=== PATIENT | female | born 1955 | race Caucasian/White ===

== ENCOUNTER 2020-02-21 09:02 | Outpatient (CLI) | payer OTHER, SELFPAY ==
--- NOTE | ~2020-02-21 | XR_ITS ---
EXAMINATION: XR barium swallow DATE: 02/21/2020 10:42 INDICATION: Dysphagia. TECHNIQUE: The patient drank thick barium, gas-producing crystals, and thin barium. Fluoroscopy of th e hypopharynx and esophagus was performed. Fluoroscopy exposure time was minutes. The total number of images was 61. COMPARISON: CT abdomen and pelvis 09/21/2016 FINDINGS: There is no mass or stricture of the esophagus. Esophageal motility is normal. There is no hiatal hernia. IMPRESSION: 1. Normal esophagram. Reviewed, dictated and finalized at location A. GROUND EQUIPMENT ERECTOR IMPRESSION: 1. Normal esophagram.
[2020-02-21 09:42] LABS: Hematocrit 43.2 % (37.0-47.0); Hemoglobin 14.4 g/dL (12.0-15.0); Mean Corpuscular HGB Conc 33.3 g/dl (32-36); Mean Corpuscular Hemoglobin 31.3 pg (26-34); Mean Corpuscular Volume 93.9 fl (80-100); Mean Platelet Volume 9.2 fl (7.4-10.4); Platelet Count Result 284 k/mm3 (150-375); Red Cell Distribution Width 12.2 % (11.5-14.5); White Blood Count 7.7 K/mm3 (4.5-10.0)
[2020-02-21 09:46] LABS: Add Urine Microscopic? YES; Appearance Urine Clear (Clear); Bilirubin Urine Negative (Negative); Blood Urine Negative (Negative); Color Urine Yellow (Yellow); Glucose Urine UA Negative (Negative); Ketones Urine Negative (Negative); Leukocyte Esterase Ur 2+ LEU/UL (NEGATIVE); Mucus Urine Rare /lpf; Nitrate Urine Negative (Negative); Protein Urine Negative (Negative); RBC Urine 0-2 /hpf (0-2); Specific Grav Ur 1.015 (1.001-1.035); Squamous Epithelial Cell Urine Occasional /hpf (Few); Urobilinogen Urine Negative mg/dL (<2.0); WBC Urine 21-30 /hpf (0-3)
[2020-02-21 09:56] LABS: Alanine Aminotransferase 29 U/L (4-35); Albumin Level 4.6 g/dL (3.5-5.1); Alkaline Phosphatase 79 U/L (38-126); Anion Gap 13 mmol/L (8-16); Aspartate Amino Transferase 40 U/L (14-36); Bilirubin,Total 0.7 mg/dL (0.2-1.3); Blood Urea Nitrogen 13 mg/dL (7-17); Calcium 9.4 mg/dL (8.4-10.2); Carbon Dioxide 28 mmol/L (22-30); Chloride 102 mmol/L (98-107); Cholesterol 206 mg/dL (0-200); Estimated Glomerular Filt Rate > 60; Glucose 102 mg/dL (65-105); HDL Direct 57 mg/dL; Potassium 3.9 mmol/L (3.4-5.0); Sodium 143 mmol/L (137-145); Triglycerides 164 mg/dL (<150)
[2020-02-21 10:08] LABS: LDL Cholesterol Direct 124 mg/dL
== END 2020-02-21 09:03 | disposition home or self-care (01) ==
PROVIDERS: PCP Internal Medicine; Visit Provider Internal Medicine
DX: R13.10 Dysphagia, unspecified (principal); I10 Essential (primary) hypertension
CPT/HCPCS: 36415; 74220; 80053; 80061; 81001; 84443; 85027

== ENCOUNTER 2020-03-08 10:01 | Outpatient (CLI) | payer OTHER, SELFPAY ==
[2020-03-08 12:00] LABS: Hepatitis B Surface Antigen Negative (Negative)
[2020-03-08 12:05] LABS: HAV RESULT Negative (Negative); Hepatitis B Core IgM Result Negative (Negative)
[2020-03-08 12:17] LABS: Hepatitis C Virus Antibody Negative (Negative)
== END 2020-03-08 10:02 | disposition home or self-care (01) ==
PROVIDERS: PCP Internal Medicine; Visit Provider Internal Medicine
DX: R74.8 Abnormal levels of other serum enzymes (principal)
CPT/HCPCS: 36415; 80074

== ENCOUNTER 2020-05-28 08:56 | Outpatient (CLI) | payer OTHER, SELFPAY ==
--- NOTE | ~2020-05-28 | MM_ITS ---
EXAMINATION: MM screening [facility] BI w alyson HISTORY: Screening TECHNIQUE: Craniocaudal and mediolateral oblique 3-D tomosynthesis images were obtained and synthetic 2-D images were generated. CAD analysis was submitted and interpreted. COMPARISON: Comparison to multiple prior studies sequentially, with oldest reviewed study dated 01/28. BREAST PARENCHYMAL COMPOSITION: There are scattered areas of fibroglandular density. FINDINGS: There are benign bilateral breast calcifications. There is a benign left breast mass with p eripheral eggshell calcification. There is no evidence of suspicious mass, calcification, or architec tural distortion to suggest malignancy in either breast. There has been no suspicious interval change . IMPRESSION: 1. No mammographic evidence of malignancy. 2. Recommend routine screening mammography in one year. BI-RADS Category 2: Benign finding(s). Reviewed, dictated and finalized at location A. DOFFER
--- NOTE | ~2020-05-28 | DEXA_ITS ---
Bone Density Report Name: Elif Monzon Age: 65 Sex: Female Ethnicity: White Date of : 1955 Indication: postmenopausal; parental hip fracture; inflammatory bowel disease; hysterectomy; Referring Provider: FANNY, AMARJIT Study: Bone densitometry was performed. Exam Date: May 28, 2020 Accession number: [id number] Bone Density: Region BMD T-score Z-score Classification AP Spine (L1-L4) 0.995 -0.5 1.2 Normal Femoral Neck (Left) 0.745 -0.9 0.5 Normal Total Hip (Left) 0.927 -0.1 1.0 Normal Total Hip Bilateral Avg 0.930 -0.1 1.0 Normal Femoral Neck (Right) 0.801 -0.4 1.0 Normal Total Hip (Right) 0.932 -0.1 1.0 Normal World Health Organization criteria for BMD impression classify patients as: Normal (T-score at or above -1.0), Osteopenia (T-score between -1.0 and -2.5), or Osteoporosis (T-score at or below -2.5). 10-year Fracture Risk: FRAX not reported because: All T-scores for Spine Total, Hip Total, Femoral Neck at or above -1.0 Previous Exams: Region Exam Age BMD T-score BMD Change BMD Change Date g/cm2 vs Baseline vs Previous AP Spine(L1-L4) 05/28/2020 65 0.995 -0.5 -0.177(-15.1%) -0.027(-2.6%)* 06/11/2014 59 1.021 -0.2 -0.151(-12.9%) -0.151(-12.9%) 04/23/2009 54 1.172 1.1 Total Hip(Left) 05/28/2020 65 0.927 -0.1 -0.138(-12.9%) -0.030(-3.2%)* 06/11/2014 59 0.957 0.1 -0.107(-10.1%) -0.107(-10.1%) 04/23/2009 54 1.065 1.0 Total Hip(Right) 05/28/2020 65 0.932 -0.1 -0.121(-11.5%) -0.040(-4.1%)* 06/11/2014 59 0.972 0.2 -0.081(-7.7%)# -0.081(-7.7%)# 04/23/2009 54 1.053 0.9 *Denotes significance at 95% confidence level, LSC for AP Spine = 0.022 g/cm2, LSC for Total Hip = 0.027 g/cm2 Clinical Information Provided by Patient: Parent has had a hip fracture Has used the following medications: Vitamin D Has the following medical conditions: Inflammatory bowel diseases, Hysterectomy Patient maximum height was 66 Menopause Age: 54 No regular weight bearing exercise Does not regularly consume dairy products Onset of menses at age 14 Number of children 1 Impression: The patient has normal bone mass. The patient has risk factors, including: parental hip fracture. The BMD for the AP Spine(L1-L4) decreased, changing by -2.6% since the last DXA exam. The BMD for the Total Hip(Left) decreased, changing by -3.2% since the last DXA exam. The BMD for the Total Hip(Right) decreased, changing by -4.1% since t
== END 2020-05-28 08:57 | disposition home or self-care (01) ==
LOC: ANHIMG 08:59
PROVIDERS: Family Provider Internal Medicine; PCP Internal Medicine; Visit Provider Nurse Practitioner
DX: Z12.31 Encounter for screening mammogram for malignant neoplasm of breast (principal); Z78.0 Asymptomatic menopausal state
CPT/HCPCS: 77063; 77067; 77080

== ENCOUNTER 2020-06-19 15:09 | Outpatient (CLI) | payer OTHER, SELFPAY ==
--- NOTE | ~2020-06-19 | XR_ITS ---
XR abdomen/kub 1V DATE: 06/19/2020 15:37 INDICATION: Frequency of micturition TECHNIQUE: Supine AP views COMPARISON: 06/19/[address] abdomen pelvis FINDINGS: There is a moderate amount of fecal material in the colon. No bowel obstruction. The psoas shadows are intact. No visceromegaly is evident. No significant abnormal calcification is detected. Included skeletal structures are unremarkable. IMPRESSION: Nonspecific abdomen Reviewed, dictated and finalized at Location A. Reviewed, dictated and finalized at location B. IMPRESSION: Nonspecific abdomen
--- NOTE | ~2020-06-19 | CT_ITS ---
EXAMINATION: CT abdomen pelvis wo con DATE: 06/19/2020 15:41 INDICATION: Urinary frequency TECHNIQUE: Computed tomography (CT) of the abdomen and pelvis was performed without intravenous contr ast. Automated exposure control and iterative reconstruction technique were employed. Exam dose: 545 .76 mGy-cm total exam DLP. COMPARISON: 09/21/2016 CT abdomen pelvis FINDINGS: The included lower lung zones are clear of infiltrate or consolidation. Normal heart size. No pericardial or pleural effusion. The liver, gallbladder, bile ducts, pancreas, pancreatic duct, spleen, and adrenal glands are unremar kable. Approximately 2 mm nonobstructing lower pole right renal calculus. No other urinary tract calculus or hydroureteronephrosis of either side is noted. No renal mass lesion is evident on this limited noncontrast examination. Normal caliber of the abdominal aorta. No intraperitoneal or retroperitoneal or pelvic mass lesion or adenopathy or ascites. Status post hysterectomy. The urinary bladder is unremarkable. There are numerous diverticula of the sigmoid and descending colon; no evidence of diverticulitis. The appendix is not detected but there is no evidence of diverticulitis. Hemangioma of first lumbar vertebral body. No suspicious osteolytic or osteoblastic lesions are noted . Severe degenerative disc disease and mild retrolisthesis at L5-S1. IMPRESSION: Small lower pole nonobstructing right renal calculus Status post hysterectomy Diverticulosis of the left colon; no CT evidence of diverticulitis Reviewed, dictated and finalized at Location A. Reviewed, dictated and finalized at location B.
== END 2020-06-19 15:10 | disposition home or self-care (01) ==
PROVIDERS: PCP Internal Medicine; Visit Provider Nurse Practitioner Adult Health
DX: R35.0 Frequency of micturition (principal); Z90.710 Acquired absence of both cervix and uterus; N20.1 Calculus of ureter; M47.817 Spondylosis without myelopathy or radiculopathy, lumbosacral region
CPT/HCPCS: 74018; 74176

== ENCOUNTER 2020-08-21 13:36 | Outpatient (CLI) | payer OTHER, SELFPAY | END 2020-08-21 13:37 | disposition home or self-care (01) | LOC: ANHAUDASC 13:41 | PROVIDERS: PCP Internal Medicine; Visit Provider Otolaryngology | DX: H93.12 Tinnitus, left ear (principal); H91.92 Unspecified hearing loss, left ear; H69.82 Other specified disorders of Eustachian tube, left ear | CPT/HCPCS: 92557; 92567 ==

== ENCOUNTER 2022-09-16 15:49 | Outpatient (CLI) | payer MEDICARE, SELFPAY ==
--- NOTE | ~2022-09-16 | MM_ITS ---
EXAMINATION: MM screening [facility] BI w alyson HISTORY: Screening mammogram TECHNIQUE: Craniocaudal and mediolateral oblique 3-D tomosynthesis images were obtained and synthetic 2-D images were generated. CAD analysis was submitted and interpreted. COMPARISON: 05/28/2020, 06/17/2018 bilateral screening mammogram examinations BREAST PARENCHYMAL COMPOSITION: There are scattered areas of fibroglandular density. FINDINGS: Scattered benign calcifications are noted bilaterally. There is no evidence of suspicious m ass, calcification, or architectural distortion to suggest malignancy in either breast. There has bee n no suspicious interval change. IMPRESSION: 1. No mammographic evidence of malignancy. 2. Recommend routine screening mammography in one year. BI-RADS Category 2: Benign finding(s). Reviewed, dictated and finalized at location A.
== END 2022-09-16 15:50 | disposition home or self-care (01) ==
LOC: ANHIMG 15:51
PROVIDERS: PCP Internal Medicine; Visit Provider Obstetrics & Gynecology Gynecology
DX: Z12.31 Encounter for screening mammogram for malignant neoplasm of breast (principal)
CPT/HCPCS: 77063; 77067

== ENCOUNTER 2024-06-25 23:58 | Inpatient (IN) | payer MEDICARE, SELFPAY ==
--- NOTE | ~2024-06-25 | CT_ITS ---
CLINICAL INDICATION: Right lower quadrant pain COMPARISON: 06/26/2024. TECHNIQUE: Multiple contiguous axial images of the abdomen and pelvis were performed without the admi nistration of intravenous contrast The dose-length product (DLP) was 412.33 mGy-cm. Automated exposure control and iterative reconstruction technique were employed. FINDINGS/OBSERVATIONS: Visualized lower thorax: The bilateral lung bases are clear. The heart is of normal size, without pericardial effusion. Liver: The liver demonstrates homogeneous attenuation and is not enlarged. Gallbladder and biliary system: The gallbladder is distended, and otherwise unremarkable. Pancreas: Limited evaluation of the pancreas secondary to the lack of intravenous contrast. Spleen: The spleen demonstrates homogeneous attenuation and is not enlarged. Kidneys: The bilateral kidneys are unremarkable, without hydronephrosis or renal calculi. Adrenal glands: Unremarkable. Gastrointestinal tract: Rectosigmoid diverticulitis is identified with a contained perforation in the right lower quadrant an d a surrounding collection of fluid and air measuring 5.6 x 3.6 x 3.0 cm, with adjacent small bowel ( located cranially), and possibly a fistulous connection to this adjacent loop of small bowel. Appendix: The air-filled appendix is of normal caliber (coronal series, images 39 through 51). Vasculature: Unremarkable. Lymph nodes: Limited evaluation without intravenous contrast. Pelvic structures: The bladder is only minimally distended, and otherwise unremarkable. The uterus is either surgically absent or markedly atrophic. Body wall and musculoskeletal: Small fat-containing umbilical hernia. Degenerative disease at the level of L5/S1 with disc space narrowing and endplate changes. IMPRESSION: Redemonstration of sigmoid diverticulitis now with a 5.6 cm collection of fluid and air in the right hemipelvis, for which an abscess is suspected. Reviewed, dictated and finalized at location A.
--- NOTE | ~2024-06-25 | CT_ITS ---
CT of the Abdomen and Pelvis: Indication: Abdominal pain Technique: 2.5 mm axial scans were obtained through the abdomen and pelvis following intravenous adm inistration of 100 cc of Omnipaque 350. Dose reduction technique was used on this scan by utilizing a utomated exposure control and iterative reconstruction technique. The dose-length product (DLP) was 4 64.97 mGy-cm. Findings: Scans through the lung bases are unremarkable. There is diffuse hepatic steatosis. The spleen, pancreas, gallbladder, adrenals and kidneys are withi n normal limits. No evidence of aortic aneurysm. No lymphadenopathy. There is wall thickening and inflammatory change the distal sigmoid colon, compatible with acute dive rticulitis. There is a small amount of fluid extending to the right side, with additional small bubbl es of free air in the right mid abdomen. No abscess. Images through the pelvis were performed. Urinary bladder unremarkable. Status post hysterectomy. No pelvic mass. No ascites. Impression: Sigmoid diverticulitis with evidence of perforation, with small amount of pneumoperitoneum present, a s detailed above. No abscess evident. Reviewed, dictated and finalized at location . Impression: Sigmoid diverticulitis with evidence of perforation, with small amount of pneum operitoneum present, as detailed above. No abscess evident.
[2024-06-26] VITALS (12 sets, daily range): BP systolic 119–156; BP diastolic 58–86; PULSE 80–131; RESP 15–20; TEMP 36.3–36.9; O2SAT 93–100; BMI 26.8
--- OUTSIDE RECORDS SUMMARY | 2024-06-26 | XMS_ITS | Clinical Summary ---
Author Organization [facility] Address [address] [address] Phone Care Team Providers Care Informatics Coordinator Name Role Phone Jacob Lr MD Primary Care Provider Allergies Active Allergy Reactions Criticality Noted Date Comments Penicillins Rash 11/25/2016 Piperacillin Sod-Tazobactam So Rash 03/24 Medications ALPRAZolam (XANAX) 0.25 MG TabletIndication s:usually takes 2 at night Take 0.25 mg by mouth 3 times daily as needed. Active polycarbophil calcium (FIBERCON) 625 MG Tablet Take 625 mg by mouth daily. Active metoprolol tartrate (LOPRESSOR) 50 MG Tablet Take 75 mg by mouth 2 times daily. Active amitriptyline (ELAVIL) 25 MG Tablet Take 25 mg by mouth nightly. Active cyanocobalamin 1000 MCG Tablet Take 1,000 mcg by mouth daily. Active BIOTIN FORTE PO Take by mouth. Active TURMERIC CURCUMIN PO Take by mouth. Act jesus sulfamethoxazole -trimethoprim DS (BACTRIM DS, SEPTRA DS) 800-160 MG Tablet Take 1 Tab by mouth 2 times daily. Active Probiotic Product (PROBIOTIC DAILY PO) Take by mouth. Activ e polyethylene glycol (MIRALAX) Powder Use entire 255g bottle with 64oz of clear liquid as directed for colonoscopy prep. 255 g 7 Active ondansetron (ZOFRAN ODT) 4 MG TABLET DISPERSIBLE Take 1 Tab by mouth every 8 hours as needed for Nausea. 15 Tab 1 7 Active Additional Information Patient not taking.Reported on 02/11/2017 Cholecalciferol (VITAMIN D PO) Take by mouth. Active Magnesium Oxide (MAG-OX 400 PO) Take 400 mg by mouth. Active Multiple Vitamin (MULTI-VITAMIN PO) Take by mouth. Activ e raNITIdine (ZANTAC) 150 MG Tablet Take 1 Tab by mouth 2 times daily. 180 Tab 7 Active Family History Medical History Relation Name Comments Depression Brother Congestive Heart Failure Father Lung Cancer Mother Cancer Sister 1 breast cancer Cancer Sister 2 uterine Relation Name Status Comments Brother Father Mother Sister 1 Sister 2 Sister 3 IBS Social History Tobacco Use Types Packs/Day Years Used Date Smoking Tobacco: Never Smokeless Tobacco: Never Alcohol Use Standard Drinks/Week Comments No 0 (1 standard drink = 0.6 oz pur e alcohol) Comments Unknown Sex and Gender Information Value Date Recorded Sex Assigned at Not on file Legal Sex Female 7:33 PM CDT Gender Identity Not on file Sexual Orientation Not on file Last Filed Vital Signs Vital Sign Reading Time Taken Comments Blood Pressure 145/86 03/24/2017 12:00 PM WILDLIFE BIOLOGIST Pulse 67 03/24/2017 10:53 AM WILDLIFE BIOLOGIST Temperature 36 C (96.8 F) 03/24/2017 12:00 PM WILDLIFE BIOLOGIST Respiratory Rate 16 03/24/2017 12:00 PM WILDLIFE BIOLOGIST Oxygen Saturation 100% 03/24/2017 12:00 PM WILDLIFE BIOLOGIST Inhaled Oxygen Concentration - - Weight 72.6 kg (160 lb) 03/24/2017 10:53 AM WILDLIFE BIOLOGIST Height 167.6 cm (5' 6 ) 03/24/2017 10:53 AM WILDLIFE BIOLOGIST Body Mass Index 25.82 03/24/2017 10:53 AM WILDLIFE BIOLOGIST Plan of Treatment Health Maintenance Due Date Last Done Comments DEXA Bone Density 1955 Hepatitis C Virus (HCV) Screening 1955 TdaP Immunization 1955 Colonoscopy 2002 Colorectal Cancer Screening 2002 Cologuard 2007 Immunochemical Fecal Occult Blood 2007 Mammogram 2007 Pneumococcal Immunization (5 0+ years) (1 of 1 - PCV) 2007 Zoster Immunization (1 of 2) 2007 Influenza Immunization (#1) 2023 SARS-COV-2 Immunization ( - 2023-25 season) 2023 Respiratory Syncytial Virus (RSV) Immunization (Adult) (1 - 1-dose 75+ series) 02/02/2032 Hepatitis B Immunization Aged Out No longer eligible based on patient's age to complete this topic Meningococcal Immunization (ACWY) Aged Out No longer eligible based on patient's age to complete this topic Rotavirus Immunization Aged Out No lo nger eligible based on patient's age to complete this topic Care Teams Informatics Coordinator Relationship Specialty Start Date End Date Jacob Lr MD [address] [place], [place] [id number] PCP - General Internal Medicine 11/24/16
--- OUTSIDE RECORDS SUMMARY | 2024-06-26 | XMS_ITS | Continuity of Care Document ---
Author Organization [facility] Address [address] [facility] [place] [address] Phone Care Team Providers Care Soap Drier Operator Name Role Phone Maryan HATCH FACS, Kasi Unavailable Unavailab le Procedures Procedure Date Eye Exam Established Pt Office/outpatient Visit, Est Eye Exam & Treatment Eye Exam Established Pt Advance Directives Directive Yes / No Effective Date File Name No Information Encounters Encounter Description Practice Location Reason(s) For Visit Diagnoses Date Provider Providers Copied on Encounter [facility], [address] [place] [address] [address], [place], [place], [address], [place] tel:[phone] SEC Pat Abhishek Cox No Information 1 7 Maryan Villaseñor. [address] [facility], [address], [place], [place], [address], [place]. tel:[phone] Office/outpat ient Visit, Est [facility], [address] [place] [address] [address], [place], [place], [address], [place] tel:[phone] [facility] No Information 0-[address] [facility], [address], [place], [place], [address], [place]. tel:[phone] [facility], [address] [place] [address] [address], [place], [place], [address], [place] tel:[phone] [facility] No Information 6-[address], [place], [place], [address], [place]. tel:[phone] [facility] Eye [facility], [address], [place], [place], [address], [place] tel:[phone] [facility] No Information [address], [address], [place], [place], [address], [place]. tel:[phone] Family History Family Member Type Diagnosis Age At Onset No Information Payers Payer name Insurance type Covered green party ID Authoriza tion(s) No Information Social History Type Description Quantity Date Captured Comments Sex Female Smoking Status No Information Chief Complaint And Reason For Visit No Information Reason For Referral Reason For Referral No Information History Of Present Illness Encounter Date Complaint History Of Prese nt Illness No Information Functional Status Date Functional Assessmen t No Information Instructions Date Instruction Additional Infor mation No Information Assessments Type Assessment Date No Information Patient Care Teams Name Effective Dates (start - stop) Status Members No Information
--- OUTSIDE RECORDS SUMMARY | 2024-06-26 | XMS_ITS | Continuity of Care Document ---
Author Name [facility] Organization [facility] Care Team Providers Care Electroplater Automatic Name Role Phone [facility] Unavailable Unavailable Immunizations Combined list of available immunizations from the Department of Defense and Veterans Affairs facilities. Immunization Series Date Given Administered By Site Reaction Lot Number [id number] Code Drug Medical Services Coordinator Status Comments Source COVID-19 (MODERNA), MRNA, LNP-S, PF, 100 MCG/0.5 ML DOSE 3 2020 207 complet ed MOD; [id number]; 2 [facility]
--- OUTSIDE RECORDS SUMMARY | 2024-06-26 02:44 | XMS_ITS | Clinical Summary ---
Author Organization [facility] Address [address] [address] Phone Care Team Providers Care Labor Commissioner Name Role Phone Jacob Lr MD Primary Care Provider [phone] Allergies Active Allergy Reactions Criticality Noted Date [...] Comments Blood Pressure 145/86 03/24/2017 12:00 PM RN PLACEMENT Pulse 67 03/24/2017 10:53 AM RN PLACEMENT Temperature 36 C (96.8 F) 03/24/2017 12:00 PM RN PLACEMENT Respiratory Rate 16 03/24/2017 12:00 PM RN PLACEMENT Oxygen Saturation 100% 03/24/2017 12:00 PM RN PLACEMENT Inhaled Oxygen Concentration - - Weight 72.6 kg (160 lb) 03/24/2017 10:53 AM RN PLACEMENT Height 167.6 cm (5' 6 ) 03/24/2017 10:53 AM RN PLACEMENT Body Mass Index 25.82 03/24/2017 10:53 AM RN PLACEMENT Plan of Treatment Health Maintenance Due Date [...] age to complete this topic Care Teams Labor Commissioner Relationship Specialty Start Date End Date Jacob Lr MD [address] [place], [place] [id number] PCP - General Internal Medicine 11/24/16
--- OUTSIDE RECORDS SUMMARY | 2024-06-26 02:44 | XMS_ITS | Continuity of Care Document ---
Author Name [facility] Organization [facility] Care Team Providers Care Certified Novell Administrator Name Role Phone [facility] Unavailable Unavailable Immunizations Combined list of available immunizations from the Department of Defense and Veterans Affairs facilities. Immunization Series Date Given Administered By Site Reaction Lot Number CVX Code Drug Seo Coordinator Status Comments Source COVID-19 (MODERNA), MRNA, LNP-S, PF, 100 MCG/0.5 ML DOSE 3 2020 207 complet ed MOD; [id number]; 2 [facility]
--- OUTSIDE RECORDS SUMMARY | 2024-06-26 02:44 | XMS_ITS | Continuity of Care Document ---
Author Organization [facility] Address [address] [place] [address] Phone Care Team Providers Care Baseball Coach Name Role Phone Maryan HATCH FACS, Kais Unavailable Unavailab le Procedures Procedure Date Eye Exam Established Pt Office/outpatient Visit, Est Eye Exam & Treatment Eye Exam Established Pt Advance Directives Directive Yes / No Effective Date File Name No Information Encounters Encounter Description Practice Location Reason(s) For Visit Diagnoses Date Provider Providers Copied on Encounter [facility], [address] [place] [address] [address], [place], [place], [address], [place] tel:[phone] SEC Pat Abhishek Cox No Information 1 7 Maryan Villaseñor. [address] [employer] [facility], [address], [place], [place], [address], [place]. tel:[phone] Office/outpat ient Visit, Est [facility], [address] [place] [address] [address], [place], [place], [address], [place] tel:[phone] [facility] No Information 0-[address] [facility], [address], [place], [place], [address], [place]. tel:[phone] [facility], [address] [place] [address] [address], [place], [place], [address], [place] tel:[phone] [facility] No Information 6-[address], [place], [place], [address], [place]. tel:[phone] [facility] Eye [facility], [address], [place], [place], [address], [place] tel:[phone] [facility] No Information [address], [place], [place], [address], [place]. tel:[phone] Family History Family Member Type Diagnosis Age [...]
[2024-06-26 03:08] LABS: Basophils Absolute Auto 0.1 K/mm3 (0.0-0.1); Basophils Percent Auto 0.3 % (0.2-1.2); Eosinophils Percent Auto 0.1 % (0-4.4); Hematocrit 42.6 % (37.0-47.0); Hemoglobin 14.3 g/dL (12.0-15.0); Immature Granulocyte Absolute 0.07 K/mm3 (0.00-0.031); Immature Granulocyte Percent A 0.4 % (0-0.5); Lymphocytes Absolute Auto 1.32 K/mm3 (0.9-3.2); Lymphocytes Percent Auto 7.4 % (18.3-44.2); Mean Corpuscular HGB Conc 33.6 g/dl (32-36); Mean Corpuscular Hemoglobin 31.2 pg (26-34); Mean Platelet Volume 9.4 fl (7.4-10.4); Monocytes Percent Auto 5.4 % (2.6-8.5); Neutrophils Absolute Auto 15.4 K/mm3 (1.3-6.7); Neutrophils Percent Auto 86.4 % (45.5-73.1); Platelet Count Result 287 k/mm3 (150-375); Red Blood Count 4.58 M/mm3 (4.2-5.4); Red Cell Distribution Width 12.3 % (11.5-14.5); White Blood Count 17.8 K/mm3 (4.5-10.0)
[2024-06-26 03:43] LABS: Alanine Aminotransferase 33 U/L (6-35); Albumin Level 4.5 g/dL (3.5-5.1); Alkaline Phosphatase 67 U/L (38-126); Anion Gap 13 mmol/L (4-12); Aspartate Amino Transferase 48 U/L (14-36); Bilirubin,Total 0.9 mg/dL (0.2-1.3); Blood Urea Nitrogen 14 mg/dL (7-17); Calcium 9.8 mg/dL (8.4-10.2); Carbon Dioxide 23 mmol/L (22-30); Chloride 102 mmol/L (98-107); Estimated CRCL calculation 49 ml/min; Estimated Glomerular Filt Rate > 60; Glucose 134 mg/dL (65-110); Lipase 209 U/L (23-300); Potassium 4.4 mmol/L (3.4-5.0); Sodium 138 mmol/L (137-145)
[2024-06-26] MEDS: ONDANSETRON INJ 4 MG/2 ML VIAL IV PUSH (04:05)
[2024-06-26] MEDS: HYDROmorphone HCL INJ (*CRX) 1 MG/ML SYR 0.5 MG IV PUSH (04:05)
[2024-06-26 04:13] LABS: Add Urine Microscopic? NO; Appearance Urine Clear (Clear); Bilirubin Urine Negative (Negative); Blood Urine Negative (Negative); Color Urine Yellow (Yellow); Glucose Urine UA Negative (Negative); Ketones Urine Negative (Negative); Leukocyte Esterase Ur Negative LEU/UL (Negative); Nitrate Urine Negative (Negative); Protein Urine Negative (Negative); Specific Grav Ur 1.013 (1.001-1.035); Urobilinogen Urine 0.2 mg/dL (<2.0)
[2024-06-26] MEDS: CEFEPIME 2 GM/NS 50 ML 2 GM/50 ML BAG IVPB (04:27)
[2024-06-26] MEDS: SODIUM CHLORIDE 0.9% IV 1,000 ML 999 ML IV CONT ×2 (04:27→04:28)
[2024-06-26] MEDS: SODIUM CHLORIDE 0.9% IV 300 ML 999 ML IV CONT (04:28)
[2024-06-26 04:42] LABS: BEDSIDEPREGUCG Negative (Negative)
[2024-06-26] MEDS: metroNIDAZOLE 500 MG/ISO 100ML 500 MG/100 ML BAG 100 MG IVPB ×3 (05:34→17:35)
--- NOTE | 2024-06-26 05:35 | ECG_ITS ---
Test Date: 2024-06-26 06:04:12 Measurements Intervals [place] Rate: 118 P: -3 CO: 150 QRS: 5 QRSD: 87 T: 29 QT: 348 QTc: 488 Interpretive Statements SINUS TACHYCARDIA NONSPECIFIC ST AND T-WAVE ABNORMALITY ABNORMAL ECG No previous ECG available for comparison Electronically Signed On 06-26-2024 06:54:05 CDT by Gaudencio Garcia M.D.
--- NOTE | 2024-06-26 05:56 | ED_ITS ---
HPI - General Adult General Chief complaint: Abdominal Pain Stated complaint: Right lower abd pain Time Seen by Provider: 06/26/24 02:32 History of Present Illness HPI narrative: This is a 69-year-old female presenting ED with chief complaint of abdominal pain. Yesterday she developed pain across her lower abdomen that then localized to the lower right quadrant. She has had a fever of 100.4 at home. She has had episode of nausea vomiting some minor diarrhea. She denies chest pain difficulty breathing urinary symptoms. Related Data Home Medications ?Medication ?Instructions ?Recorded ?Confirmed ?Last Taken ?Type alprazolam 0.25 mg tablet 0.25 mg PO BID 07/24/20 06/01/22 Unknown History amitriptyline 25 mg tablet 25 mg PO QHS 07/24/20 06/01/22 Unknown History metoprolol tartrate 50 mg tablet 50 mg PO BID 07/24/20 06/01/22 Unknown History oxybutynin chloride 5 mg tablet 5 mg PO DAILY 06/01/22 06/01/22 Unknown History Allergies Allergy/AdvReac Type Severity Reaction Status Date / Time Penicillins Allergy Unknown Unknown Verified 06/25/24 23:58 piperacillin Allergy Unknown unknown Verified 06/25/24 23:58 tazobactam Allergy Unknown unknown Verified 06/25/24 23:58 PIPERACILLIN SODIUM Allergy Unknown RASH Uncoded 06/01/22 13:14 TAZOBACTAM SODIUM Allergy Unknown RASH Uncoded 06/01/22 13:14 PMFSH Family History Family History Sibling Depression Family history of malignant neoplasm of uterus Family history of malignant neoplasm of breast in first degree relative Patient's sister is in good health Mother Family history of lung cancer Father Family history of congestive heart failure Family history of heart disease in male family member before age 55 Other Family history of cardiovascular disease Hypertension Social History Social History (Updated 06/01/22 @ 13:31 by Milka Ogden [facility]) Smoking status: Never smoker Alcohol intake: never Lack of Transportation: No Lack of Food: Never True Current Housing: I Have Housing Concerned About Future Housing: No Difficulty Paying Gas/Electric Bills: No Difficulty Paying for Meds: No Currently Unemployed: No Education: Bachelor's Degree Difficulty w/ Childcare or Family Care: No Exam 2 Narrative: APPEARANCE: No apparent distress. Head: atraumatic. EYES: EOMI, NOSE: Atraumatic NECK: Trachea midline RESPIRATORY: No increased rate of breathing CARDIOVASCULAR: RRR, ABDOMINAL: Tenderness in the right lower quadrant with voluntary guarding. There is the abdomen is soft nontender with no guarding rebound MUSCULOSKELETAl: No obvious deformities NEURO: Alert. Moving 4/4 extremities SKIN:: Warm, dry. Normal color PSYCHIATRIC: Normal affect Course Vital Signs Vital signs: Vital Signs Temperature 97.6 F 06/26/24 00:08 Pulse Rate 97 06/26/24 00:08 Respiratory Rate 20 06/26/24 00:08 Blood Pressure 152/86 H 06/26/24 00:08 Pulse Oximetry 100 06/26/24 00:08 Oxygen Delivery Room Air 06/26/24 00:08 Temperature 97.6 F 06/26/24 00:08 Pulse Rate 131 H 06/26/24 04:39 Respiratory Rate 15 06/26/24 04:39 Blood Pressure 156/86 H 06/26/24 04:39 Pulse Oximetry 95 06/26/24 04:39 Oxygen Delivery Room Air 06/26/24 00:08 Medical Decision Making [facility] Narrative Medical decision making narrative: -Course: 69-year-old female presenting with right lower quadrant abdominal pain. Surprisingly the CT showed diverticulitis with microperforation. White count is elevated 18. She was started on cefepime Flagyl due to a penicillin allergy. She has been given fluid resuscitation. Patient will be admitted the hospital for management of her diverticulitis. -DDX includes but is not limited to: Appendicitis, cholecystitis, diverticulitis, UTI -Co-morbidities complicating care: Sinus tachycardia, penicillin allergy -Independent interpretation of studies: White count 17.8. Rest her labs within normal limits CT showed diverticulitis with microperforation. -Discussion of Management/Consultants: [facility] Independent EKG interpretation: Rhythm [sinus], Rate [118], [place] -[normal], [place] -[normal], QRS [narrow], QTC [normal], T waves -[negative for concerning inversions], ST Segments - [Negative for concerning elevations] Final interpretations: [Normal Sinus Rhythm] Vital Signs Vital Signs: Vital Signs Temperature 97.6 F 06/26/24 00:08 Pulse Rate 97 06/26/24 00:08 Respiratory Rate 20 06/26/24 00:08 Blood Pressure 152/86 H 06/26/24 00:08 Pulse Oximetry 100 06/26/24 00:08 Oxygen Delivery Room Air 06/26/24 00:08 Temperature 97.6 F 06/26/24 00:08 Pulse Rate 131 H 06/26/24 04:39 Respiratory Rate 15 06/26/24 04:39 Blood Pressure 156/86 H 06/26/24 04:39 Pulse Oximetry 95 06/26/24 04:39 Oxygen Delivery Room Air 06/26/24 00:08 Lab Data 06/26/24 02:58 06/26/24 02:58 Labs: Lab Results 06/26/24 06/26/24 06/26/24 Range/Units 02:58 04:02 04:40 WBC 17.8 H (4.5-10.0) K/mm3 RBC 4.58 (4.2-5.4) M/mm3 Hgb 14.3 (12.0-15.0) g/dL Hct 42.6 (37.0-47.0) % MCV 93.0 (80-100) fl MCH 31.2 (26-34) pg MCHC 33.6 (32-36) g/dl RDW 12.3 (11.5-14.5) % Plt Count 287 (150-375) k/mm3 MPV 9.4 (7.4-10.4) fl Immature Gran % (Auto) 0.4 (0-0.5) % Neut % (Auto) 86.4 H (45.5-73.1) % Lymph % (Auto) 7.4 L (18.3-44.2) % [place] % (Auto) 5.4 (2.6-8.5) % Eos % (Auto) 0.1 (0-4.4) % Baso % (Auto) 0.3 (0.2-1.2) % Lymph # (Auto) 1.32 (0.9-3.2) K/mm3 [place] # (Auto) 1.0 H (0.1-0.6) K/mm3 Eos # (Auto) 0.0 (0-0.3) K/mm3 Baso # (Auto) 0.1 (0.0-0.1) K/mm3 Abs Immat Gran (auto) 0.07 H (0.00-0.031) K/mm3 Absolute Neuts (auto) 15.4 H (1.3-6.7) K/mm3 Absolute Nucleated RBC 0.000 (0.0-0.012) K/mm3 Nucleated RBC % 0.0 (0.0-0.2) % Sodium 138 (137-145) mmol/L Potassium 4.4 (3.4-5.0) mmol/L Chloride 102 (98-107) mmol/L Carbon Dioxide 23 (22-30) mmol/L Anion Gap 13 H (4-12) mmol/L BUN 14 (7-17) mg/dL Creatinine 0.91 (0.7-1.0) mg/dL Estim Creat Clear Calc 49 ml/min Estimated GFR > 60 (59 - ) Glucose 134 H (65-110) mg/dL Calcium 9.8 (8.4-10.2) mg/dL Total Bilirubin 0.9 (0.2-1.3) mg/dL AST 48 H (14-36) U/L ALT 33 (6-35) U/L Alkaline Phosphatase 67 (38-126) U/L Total Protein 8.0 (6.3-8.2) g/dL Albumin 4.5 (3.5-5.1) g/dL Lipase 209 (23-300) U/L Urine Color Yellow (Yellow) Urine Appearance Clear (Clear) Urine pH 8.0 (5.0-9.0) Ur Specific [place] 1.013 (1.001-1.035) Urine Protein Negative (Negative) mg/dL Urine Glucose (UA) Negative (Negative) mg/dL Urine Ketones Negative (Negative) mg/dL Ur Blood (Man) Negative (Negative) Urine Nitrate Negative (Negative) Urine Bilirubin Negative (Negative) Urine Urobilinogen 0.2 (<2.0) mg/dL Leukocyte Esterase Rfl Negative (Negative) RAVINDER/UL POC Urine HCG, Qual Negative (Negative) Critical Care Time Critical Care Time Critical Care Time: Yes Total Critical Care Time: 35 Discharge Plan Discharge Clinical Impression: Diverticulitis Patient Disposition: Still a Patient Condition: Stable Patient Language: [place] Prescriptions: No Action oxybutynin chloride 5 mg tablet 5 mg PO DAILY mupirocin 2 % ointment 1 applic topical BID Qty: 22 3RF metoprolol tartrate 50 mg tablet 50 mg PO BID amitriptyline 25 mg tablet 25 mg PO QHS alprazolam 0.25 mg tablet 0.25 mg PO BID Follow-up/Referrals: Jacob Lr MD [Primary Care Provider] -
[2024-06-26] MEDS: HYDROmorphone HCL INJ (*CRX) 1 MG/ML SYR IV PUSH (07:01)
--- NOTE | 2024-06-26 08:17 | ADMGEN ---
This patient, Elif Monzon, was admitted to Medical Room 349-01. Patient/family oriented to hospital policies and general routines including ID bracelet, bed and alarms, visiting hours, pain management, procedures, bathroom and other care routines, personal items, smoking policy, room service/diet, and visiting hours. Information on how to activate the Rapid Response Team has been discussed. Patient/Family are encouraged to report perceived risks to care and to ask questions if they do not understand what they are told or what they should do.
--- NOTE | 2024-06-26 13:11 | P.CONGS_ITS ---
Assessment and Plan Assessment and plan (1) Diverticulitis of colon with perforation: Code(s): K57.20 - Diverticulitis of large intestine with perforation and abscess without bleeding Status: Acute Assessment and Plan: exam largely benign, continue serial exams and IV antibiotics, recheck labs in morning, okay with clear liquid diet for now History of Present Illness Consult details Consult date: 06/26/24 Reason for consult: abdominal pain Requesting physician: Su Llanes APRN Narrative: The patient is a 69-year-old female presenting to the emergency department complaining lower abdominal pain. The patient reports the pain started yesterday and progressively became more severe. The patient reports the pain is in her bilateral lower abdomen, right greater than left. The patient reports associated anorexia, nausea. The patient also reports 1 episode of emesis and some diarrhea. The patient reports some low-grade temperatures at home. The patient reports this is very similar to her previous episode of diverticulitis requiring hospitalization in 2005. The patient reports minor episodes in the interim, however none requiring hospitalizations or antibiotics. Review of Systems 2 Review of Systems: All systems reviewed & are unremarkable except as noted in HPI and below PMFSH Family History Family History Sibling Depression Family history of malignant neoplasm of uterus Family history of malignant neoplasm of breast in first degree relative Patient's sister is in good health Mother Family history of lung cancer Father Family history of congestive heart failure Family history of heart disease in male family member before age 55 Other Family history of cardiovascular disease Hypertension Social History Social History Smoking status: Never smoker Alcohol intake: never Substance use: never Substance use type: does not use Do You Feel Safe in your Home?: Yes Lack of Transportation: No Lack of Food: Never True Current Housing: I Have Housing Concerned About Future Housing: No Difficulty Paying Gas/Electric Bills: No Difficulty Paying for Meds: No Currently Unemployed: No Education: Bachelor's Degree Difficulty w/ Childcare or Family Care: No Spiritual care concerns: No Meds Home Medications and Allergies Home Medications ?Medication ?Instructions ?Recorded ?Confirmed ?Type alprazolam 0.25 mg tablet 0.25 mg PO BID 07/24/20 06/26/24 History amitriptyline 25 mg tablet 25 mg PO QHS 07/24/20 06/26/24 History metoprolol tartrate 50 mg tablet 50 mg PO BID 07/24/20 06/26/24 History Allergies Allergy/AdvReac Type Severity Reaction Status Date / Time Penicillins Allergy Unknown Unknown Verified 06/26/24 08:35 piperacillin Allergy Unknown Rash Verified 06/26/24 08:36 tazobactam Allergy Unknown Rash Verified 06/26/24 08:36 Vital Signs Vital Signs - 24 hr 06/26/24 00:08 06/26/24 04:39 06/26/24 07:16 Temperature 36.4 C Pulse Rate 97 131 H 119 H Respiratory Rate 20 15 15 Blood Pressure 152/86 H 156/86 H 144/80 H Pulse Oximetry 100 95 96 Oxygen Delivery Room Air 06/26/24 07:59 06/26/24 08:05 Temperature 36.9 C Pulse Rate 117 H 115 H Respiratory Rate 15 Blood Pressure 143/84 H Pulse Oximetry 99 Oxygen Delivery Exam 2 Const: General: cooperative, comfortable and no acute distress HENMT: Head: normal to inspection, normocephalic and atraumatic Eyes: General: appearance normal, both eyes and all related structures Neck: Neck: normal visual inspection, full ROM and no lymphadenopathy Resp: Auscultation: clear to auscultation bilaterally Cardio: Rate: regular rate Rhythm: regular rhythm GI: Inspection: normal to inspection and non-distended GI Palp: Yes abdominal tenderness, Yes Soft to palpation, Yes Tenderness to palpation present (GI), No Guarding due to palpation present (GI) and No Rigid due to palpation Skin: General skin exam: normal color and no rashes or lesions noted Neuro: General: patient oriented x3 and CN's II-XI intact bilaterally Extrem: General: normal to inspection and full ROM Results Labs 06/26/24 02:58 06/26/24 02:58 Labs: Abnormal lab results 06/26/24 Range/Units 02:58 WBC 17.8 H (4.5-10.0) K/mm3 Neut % (Auto) 86.4 H (45.5-73.1) % Lymph % (Auto) 7.4 L (18.3-44.2) % [place] # (Auto) 1.0 H (0.1-0.6) K/mm3 Abs Immat Gran (auto) 0.07 H (0.00-0.031) K/mm3 Absolute Neuts (auto) 15.4 H (1.3-6.7) K/mm3 Anion Gap 13 H (4-12) mmol/L Glucose 134 H (65-110) mg/dL AST 48 H (14-36) U/L Diabetes panel 06/26/24 Range/Units 02:58 Sodium 138 (137-145) mmol/L Potassium 4.4 (3.4-5.0) mmol/L Chloride 102 (98-107) mmol/L Carbon Dioxide 23 (22-30) mmol/L BUN 14 (7-17) mg/dL Creatinine 0.91 (0.7-1.0) mg/dL Glucose 134 H (65-110) mg/dL Calcium 9.8 (8.4-10.2) mg/dL AST 48 H (14-36) U/L ALT 33 (6-35) U/L Alkaline Phosphatase 67 (38-126) U/L Total Protein 8.0 (6.3-8.2) g/dL Albumin 4.5 (3.5-5.1) g/dL Calcium panel 06/26/24 Range/Units 02:58 Calcium 9.8 (8.4-10.2) mg/dL Albumin 4.5 (3.5-5.1) g/dL Pituitary panel 06/26/24 Range/Units 02:58 Sodium 138 (137-145) mmol/L Potassium 4.4 (3.4-5.0) mmol/L Chloride 102 (98-107) mmol/L Carbon Dioxide 23 (22-30) mmol/L BUN 14 (7-17) mg/dL Creatinine 0.91 (0.7-1.0) mg/dL Glucose 134 H (65-110) mg/dL Calcium 9.8 (8.4-10.2) mg/dL Adrenal panel 06/26/24 Range/Units 02:58 Sodium 138 (137-145) mmol/L Potassium 4.4 (3.4-5.0) mmol/L Chloride 102 (98-107) mmol/L Carbon Dioxide 23 (22-30) mmol/L BUN 14 (7-17) mg/dL Creatinine 0.91 (0.7-1.0) mg/dL Glucose 134 H (65-110) mg/dL Calcium 9.8 (8.4-10.2) mg/dL Total Bilirubin 0.9 (0.2-1.3) mg/dL AST 48 H (14-36) U/L ALT 33 (6-35) U/L Alkaline Phosphatase 67 (38-126) U/L Total Protein 8.0 (6.3-8.2) g/dL Albumin 4.5 (3.5-5.1) g/dL All other labs normal. Imaging Abdomen CT scan report/results: report reviewed and image reviewed
[2024-06-26] MEDS: METOPROLOL TARTRATE INJ 5 MG/5 ML VIAL IV PUSH (13:36)
[2024-06-26] MEDS: HYDROcodone/acetaminophen (*CRX) 5-325 MG TABLET 1 TAB PO ×2 (13:42→18:44)
--- NOTE | 2024-06-26 13:51 | P.HP_ITS ---
H&P: HPI History of Present Illness Date/Time: 06/26/24 13:51 Chief Complaint: ABD pain/Nausea Narrative: Patient is a 69-year-old female presented to the emergency department with complaints of new onset abdominal pain. Patient reports she has a past medical history of diverticulosis but has had an exacerbation for many years. Patient states abdominal pain began early yesterday morning but continue to worsen and she started having nausea but no vomiting. Patient denied any chest pain, shortness a breath, vomiting, or blood in stool. Patient's WBC 17.4 otherwise labs unremarkable which she was found be tachycardic as high as 131. CT abdomen showing and diverticulitis with micro perforation. Patient was then admitted to the medical unit for further evaluation treatment diverticulitis. Upon asse ssment ordered blood cultures x2 and transition patient to IV Rocephin and Flagyl. Review of Systems Review of Systems: All systems reviewed & are unremarkable except as noted in HPI and below PMFSH Past Medical History Medical History Tachycardia GERD (gastroesophageal reflux disease) Diverticulitis Family History Family History Sibling Depression Family history of malignant neoplasm of uterus Family history of malignant neoplasm of breast in first degree relative Patient's sister is in good health Mother Family history of lung cancer Father Family history of congestive heart failure Family history of heart disease in male family member before age 55 Other Family history of cardiovascular disease Hypertension Social History Social History Smoking status: Never smoker Alcohol intake: never Substance use: never Substance use type: does not use Do You Feel Safe in your Home?: Yes Lack of Transportation: No Lack of Food: Never True Current Housing: I Have Housing Concerned About Future Housing: No Difficulty Paying Gas/Electric Bills: No Difficulty Paying for Meds: No Currently Unemployed: No Education: Bachelor's Degree Difficulty w/ Childcare or Family Care: No Spiritual care concerns: No Meds Home Medications and Allergies Home Medications ?Medication ?Instructions ?Recorded ?Confirmed ?Type alprazolam 0.25 mg tablet 0.25 mg PO BID 07/24/20 06/26/24 History amitriptyline 25 mg tablet 25 mg PO QHS 07/24/20 06/26/24 History metoprolol tartrate 50 mg tablet 50 mg PO BID 07/24/20 06/26/24 History Allergies Allergy/AdvReac Type Severity Reaction Status Date / Time Penicillins Allergy Unknown Unknown Verified 06/26/24 08:35 piperacillin Allergy Unknown Rash Verified 06/26/24 08:36 tazobactam Allergy Unknown Rash Verified 06/26/24 08:36 Vital Signs Vital Signs - 24 hr 06/26/24 00:08 06/26/24 04:39 06/26/24 07:16 Temperature 97.6 F Pulse Rate 97 131 H 119 H Respiratory Rate 20 15 15 Blood Pressure 152/86 H 156/86 H 144/80 H Pulse Oximetry 100 95 96 Oxygen Delivery Room Air 06/26/24 07:59 06/26/24 08:05 06/26/24 13:33 Temperature 98.4 F Pulse Rate 117 H 115 H 112 H Respiratory Rate 15 18 Blood Pressure 143/84 H 124/68 Pulse Oximetry 99 93 Oxygen Delivery 06/26/24 13:36 Temperature Pulse Rate 114 H Respiratory Rate Blood Pressure Pulse Oximetry Oxygen Delivery Exam Const: General: comfortable and no acute distress Other: Pleasant female looks stated age HENMT: Mouth: Yes moist mucous membranes Eyes: General: appearance normal, both eyes and all related structures Pupils: Equal, round and reactive pupils present Cardio: Rate: tachycardic Rhythm: regular rhythm GI: GI Palp: Yes Soft to palpation and Yes Tenderness to palpation present (GI) Auscultation: normal bowel sounds Skin: General skin exam: normal color and no rashes or lesions noted Wounds: no wounds Neuro: Speech: normal speech Sensory Exam: normal sensation Extrem: General: normal to inspection Psych: Mental Status: mental status grossly normal H&P: Results Labs Labs: Short CBC 06/26/24 Range/Units 02:58 WBC 17.8 H (4.5-10.0) K/mm3 Hgb 14.3 (12.0-15.0) g/dL Hct 42.6 (37.0-47.0) % Plt Count 287 (150-375) k/mm3 BMP 06/26/24 02:58 Sodium 138 Potassium 4.4 Chloride 102 Carbon Dioxide 23 BUN 14 Creatinine 0.91 Glucose 134 H Calcium 9.8 Liver Function 06/26/24 Range/Units 02:58 Total Bilirubin 0.9 (0.2-1.3) mg/dL AST 48 H (14-36) U/L ALT 33 (6-35) U/L Alkaline Phosphatase 67 (38-126) U/L Albumin 4.5 (3.5-5.1) g/dL Urine 06/26/24 Range/Units 04:02 Urine Color Yellow (Yellow) Urine Appearance Clear (Clear) Urine pH 8.0 (5.0-9.0) Ur Specific [place] 1.013 (1.001-1.035) Urine Protein Negative (Negative) mg/dL Urine Glucose (UA) Negative (Negative) mg/dL Assessment and Plan Assessment and plan (1) Diverticulitis of colon with perforation: Code(s): K57.20 - Diverticulitis of large intestine with perforation and abscess without bleeding Status: Acute Assessment and Plan: Patient reports history of diverticulosis but has not had exacerbation admitting years. * CT abdomen showing diverticulitis with microperforation * Received IV cefepime in the emergency department switched to IV Rocephin and Flagyl * Blood cultures pending * Surgery consulted recommended continue current treatment can advance to clear liquids * Afebrile * Serial CBC/CMP and ABD exams * pain control with Dilaudid * Antiemetics * PPI (2) Tachycardia: Code(s): R00.0 - Tachycardia, unspecified Status: Acute Assessment and Plan: * HR as high as 131 * Resumed patient's metoprolol * Cardiac monitoring Plan DVT prophylaxis: SCDs Stress ulcer prophylaxis: Protonix 40 daily PT/OT notes: Ambulatory Disposition: Patient continues admission to the medical unit for further evaluation and treatment diverticulitis with micro perforation will continue with IV antibiotic therapy surgery following advance diet to clear liquid. Patient is ambulatory plan will be to return home when medically stable. Quality VTE Prophylaxis VTE prophylaxis: mechanical ordered -Patient's previous records reviewed on admission -ER notes reviewed in detail on admission -discussed all findings and current treatment plan with patient/Family/POA -Consultations reviewed for recommendations -Patient's disposition for safe discharge discussed with keycase assembler Dictation performed by [employer] direct speech recognition software, therefore lang path therapist variants and typographical errors may occur. Hospitalist MIPS Advance Care Plan I have confirmed that the patient's Advanced Care Plan is present, code status is documented, or surrogate decision maker is listed in patient medical record.: Yes Medication Reconciliation I have utilized all available resources to obtain, update and review the patients current medications (includes all prescriptions, OTC, herbals, cannabis, and nutritional supplements).: Yes The patient is not eligible for med reconciliation; the patient is in a emergent medical situation where delaying treatment would jeopardize the patients health.: No
[2024-06-26] MEDS: ALPRAZolam (*CRX) 0.25 MG TABLET PO (17:35)
[2024-06-26] MEDS: METOPROLOL TARTRATE 50 MG TAB PO (21:07)
[2024-06-26] MEDS: AMITRIPTYLINE HCL 25 MG TABLET PO (21:07)
[2024-06-27] VITALS (13 sets, daily range): BP systolic 115–134; BP diastolic 53–69; PULSE 83–106; RESP 18–20; TEMP 35.9–37; O2SAT 97–98
[2024-06-27] MEDS: metroNIDAZOLE 500 MG/ISO 100ML 500 MG/100 ML BAG 100 MG IVPB ×3 (01:10→16:30)
[2024-06-27] MEDS: HYDROcodone/acetaminophen (*CRX) 5-325 MG TABLET 1 TAB PO ×2 (05:22→19:45)
[2024-06-27 05:39] LABS: Basophils Percent Auto 0.2 % (0.2-1.2); Eosinophils Percent Auto 0.1 % (0-4.4); Hematocrit 35.6 % (37.0-47.0); Hemoglobin 11.5 g/dL (12.0-15.0); Immature Granulocyte Absolute 0.05 K/mm3 (0.00-0.031); Immature Granulocyte Percent A 0.4 % (0-0.5); Lymphocytes Percent Auto 14.3 % (18.3-44.2); Mean Corpuscular HGB Conc 32.3 g/dl (32-36); Mean Corpuscular Hemoglobin 31.3 pg (26-34); Mean Corpuscular Volume 96.7 fl (80-100); Mean Platelet Volume 9.4 fl (7.4-10.4); Monocytes Absolute Auto 1.1 K/mm3 (0.1-0.6); Monocytes Percent Auto 7.6 % (2.6-8.5); Neutrophils Absolute Auto 10.8 K/mm3 (1.3-6.7); Neutrophils Percent Auto 77.4 % (45.5-73.1); Platelet Count Result 218 k/mm3 (150-375); Red Blood Count 3.68 M/mm3 (4.2-5.4); Red Cell Distribution Width 12.8 % (11.5-14.5)
[2024-06-27 05:54] LABS: Alanine Aminotransferase 21 U/L (6-35); Albumin Level 3.5 g/dL (3.5-5.1); Alkaline Phosphatase 60 U/L (38-126); Anion Gap 6 mmol/L (4-12); Aspartate Amino Transferase 26 U/L (14-36); Bilirubin,Total 1.1 mg/dL (0.2-1.3); Blood Urea Nitrogen 11 mg/dL (7-17); Calcium 8.4 mg/dL (8.4-10.2); Carbon Dioxide 25 mmol/L (22-30); Chloride 106 mmol/L (98-107); Estimated CRCL calculation 48 ml/min; Estimated Glomerular Filt Rate 59; Glucose 100 mg/dL (65-110); Potassium 3.7 mmol/L (3.4-5.0); Sodium 137 mmol/L (137-145)
--- NOTE | 2024-06-27 08:10 | P.PNIM_ITS ---
Progress Note: A&P Assessment and Plan (1) Diverticulitis of colon with perforation: Code(s): K57.20 - Diverticulitis of large intestine with perforation and abscess without bleeding Status: Acute Assessment and Plan: patient was found to have diverticulitis with micro perforation CT abdomen general surgery following 06/27: Responding to IV ABX WBC trending down tolerating clear liquid diet blood cultures still with NGTD, advancing diet to low-fat. patient did have reports vaginal pain UA pending but ordered currently on IV Rocephin for coverage * Serial CBC/CMP and ABD exams * pain control with Dilaudid * Antiemetics * PPI (2) Tachycardia: Code(s): R00.0 - Tachycardia, unspecified Status: Acute Assessment and Plan: * HR as high as 131 * Resumed patient's metoprolol * Cardiac monitoring 06/27 * Improving after resuming home metoprolol Plan Code Status: Full Code DVT prophylaxis: SCDs Stress ulcer prophylaxis: Protonix 40 daily PT/OT notes: Ambulatory Disposition: Patient continues admission to the medical unit for further evaluation and treatment diverticulitis with micro perforation will continue with IV antibiotic therapy surgery following advance diet to clear liquid. Patient is ambulatory plan will be to return home when medically stable. Time Spent With Patient Time with patient: 15 - 25 minutes Subjective Date/time seen: 06/27/24 08:10 Interval history: Interval history patient is a 69-year-old female who is admitted for further evaluation and treatment of diverticulitis with microperforation 06/27/2024: Patient with no new complaints, ABD mildly tender but tolerating liquid diet. patient did report vaginal pain and burning states it feels as though she has a urinary tract infection. Review of Systems Review of Systems: All systems reviewed & are unremarkable except as noted in HPI and below Exam Const: General: comfortable and no acute distress Other: Pleasant female looks stated age HENMT: Mouth: Yes moist mucous membranes Eyes: General: appearance normal, both eyes and all related structures Pupils: Equal, round and reactive pupils present Cardio: Rate: tachycardic Rhythm: regular rhythm GI: Auscultation: normal bowel sounds Skin: General skin exam: normal color and no rashes or lesions noted Wounds: no wounds Neuro: Cranial nerves: Yes Equal, round and reactive pupils present Speech: normal speech Sensory Exam: normal sensation Extrem: General: normal to inspection Psych: Mental Status: mental status grossly normal Objective Data Vital Signs Vital Signs: Vital Signs - 24 hr 06/26/24 12:00 06/26/24 13:33 06/26/24 13:36 Temperature Pulse Rate 120 H 112 H 114 H Respiratory Rate 18 Blood Pressure 124/68 Pulse Oximetry 93 06/26/24 14:00 06/26/24 16:00 06/26/24 20:00 Temperature 97.7 F Pulse Rate 98 99 80 Respiratory Rate 18 Blood Pressure 119/66 Pulse Oximetry 96 06/26/24 21:44 06/27/24 00:00 06/27/24 01:55 Temperature 97.3 F L 98.1 F Pulse Rate 101 H 106 H 99 Respiratory Rate 20 20 Blood Pressure 125/58 L 129/69 Pulse Oximetry 99 98 06/27/24 04:00 06/27/24 06:00 Temperature 98.6 F Pulse Rate 92 103 H Respiratory Rate 20 Blood Pressure 115/60 Pulse Oximetry 98 Intake/Output Intake/Output: Intake & Output 06/24/24 06/25/24 06/26/24 06/27/24 23:59 23:59 23:59 23:59 Intake Total 2890 500 Balance 2890 500 Meds/Results Medications: Active Medications Generic Name Dose Route Start Last Admin Trade Name Freq PRN Reason Stop Dose Admin Acetaminophen 650 mg 06/26/24 10:09 Acetaminophen 325 Mg Tablet PO Q4H PRN Mild Pain (1-3) or Fever Hydrocodone Bitart/Acetaminophen 1 tab 06/26/24 10:09 06/27/24 05:22 Hydrocodone/Acetaminophen (*Crx) 5-325 Mg Tablet PO 1 tab Q4H PRN Administration Moderate Pain (4-6) Alprazolam 0.25 mg 06/26/24 17:00 06/26/24 17:35 Alprazolam (*Crx) 0.25 Mg Tablet PO 0.25 mg BID RAJESH Administration Amitriptyline HCl 25 mg 06/26/24 21:00 06/26/24 21:07 Amitriptyline Hcl 25 Mg Tablet PO 25 mg QHS RAJESH Administration Hydromorphone HCl 1 mg 06/26/24 06:47 06/26/24 07:01 Hydromorphone Hcl Inj (*Crx) 1 Mg/Ml Syr IV PUSH 1 mg Q3H PRN Administration Pain Rated 7-10 Ceftriaxone Sodium 1 gm in 50 mls @ 100 mls/hr 06/26/24 12:00 06/26/24 13:24 Rocephin 1 Gm/Ns 50 Ml IVPB 100 mls/hr Q24H RAJESH Administration Metronidazole 500 mg in 100 mls @ 100 mls/hr 06/26/24 12:00 06/27/24 05:19 Flagyl 500 Mg/Iso Soln 100 Ml IVPB 100 mls/hr Q6H RAJESH Administration Metoprolol Tartrate 50 mg 06/26/24 21:00 06/26/24 21:07 Metoprolol Tartrate 50 Mg Tab PO 50 mg Q12HR RAJESH Administration Ondansetron HCl 4 mg 06/26/24 10:09 Ondansetron Inj 4 Mg/2 Ml Vial IV PUSH Q6H PRN Nausea And Vomiting Pantoprazole Sodium 40 mg 06/27/24 09:00 Pantoprazole Sodium Iv 40 Mg Vial IV PUSH QAM [facility] Radiology Results: ITS Impressions Abdomen/Pelvis CT 06/26/24 05:51 Impression: Sigmoid diverticulitis with evidence of perforation, with small amount of pneumoperitoneum present, as detailed above. No abscess evident. Labs Labs: Laboratory Results - last 24 hr 06/27/24 05:22 WBC 14.0 H RBC 3.68 L Hgb 11.5 L Hct 35.6 L MCV 96.7 MCH 31.3 MCHC 32.3 RDW 12.8 Plt Count 218 MPV 9.4 Immature Gran % (Auto) 0.4 Neut % (Auto) 77.4 H Lymph % (Auto) 14.3 L [place] % (Auto) 7.6 Eos % (Auto) 0.1 Baso % (Auto) 0.2 Lymph # (Auto) 2.00 [place] # (Auto) 1.1 H Eos # (Auto) 0.0 Baso # (Auto) 0.0 Abs Immat Gran (auto) 0.05 H Absolute Neuts (auto) 10.8 H Absolute Nucleated RBC 0.000 Nucleated RBC % 0.0 Sodium 137 Potassium 3.7 Chloride 106 Carbon Dioxide 25 Anion Gap 6 BUN 11 Creatinine 0.94 Estim Creat Clear Calc 48 Estimated GFR 59 Glucose 100 Calcium 8.4 Total Bilirubin 1.1 AST 26 ALT 21 Alkaline Phosphatase 60 Total Protein 7.0 Albumin 3.5 Quality VTE Prophylaxis VTE prophylaxis: mechanical ordered -Patient's previous records reviewed on admission -ER notes reviewed in detail on admission -discussed all findings and current treatment plan with patient/Family/POA -Consultations reviewed for recommendations -Patient's disposition for safe discharge discussed with field nurse case manager Dictation performed by [employer] direct speech recognition software, therefore online user experience strategist variants and typographical errors may occur. Hospitalist MIPS Advance Care Plan I have confirmed that the patient's Advanced Care Plan is present, code status is documented, or surrogate decision maker is listed in patient medical record.: Yes Medication Reconciliation I have utilized all available resources to obtain, update and review the patients current medications (includes all prescriptions, OTC, herbals, cannabis, and nutritional supplements).: Yes The patient is not eligible for med reconciliation; the patient is in a emergent medical situation where delaying treatment would jeopardize the patients health.: No
[2024-06-27] MEDS: METOPROLOL TARTRATE 50 MG TAB PO ×2 (10:16→19:44)
[2024-06-27] MEDS: PANTOPRAZOLE SODIUM IV 40 MG VIAL IV PUSH (10:16)
[2024-06-27] MEDS: ALPRAZolam (*CRX) 0.25 MG TABLET PO ×2 (10:17→17:38)
[2024-06-27 11:55] LABS: Add Urine Microscopic? NO; Appearance Urine Clear (Clear); Bilirubin Urine Negative (Negative); Blood Urine Negative (Negative); Color Urine Yellow (Yellow); Glucose Urine UA Negative (Negative); Ketones Urine Negative (Negative); Leukocyte Esterase Ur Negative LEU/UL (Negative); Nitrate Urine Negative (Negative); Protein Urine Negative (Negative); Specific Grav Ur 1.007 (1.001-1.035); Urobilinogen Urine 0.2 mg/dL (<2.0)
--- NOTE | 2024-06-27 13:47 | PM.PNGS ---
Progress Note: A&P Assessment and Plan (1) Diverticulitis of colon with perforation: Code(s): K57.20 - Diverticulitis of large intestine with perforation and abscess without bleeding Status: Acute Assessment and Plan: Abdominal pain and exam improved. Will advance diet as tolerated to low fiber. Continue IV antibiotics. Plan I have discussed the patient's case and plan of care with Dr. Quintero. Subjective Subjective Date/Time Seen: 06/27/24 13:47 Patient reports: feels better, pain is less, flatus, no bowel movement and afebrile Exam GI: Inspection: non-distended GI Palp: Yes Soft to palpation, Yes Tenderness to palpation present (GI) (mild lower abdominal tenderness more focally in suprapubic area), No Guarding due to palpation present (GI) and No Rebound tenderness present Auscultation: normal bowel sounds Objective Data Vital Signs Vital Signs: Vital Signs - 24 hr 06/26/24 14:00 06/26/24 16:00 06/26/24 20:00 Temperature 97.7 F Pulse Rate 98 99 80 Respiratory Rate 18 Blood Pressure 119/66 Pulse Oximetry 96 06/26/24 21:44 06/27/24 00:00 06/27/24 01:55 Temperature 97.3 F L 98.1 F Pulse Rate 101 H 106 H 99 Respiratory Rate 20 20 Blood Pressure 125/58 L 129/69 Pulse Oximetry 99 98 06/27/24 04:00 06/27/24 06:00 06/27/24 10:16 Temperature 98.6 F Pulse Rate 92 103 H 105 H Respiratory Rate 20 Blood Pressure 115/60 Pulse Oximetry 98 06/27/24 12:00 Temperature 97.9 F Pulse Rate 83 Respiratory Rate 18 Blood Pressure 126/62 Pulse Oximetry 97 Intake/Output Intake/Output: Intake & Output 06/24/24 06/25/24 06/26/24 06/27/24 23:59 23:59 23:59 23:59 Intake Total 2940 840 Balance 2940 840 Meds/Results Medications: Active Medications Generic Name Dose Route Start Last Admin Trade Name Freq PRN Reason Stop Dose Admin Acetaminophen 650 mg 06/26/24 10:09 Acetaminophen 325 Mg Tablet PO Q4H PRN Mild Pain (1-3) or Fever Hydrocodone Bitart/Acetaminophen 1 tab 06/26/24 10:09 06/27/24 05:22 Hydrocodone/Acetaminophen (*Crx) 5-325 Mg Tablet PO 1 tab Q4H PRN Administration Moderate Pain (4-6) Alprazolam 0.25 mg 06/26/24 17:00 06/27/24 10:17 Alprazolam (*Crx) 0.25 Mg Tablet PO 0.25 mg BID RAJESH Administration Amitriptyline HCl 25 mg 06/26/24 21:00 06/26/24 21:07 Amitriptyline Hcl 25 Mg Tablet PO 25 mg QHS RAJESH Administration Hydromorphone HCl 1 mg 06/26/24 06:47 06/26/24 07:01 Hydromorphone Hcl Inj (*Crx) 1 Mg/Ml Syr IV PUSH 1 mg Q3H PRN Administration Pain Rated 7-10 Ceftriaxone Sodium 1 gm in 50 mls @ 100 mls/hr 06/26/24 12:00 06/27/24 12:44 Rocephin 1 Gm/Ns 50 Ml IVPB 100 mls/hr Q24H RAJESH Administration Metronidazole 500 mg in 100 mls @ 100 mls/hr 06/26/24 12:00 06/27/24 12:45 Flagyl 500 Mg/Iso Soln 100 Ml IVPB 100 mls/hr Q6H RAJESH Administration Metoprolol Tartrate 50 mg 06/26/24 21:00 06/27/24 10:16 Metoprolol Tartrate 50 Mg Tab PO 50 mg Q12HR RAJESH Administration Ondansetron HCl 4 mg 06/26/24 10:09 Ondansetron Inj 4 Mg/2 Ml Vial IV PUSH Q6H PRN Nausea And Vomiting Pantoprazole Sodium 40 mg 06/27/24 09:00 06/27/24 10:16 Pantoprazole Sodium Iv 40 Mg Vial IV PUSH 40 mg QAM RAJESH Administration Radiology Results: ITS Impressions Abdomen/Pelvis CT 06/26/24 05:51 Impression: Sigmoid diverticulitis with evidence of perforation, with small amount of pneumoperitoneum present, as detailed above. No abscess evident. Labs Labs: Laboratory Results - last 24 hr 06/27/24 06/27/24 05:22 11:42 WBC 14.0 H RBC 3.68 L Hgb 11.5 L Hct 35.6 L MCV 96.7 MCH 31.3 MCHC 32.3 RDW 12.8 Plt Count 218 MPV 9.4 Immature Gran % (Auto) 0.4 Neut % (Auto) 77.4 H Lymph % (Auto) 14.3 L [place] % (Auto) 7.6 Eos % (Auto) 0.1 Baso % (Auto) 0.2 Lymph # (Auto) 2.00 [place] # (Auto) 1.1 H Eos # (Auto) 0.0 Baso # (Auto) 0.0 Abs Immat Gran (auto) 0.05 H Absolute Neuts (auto) 10.8 H Absolute Nucleated RBC 0.000 Nucleated RBC % 0.0 Sodium 137 Potassium 3.7 Chloride 106 Carbon Dioxide 25 Anion Gap 6 BUN 11 Creatinine 0.94 Estim Creat Clear Calc 48 Estimated GFR 59 Glucose 100 Calcium 8.4 Total Bilirubin 1.1 AST 26 ALT 21 Alkaline Phosphatase 60 Total Protein 7.0 Albumin 3.5 Urine Color Yellow Urine Appearance Clear Urine pH 6.0 Ur Specific [place] 1.007 Urine Protein Negative Urine Glucose (UA) Negative Urine Ketones Negative Ur Blood (Man) Negative Urine Nitrate Negative Urine Bilirubin Negative Urine Urobilinogen 0.2 Leukocyte Esterase Rfl Negative
[2024-06-27] MEDS: AMITRIPTYLINE HCL 25 MG TABLET PO (19:44)
[2024-06-28] VITALS (10 sets, daily range): BP systolic 126–155; BP diastolic 56–79; PULSE 78–95; RESP 18–20; TEMP 36.1–36.9; O2SAT 96–100
[2024-06-28] MEDS: metroNIDAZOLE 500 MG/ISO 100ML 500 MG/100 ML BAG 100 MG IVPB ×4 (01:09→17:26)
[2024-06-28 05:34] LABS: Basophils Percent Auto 0.3 % (0.2-1.2); Eosinophils Absolute Auto 0.1 K/mm3 (0-0.3); Hematocrit 36.7 % (37.0-47.0); Hemoglobin 11.8 g/dL (12.0-15.0); Immature Granulocyte Absolute 0.07 K/mm3 (0.00-0.031); Immature Granulocyte Percent A 0.6 % (0-0.5); Lymphocytes Absolute Auto 2.29 K/mm3 (0.9-3.2); Lymphocytes Percent Auto 18.8 % (18.3-44.2); Mean Corpuscular HGB Conc 32.2 g/dl (32-36); Mean Corpuscular Hemoglobin 30.9 pg (26-34); Mean Corpuscular Volume 96.1 fl (80-100); Mean Platelet Volume 9.3 fl (7.4-10.4); Monocytes Absolute Auto 0.9 K/mm3 (0.1-0.6); Monocytes Percent Auto 7.5 % (2.6-8.5); Neutrophils Absolute Auto 8.8 K/mm3 (1.3-6.7); Neutrophils Percent Auto 71.8 % (45.5-73.1); Platelet Count Result 214 k/mm3 (150-375); Red Blood Count 3.82 M/mm3 (4.2-5.4); Red Cell Distribution Width 12.6 % (11.5-14.5); White Blood Count 12.2 K/mm3 (4.5-10.0)
[2024-06-28 05:43] LABS: Alanine Aminotransferase 18 U/L (6-35); Albumin Level 3.4 g/dL (3.5-5.1); Alkaline Phosphatase 64 U/L (38-126); Anion Gap 5 mmol/L (4-12); Aspartate Amino Transferase 23 U/L (14-36); Bilirubin,Total 0.8 mg/dL (0.2-1.3); Blood Urea Nitrogen 12 mg/dL (7-17); Calcium 8.5 mg/dL (8.4-10.2); Carbon Dioxide 26 mmol/L (22-30); Chloride 106 mmol/L (98-107); Estimated CRCL calculation 52 ml/min; Estimated Glomerular Filt Rate > 60; Glucose 101 mg/dL (65-110); Potassium 3.8 mmol/L (3.4-5.0); Sodium 137 mmol/L (137-145)
[2024-06-28] MEDS: HYDROcodone/acetaminophen (*CRX) 5-325 MG TABLET 1 TAB PO ×2 (06:22→17:29)
[2024-06-28] MEDS: METOPROLOL TARTRATE 50 MG TAB PO ×2 (08:17→20:17)
[2024-06-28] MEDS: PANTOPRAZOLE SODIUM IV 40 MG VIAL IV PUSH (08:17)
[2024-06-28] MEDS: ALPRAZolam (*CRX) 0.25 MG TABLET PO ×2 (08:17→17:26)
--- NOTE | 2024-06-28 12:18 | P.PNIM_ITS ---
Progress Note: A&P Assessment and Plan (1) Diverticulitis of colon with perforation: Code(s): K57.20 - Diverticulitis of large intestine with perforation and abscess without bleeding Status: Acute Assessment and Plan: patient was found to have diverticulitis with micro perforation CT abdomen general surgery following Tolerating diet Continue IV Rocephin and Flagyl * Serial CBC/CMP and ABD exams * pain control as needed * Antiemetics * PPI * Surgery team on board (2) Tachycardia: Code(s): R00.0 - Tachycardia, unspecified Status: Acute Assessment and Plan: * HR as high as 131 * Resumed patient's metoprolol * Cardiac monitoring 06/28 * Improved after resuming home metoprolol Plan Code Status: Full Code DVT prophylaxis: SCDs Stress ulcer prophylaxis: Protonix 40 daily PT/OT notes: Ambulatory Disposition: Patient continues admission to the medical unit for further evaluation and treatment diverticulitis with micro perforation will continue with IV antibiotic therapy Subjective Date/time seen: 06/28/24 12:18 Interval history: Interval history patient is a 69-year-old female who is admitted for further evaluation and treatment of diverticulitis with microperforation 06/27/2024: Patient with no new complaints, ABD mildly tender but tolerating liquid diet. patient did report vaginal pain and burning states it feels as though she has a urinary tract infection. 06/28/24 Patient was seen examined dissipated she is feeling better. Abdominal pain improving. Tolerating diet. Reviewed surgery team recommendation. Leukocytosis improving. Review of Systems Review of Systems: All systems reviewed & are unremarkable except as noted in HPI and below Exam Const: General: comfortable and no acute distress Other: Pleasant female looks stated age HENMT: Mouth: Yes moist mucous membranes Eyes: General: appearance normal, both eyes and all related structures Pupils: Equal, round and reactive pupils present Cardio: Rate: regular rate Rhythm: regular rhythm GI: Auscultation: normal bowel sounds Skin: General skin exam: normal color and no rashes or lesions noted Wounds: no wounds Neuro: Cranial nerves: Yes Equal, round and reactive pupils present Speech: normal speech Sensory Exam: normal sensation Extrem: General: normal to inspection Psych: Mental Status: mental status grossly normal Objective Data Vital Signs Vital Signs: Vital Signs - 24 hr 06/27/24 14:01 06/27/24 16:00 06/27/24 20:00 Temperature 96.6 F L Pulse Rate 91 91 Respiratory Rate 18 Blood Pressure 134/53 L Pulse Oximetry 98 Oxygen Delivery Room Air Fraction of Inspired Oxygen 06/27/24 20:00 06/27/24 21:07 06/27/24 22:40 Temperature 97.9 F Pulse Rate 103 H 99 Respiratory Rate 20 Blood Pressure 122/59 L Pulse Oximetry 97 98 Oxygen Delivery Room Air Fraction of Inspired Oxygen 21 06/28/24 00:00 06/28/24 00:45 06/28/24 04:00 Temperature 97.0 F L Pulse Rate 78 87 89 Respiratory Rate 18 Blood Pressure 147/75 H Pulse Oximetry 96 Oxygen Delivery Fraction of Inspired Oxygen 06/28/24 06:00 06/28/24 08:00 06/28/24 08:05 Temperature 97.0 F L 98.2 F Pulse Rate 91 82 91 Respiratory Rate 20 20 Blood Pressure 126/56 L 128/72 Pulse Oximetry 98 98 Oxygen Delivery Fraction of Inspired Oxygen 06/28/24 08:15 06/28/24 08:17 Temperature Pulse Rate 92 Respiratory Rate Blood Pressure Pulse Oximetry Oxygen Delivery Room Air Fraction of Inspired Oxygen Intake/Output Intake/Output: Intake & Output 06/25/24 06/26/24 06/27/24 06/28/24 23:59 23:59 23:59 23:59 Intake Total 2940 1110 837 Output Total 1400 Balance 2940 1110 -563 Meds/Results Medications: Active Medications Generic Name Dose Route Start Last Admin Trade Name Freq PRN Reason Stop Dose Admin Acetaminophen 650 mg 06/26/24 10:09 Acetaminophen 325 Mg Tablet PO Q4H PRN Mild Pain (1-3) or Fever Hydrocodone Bitart/Acetaminophen 1 tab 06/26/24 10:09 06/28/24 06:22 Hydrocodone/Acetaminophen (*Crx) 5-325 Mg Tablet PO 1 tab Q4H PRN Administration Moderate Pain (4-6) Alprazolam 0.25 mg 06/26/24 17:00 06/28/24 08:17 Alprazolam (*Crx) 0.25 Mg Tablet PO 0.25 mg BID RAJESH Administration Amitriptyline HCl 25 mg 06/26/24 21:00 06/27/24 19:44 Amitriptyline Hcl 25 Mg Tablet PO 25 mg QHS RAJESH Administration Hydromorphone HCl 1 mg 06/26/24 06:47 06/26/24 07:01 Hydromorphone Hcl Inj (*Crx) 1 Mg/Ml Syr IV PUSH 1 mg Q3H PRN Administration Pain Rated 7-10 Ceftriaxone Sodium 1 gm in 50 mls @ 100 mls/hr 06/26/24 12:00 06/28/24 12:06 Rocephin 1 Gm/Ns 50 Ml IVPB 100 mls/hr Q24H RAJESH Administration Metronidazole 500 mg in 100 mls @ 100 mls/hr 06/26/24 12:00 06/28/24 12:06 Flagyl 500 Mg/Iso Soln 100 Ml IVPB 100 mls/hr Q6H RAJESH Administration Metoprolol Tartrate 50 mg 06/26/24 21:00 06/28/24 08:17 Metoprolol Tartrate 50 Mg Tab PO 50 mg Q12HR RAJESH Administration Ondansetron HCl 4 mg 06/26/24 10:09 Ondansetron Inj 4 Mg/2 Ml Vial IV PUSH Q6H PRN Nausea And Vomiting Pantoprazole Sodium 40 mg 06/27/24 09:00 06/28/24 08:17 Pantoprazole Sodium Iv 40 Mg Vial IV PUSH 40 mg QAM RAJESH Administration Radiology Results: ITS Impressions Abdomen/Pelvis CT 06/26/24 05:51 Impression: Sigmoid diverticulitis with evidence of perforation, with small amount of pneumoperitoneum present, as detailed above. No abscess evident. Labs Labs: Laboratory Results - last 24 hr 06/28/24 05:27 WBC 12.2 H RBC 3.82 L Hgb 11.8 L Hct 36.7 L MCV 96.1 MCH 30.9 MCHC 32.2 RDW 12.6 Plt Count 214 MPV 9.3 Immature Gran % (Auto) 0.6 H Neut % (Auto) 71.8 Lymph % (Auto) 18.8 [place] % (Auto) 7.5 Eos % (Auto) 1.0 Baso % (Auto) 0.3 Lymph # (Auto) 2.29 [place] # (Auto) 0.9 H Eos # (Auto) 0.1 Baso # (Auto) 0.0 Abs Immat Gran (auto) 0.07 H Absolute Neuts (auto) 8.8 H Absolute Nucleated RBC 0.000 Nucleated RBC % 0.0 Sodium 137 Potassium 3.8 Chloride 106 Carbon Dioxide 26 Anion Gap 5 BUN 12 Creatinine 0.86 Estim Creat Clear Calc 52 Estimated GFR > 60 Glucose 101 Calcium 8.5 Total Bilirubin 0.8 AST 23 ALT 18 Alkaline Phosphatase 64 Total Protein 7.0 Albumin 3.4 L Quality VTE Prophylaxis VTE prophylaxis: mechanical ordered
--- NOTE | 2024-06-28 12:47 | PM.PNGS ---
Progress Note: A&P Assessment and Plan (1) Diverticulitis of colon with perforation: Code(s): K57.20 - Diverticulitis of large intestine with perforation and abscess without bleeding Status: Acute Assessment and Plan: exam largely benign, cont IV abx, low fiber diet, leukocytosis improved, home soon Subjective Subjective Date/Time Seen: 06/28/24 12:47 Interval history: still c/o RLQ abd pain, pressure when needing to void, ania low fiber diet Review of Systems Review of Systems: All systems reviewed & are unremarkable except as noted in HPI and below Exam Const: General: cooperative, comfortable and no acute distress Resp: Auscultation: clear to auscultation bilaterally Cardio: Rate: regular rate Rhythm: regular rhythm GI: GI Palp: Yes abdominal tenderness, Yes Soft to palpation, Yes Tenderness to palpation present (GI), No Guarding due to palpation present (GI) and No Rigid due to palpation Objective Data Vital Signs Vital Signs: Vital Signs - 24 hr 06/27/24 14:01 06/27/24 16:00 06/27/24 20:00 Temperature 35.9 C L Pulse Rate 91 91 Respiratory Rate 18 Blood Pressure 134/53 L Pulse Oximetry 98 Oxygen Delivery Room Air Fraction of Inspired Oxygen 06/27/24 20:00 06/27/24 21:07 06/27/24 22:40 Temperature 36.6 C Pulse Rate 103 H 99 Respiratory Rate 20 Blood Pressure 122/59 L Pulse Oximetry 97 98 Oxygen Delivery Room Air Fraction of Inspired Oxygen 21 06/28/24 00:00 06/28/24 00:45 06/28/24 04:00 Temperature 36.1 C L Pulse Rate 78 87 89 Respiratory Rate 18 Blood Pressure 147/75 H Pulse Oximetry 96 Oxygen Delivery Fraction of Inspired Oxygen 06/28/24 06:00 06/28/24 08:00 06/28/24 08:05 Temperature 36.1 C L 36.8 C Pulse Rate 91 82 91 Respiratory Rate 20 20 Blood Pressure 126/56 L 128/72 Pulse Oximetry 98 98 Oxygen Delivery Fraction of Inspired Oxygen 06/28/24 08:15 06/28/24 08:17 Temperature Pulse Rate 92 Respiratory Rate Blood Pressure Pulse Oximetry Oxygen Delivery Room Air Fraction of Inspired Oxygen Intake/Output Intake/Output: Intake & Output 06/25/24 06/26/24 06/27/24 06/28/24 23:59 23:59 23:59 23:59 Intake Total 2940 1110 837 Output Total 1400 Balance 2940 1110 563 Meds/Results Medications: Active Medications Generic Name Dose Route Start Last Admin Trade Name Freq PRN Reason Stop Dose Admin Acetaminophen 650 mg 06/26/24 10:09 Acetaminophen 325 Mg Tablet PO Q4H PRN Mild Pain (1-3) or Fever Hydrocodone Bitart/Acetaminophen 1 tab 06/26/24 10:09 06/28/24 06:22 Hydrocodone/Acetaminophen (*Crx) 5-325 Mg Tablet PO 1 tab Q4H PRN Administration Moderate Pain (4-6) Alprazolam 0.25 mg 06/26/24 17:00 06/28/24 08:17 Alprazolam (*Crx) 0.25 Mg Tablet PO 0.25 mg BID RAJESH Administration Amitriptyline HCl 25 mg 06/26/24 21:00 06/27/24 19:44 Amitriptyline Hcl 25 Mg Tablet PO 25 mg QHS RAJESH Administration Hydromorphone HCl 1 mg 06/26/24 06:47 06/26/24 07:01 Hydromorphone Hcl Inj (*Crx) 1 Mg/Ml Syr IV PUSH 1 mg Q3H PRN Administration Pain Rated 7-10 Ceftriaxone Sodium 1 gm in 50 mls @ 100 mls/hr 06/26/24 12:00 06/28/24 12:06 Rocephin 1 Gm/Ns 50 Ml IVPB 100 mls/hr Q24H RAJESH Administration Metronidazole 500 mg in 100 mls @ 100 mls/hr 06/26/24 12:00 06/28/24 12:06 Flagyl 500 Mg/Iso Soln 100 Ml IVPB 100 mls/hr Q6H RAJESH Administration Metoprolol Tartrate 50 mg 06/26/24 21:00 06/28/24 08:17 Metoprolol Tartrate 50 Mg Tab PO 50 mg Q12HR RAJESH Administration Ondansetron HCl 4 mg 06/26/24 10:09 Ondansetron Inj 4 Mg/2 Ml Vial IV PUSH Q6H PRN Nausea And Vomiting Pantoprazole Sodium 40 mg 06/27/24 09:00 06/28/24 08:17 Pantoprazole Sodium Iv 40 Mg Vial IV PUSH 40 mg QAM RAJESH Administration Radiology Results: ITS Impressions Abdomen/Pelvis CT 06/26/24 05:51 Impression: Sigmoid diverticulitis with evidence of perforation, with small amount of pneumoperitoneum present, as detailed above. No abscess evident. Labs Labs: Laboratory Results - last 24 hr 06/28/24 05:27 WBC 12.2 H RBC 3.82 L Hgb 11.8 L Hct 36.7 L MCV 96.1 MCH 30.9 MCHC 32.2 RDW 12.6 Plt Count 214 MPV 9.3 Immature Gran % (Auto) 0.6 H Neut % (Auto) 71.8 Lymph % (Auto) 18.8 [place] % (Auto) 7.5 Eos % (Auto) 1.0 Baso % (Auto) 0.3 Lymph # (Auto) 2.29 [place] # (Auto) 0.9 H Eos # (Auto) 0.1 Baso # (Auto) 0.0 Abs Immat Gran (auto) 0.07 H Absolute Neuts (auto) 8.8 H Absolute Nucleated RBC 0.000 Nucleated RBC % 0.0 Sodium 137 Potassium 3.8 Chloride 106 Carbon Dioxide 26 Anion Gap 5 BUN 12 Creatinine 0.86 Estim Creat Clear Calc 52 Estimated GFR > 60 Glucose 101 Calcium 8.5 Total Bilirubin 0.8 AST 23 ALT 18 Alkaline Phosphatase 64 Total Protein 7.0 Albumin 3.4 L
[2024-06-28] MEDS: ONDANSETRON INJ 4 MG/2 ML VIAL IV PUSH (20:16)
[2024-06-28] MEDS: HYDROmorphone HCL INJ (*CRX) 1 MG/ML SYR IV PUSH (20:16)
[2024-06-28] MEDS: AMITRIPTYLINE HCL 25 MG TABLET PO (20:17)
[2024-06-29] VITALS (7 sets, daily range): BP systolic 129–154; BP diastolic 69–83; PULSE 73–99; RESP 16–20; TEMP 36.1–36.8; O2SAT 97–99
[2024-06-29] MEDS: HYDROcodone/acetaminophen (*CRX) 5-325 MG TABLET 1 TAB PO ×4 (00:50→15:51)
[2024-06-29] MEDS: metroNIDAZOLE 500 MG/ISO 100ML 500 MG/100 ML BAG 100 MG IVPB ×4 (00:50→17:41)
[2024-06-29 05:31] LABS: Basophils Percent Auto 0.4 % (0.2-1.2); Eosinophils Absolute Auto 0.2 K/mm3 (0-0.3); Eosinophils Percent Auto 1.8 % (0-4.4); Hematocrit 35.9 % (37.0-47.0); Hemoglobin 11.9 g/dL (12.0-15.0); Immature Granulocyte Absolute 0.03 K/mm3 (0.00-0.031); Immature Granulocyte Percent A 0.3 % (0-0.5); Lymphocytes Absolute Auto 1.74 K/mm3 (0.9-3.2); Lymphocytes Percent Auto 16.2 % (18.3-44.2); Mean Corpuscular HGB Conc 33.1 g/dl (32-36); Mean Corpuscular Hemoglobin 31.5 pg (26-34); Mean Platelet Volume 9.2 fl (7.4-10.4); Monocytes Absolute Auto 0.9 K/mm3 (0.1-0.6); Monocytes Percent Auto 8.1 % (2.6-8.5); Neutrophils Absolute Auto 7.9 K/mm3 (1.3-6.7); Neutrophils Percent Auto 73.2 % (45.5-73.1); Platelet Count Result 254 k/mm3 (150-375); Red Blood Count 3.78 M/mm3 (4.2-5.4); Red Cell Distribution Width 12.6 % (11.5-14.5); White Blood Count 10.8 K/mm3 (4.5-10.0)
[2024-06-29 05:44] LABS: Alanine Aminotransferase 16 U/L (6-35); Albumin Level 3.5 g/dL (3.5-5.1); Alkaline Phosphatase 66 U/L (38-126); Anion Gap 9 mmol/L (4-12); Aspartate Amino Transferase 22 U/L (14-36); Bilirubin,Total 0.5 mg/dL (0.2-1.3); Blood Urea Nitrogen 12 mg/dL (7-17); Calcium 8.3 mg/dL (8.4-10.2); Carbon Dioxide 25 mmol/L (22-30); Chloride 105 mmol/L (98-107); Estimated CRCL calculation 56 ml/min; Estimated Glomerular Filt Rate > 60; Glucose 109 mg/dL (65-110); Potassium 3.6 mmol/L (3.4-5.0); Sodium 139 mmol/L (137-145)
[2024-06-29] MEDS: PANTOPRAZOLE SODIUM IV 40 MG VIAL IV PUSH (08:54)
[2024-06-29] MEDS: ALPRAZolam (*CRX) 0.25 MG TABLET PO ×2 (08:54→17:42)
[2024-06-29] MEDS: METOPROLOL TARTRATE 50 MG TAB PO ×2 (08:54→22:20)
--- NOTE | 2024-06-29 09:48 | PM.PNGS ---
Progress Note: A&P Assessment and Plan (1) Diverticulitis of colon with perforation: Code(s): K57.20 - Diverticulitis of large intestine with perforation and abscess without bleeding Status: Acute Assessment and Plan: Increased RLQ pain overnight with repeat CT scan showing a now 5.6 cm abscess in the right hemipelvis. Will order percutaneous drainage in IR and keep her NPO for now. Continue IV antibiotics Plan I have discussed the patient's case and plan of care with Dr. Quintero. Subjective Subjective Date/Time Seen: 06/29/24 09:48 Patient reports: still having pain and afebrile Interval history: Patient had acute onset of pain while sitting up in the chair looking at her phone last night. She reports the pain shot into her right lower quadrant. The pain was intense, similar to the pain she experienced prior to coming into the ED. No nausea or vomiting. She has been tolerating her diet. Hospitalist ordered a stat CT scan of the abdomen and pelvis overnight and made her NPO. CT scan reviewed this morning. Exam Const: General: comfortable and no acute distress GI: Inspection: non-distended GI Palp: Yes Soft to palpation, Yes Tenderness to palpation present (GI) (Moderate tenderness in the right lower quadrant and suprapubic area), Yes Guarding due to palpation present (GI) (Suprapubic) and No Rebound tenderness present Auscultation: normal bowel sounds Objective Data Vital Signs Vital Signs: Vital Signs - 24 hr 06/28/24 12:00 06/28/24 20:00 06/28/24 20:00 Temperature 98.4 F 98.1 F Pulse Rate 86 95 Respiratory Rate 19 18 Blood Pressure 126/70 155/79 H Pulse Oximetry 97 97 Oxygen Delivery Room Air 06/28/24 23:41 06/29/24 04:00 06/29/24 08:54 Temperature 98.2 F 98.2 F Pulse Rate 87 92 94 Respiratory Rate 18 18 Blood Pressure 141/66 H 129/71 Pulse Oximetry 100 97 Oxygen Delivery Intake/Output Intake/Output: Intake & Output 06/26/24 06/27/24 06/28/24 06/29/24 23:59 23:59 23:59 23:59 Intake Total 2940 1110 2551 100 Output Total 1400 Balance 2940 1110 1151 100 Meds/Results Medications: Active Medications Generic Name Dose Route Start Last Admin Trade Name Freq PRN Reason Stop Dose Admin Acetaminophen 650 mg 06/26/24 10:09 Acetaminophen 325 Mg Tablet PO Q4H PRN Mild Pain (1-3) or Fever Hydrocodone Bitart/Acetaminophen 1 tab 06/26/24 10:09 06/29/24 05:43 Hydrocodone/Acetaminophen (*Crx) 5-325 Mg Tablet PO 1 tab Q4H PRN Administration Moderate Pain (4-6) Alprazolam 0.25 mg 06/26/24 17:00 06/29/24 08:54 Alprazolam (*Crx) 0.25 Mg Tablet PO 0.25 mg BID RAJESH Administration Amitriptyline HCl 25 mg 06/26/24 21:00 06/28/24 20:17 Amitriptyline Hcl 25 Mg Tablet PO 25 mg QHS RAJESH Administration Hydromorphone HCl 1 mg 06/26/24 06:47 06/28/24 20:16 Hydromorphone Hcl Inj (*Crx) 1 Mg/Ml Syr IV PUSH 1 mg Q3H PRN Administration Pain Rated 7-10 Ceftriaxone Sodium 1 gm in 50 mls @ 100 mls/hr 06/26/24 12:00 06/28/24 12:06 Rocephin 1 Gm/Ns 50 Ml IVPB 100 mls/hr Q24H RAJESH Administration Metronidazole 500 mg in 100 mls @ 100 mls/hr 06/26/24 12:00 06/29/24 05:43 Flagyl 500 Mg/Iso Soln 100 Ml IVPB 100 mls/hr Q6H RAJESH Administration Metoprolol Tartrate 50 mg 06/26/24 21:00 06/29/24 08:54 Metoprolol Tartrate 50 Mg Tab PO 50 mg Q12HR RAJESH Administration Ondansetron HCl 4 mg 06/26/24 10:09 06/28/24 20:16 Ondansetron Inj 4 Mg/2 Ml Vial IV PUSH 4 mg Q6H PRN Administration Nausea And Vomiting Pantoprazole Sodium 40 mg 06/27/24 09:00 06/29/24 08:54 Pantoprazole Sodium Iv 40 Mg Vial IV PUSH 40 mg QAM RAJESH Administration Radiology Results: ITS Impressions Abdomen/Pelvis CT 06/28/24 23:17 IMPRESSION: Redemonstration of sigmoid diverticulitis now with a 5.6 cm collection of fluid and air in the right hemipelvis, for which an abscess is suspected. Labs Labs: Laboratory Results - last 24 hr 06/29/24 05:25 WBC 10.8 H RBC 3.78 L Hgb 11.9 L Hct 35.9 L MCV 95.0 MCH 31.5 MCHC 33.1 RDW 12.6 Plt Count 254 MPV 9.2 Immature Gran % (Auto) 0.3 Neut % (Auto) 73.2 H Lymph % (Auto) 16.2 L [place] % (Auto) 8.1 Eos % (Auto) 1.8 Baso % (Auto) 0.4 Lymph # (Auto) 1.74 [place] # (Auto) 0.9 H Eos # (Auto) 0.2 Baso # (Auto) 0.0 Abs Immat Gran (auto) 0.03 Absolute Neuts (auto) 7.9 H Absolute Nucleated RBC 0.000 Nucleated RBC % 0.0 Sodium 139 Potassium 3.6 Chloride 105 Carbon Dioxide 25 Anion Gap 9 BUN 12 Creatinine 0.80 Estim Creat Clear Calc 56 Estimated GFR > 60 Glucose 109 Calcium 8.3 L Total Bilirubin 0.5 AST 22 ALT 16 Alkaline Phosphatase 66 Total Protein 7.0 Albumin 3.5
[2024-06-29 10:22] LABS: INR 1.1; Prothrombin Time 14.9 Seconds (11.1-14.7)
[2024-06-29 10:23] LABS: Partial Thromboplastin Time 27.3 Seconds (22.3-36.8)
--- NOTE | 2024-06-29 12:33 | P.PNIM_ITS ---
Progress Note: A&P Assessment and Plan (1) Diverticulitis of colon with perforation: Code(s): K57.20 - Diverticulitis of large intestine with perforation and abscess without bleeding Status: Acute Assessment and Plan: patient was found to have diverticulitis with micro perforation CT abdomen general surgery following Tolerating diet Continue IV Rocephin and Flagyl * Serial CBC/CMP and ABD exams * pain control as needed * Antiemetics * PPI * Surgery team on board * Repeat CT showed possible abscess. IR unable to drain actual cavity is measuring more around 2.5 x 1.5 x 2.0 cm with mostly air and very little fluid that would be drained * monitor for now (2) Tachycardia: Code(s): R00.0 - Tachycardia, unspecified Status: Acute Assessment and Plan: * HR as high as 131 * Resumed patient's metoprolol * Cardiac monitoring 06/28 * Improved after resuming home metoprolol Plan Code Status: Full Code DVT prophylaxis: SCDs Stress ulcer prophylaxis: Protonix 40 daily PT/OT notes: Ambulatory Disposition: Patient continues admission to the medical unit for further evaluation and treatment diverticulitis with micro perforation will continue with IV antibiotic therapy Subjective Date/time seen: 06/29/24 12:33 Interval history: Interval history patient is a 69-year-old female who is admitted for further evaluation and treatment of diverticulitis with microperforation 06/27/2024: Patient with no new complaints, ABD mildly tender but tolerating liquid diet. patient did report vaginal pain and burning states it feels as though she has a urinary tract infection. 06/28/24 Patient was seen examined dissipated she is feeling better. Abdominal pain improving. Tolerating diet. Reviewed surgery team recommendation. Leukocytosis improving. 06/29/24 Patient was seen and examined at bedside. She is feeling fine. She had severe abdominal pain last night. Repeat CT showed possible abscess. IR unable to drain actual cavity is measuring more around 2.5 x 1.5 x 2.0 cm with mostly air and very little fluid that would be drained Surgery team on board. Plan for monitor for now. Review of Systems Review of Systems: All systems reviewed & are unremarkable except as noted in HPI and below Exam Const: General: comfortable and no acute distress Other: Pleasant female looks stated age HENMT: Mouth: Yes moist mucous membranes Eyes: General: appearance normal, both eyes and all related structures Pupils: Equal, round and reactive pupils present Cardio: Rate: regular rate and tachycardic Rhythm: regular rhythm GI: Auscultation: normal bowel sounds Skin: General skin exam: normal color and no rashes or lesions noted Wounds: no wounds Neuro: Cranial nerves: Yes Equal, round and reactive pupils present Speech: normal speech Sensory Exam: normal sensation Extrem: General: normal to inspection Psych: Mental Status: mental status grossly normal Objective Data Vital Signs Vital Signs: Vital Signs - 24 hr 06/28/24 20:00 06/28/24 20:00 06/28/24 23:41 Temperature 98.1 F 98.2 F Pulse Rate 95 87 Respiratory Rate 18 18 Blood Pressure 155/79 H 141/66 H Pulse Oximetry 97 100 Oxygen Delivery Room Air 06/29/24 04:00 06/29/24 08:53 06/29/24 08:54 Temperature 98.2 F Pulse Rate 92 94 Respiratory Rate 18 Blood Pressure 129/71 Pulse Oximetry 97 Oxygen Delivery Room Air 06/29/24 09:56 Temperature 97.1 F L Pulse Rate 87 Respiratory Rate 16 Blood Pressure 147/76 H Pulse Oximetry 98 Oxygen Delivery Intake/Output Intake/Output: Intake & Output 06/26/24 06/27/24 06/28/24 06/29/24 23:59 23:59 23:59 23:59 Intake Total 2940 1110 2601 200 Output Total 1400 Balance 2940 1110 1201 200 Meds/Results Medications: Active Medications Generic Name Dose Route Start Last Admin Trade Name Freq PRN Reason Stop Dose Admin Acetaminophen 650 mg 06/26/24 10:09 Acetaminophen 325 Mg Tablet PO Q4H PRN Mild Pain (1-3) or Fever Hydrocodone Bitart/Acetaminophen 1 tab 06/26/24 10:09 06/29/24 10:17 Hydrocodone/Acetaminophen (*Crx) 5-325 Mg Tablet PO 1 tab Q4H PRN Administration Moderate Pain (4-6) Alprazolam 0.25 mg 06/26/24 17:00 06/29/24 08:54 Alprazolam (*Crx) 0.25 Mg Tablet PO 0.25 mg BID RAJESH Administration Amitriptyline HCl 25 mg 06/26/24 21:00 06/28/24 20:17 Amitriptyline Hcl 25 Mg Tablet PO 25 mg QHS RAJESH Administration Hydromorphone HCl 1 mg 06/26/24 06:47 06/28/24 20:16 Hydromorphone Hcl Inj (*Crx) 1 Mg/Ml Syr IV PUSH 1 mg Q3H PRN Administration Pain Rated 7-10 Ceftriaxone Sodium 1 gm in 50 mls @ 100 mls/hr 06/26/24 12:00 06/29/24 11:58 Rocephin 1 Gm/Ns 50 Ml IVPB 100 mls/hr Q24H RAJESH Administration Metronidazole 500 mg in 100 mls @ 100 mls/hr 06/26/24 12:00 06/29/24 11:59 Flagyl 500 Mg/Iso Soln 100 Ml IVPB 100 mls/hr Q6H RAJESH Administration Metoprolol Tartrate 50 mg 06/26/24 21:00 06/29/24 08:54 Metoprolol Tartrate 50 Mg Tab PO 50 mg Q12HR RAJESH Administration Ondansetron HCl 4 mg 06/26/24 10:09 06/28/24 20:16 Ondansetron Inj 4 Mg/2 Ml Vial IV PUSH 4 mg Q6H PRN Administration Nausea And Vomiting Pantoprazole Sodium 40 mg 06/27/24 09:00 06/29/24 08:54 Pantoprazole Sodium Iv 40 Mg Vial IV PUSH 40 mg QAM RAJESH Administration Radiology Results: ITS Impressions Abdomen/Pelvis CT 06/28/24 23:17 IMPRESSION: Redemonstration of sigmoid diverticulitis now with a 5.6 cm collection of fluid and air in the right hemipelvis, for which an abscess is suspected. Labs Labs: Laboratory Results - last 24 hr 06/29/24 06/29/24 05:25 10:03 WBC 10.8 H RBC 3.78 L Hgb 11.9 L Hct 35.9 L MCV 95.0 MCH 31.5 MCHC 33.1 RDW 12.6 Plt Count 254 MPV 9.2 Immature Gran % (Auto) 0.3 Neut % (Auto) 73.2 H Lymph % (Auto) 16.2 L [place] % (Auto) 8.1 Eos % (Auto) 1.8 Baso % (Auto) 0.4 Lymph # (Auto) 1.74 [place] # (Auto) 0.9 H Eos # (Auto) 0.2 Baso # (Auto) 0.0 Abs Immat Gran (auto) 0.03 Absolute Neuts (auto) 7.9 H Absolute Nucleated RBC 0.000 Nucleated RBC % 0.0 PT 14.9 H INR 1.1 APTT 27.3 Sodium 139 Potassium 3.6 Chloride 105 Carbon Dioxide 25 Anion Gap 9 BUN 12 Creatinine 0.80 Estim Creat Clear Calc 56 Estimated GFR > 60 Glucose 109 Calcium 8.3 L Total Bilirubin 0.5 AST 22 ALT 16 Alkaline Phosphatase 66 Total Protein 7.0 Albumin 3.5 Quality VTE Prophylaxis VTE prophylaxis: mechanical ordered
--- NOTE | 2024-06-29 18:40 | PC.NURSE ---
On 06/29/24, the student, Guerline Thompson, provided care and completed [facility] documentation on this patient. I have reviewed the student's documentation and agree with the findings.
[2024-06-29] MEDS: AMITRIPTYLINE HCL 25 MG TABLET PO (22:21)
[2024-06-30] MEDS: metroNIDAZOLE 500 MG/ISO 100ML 500 MG/100 ML BAG 100 MG IVPB ×2 (00:35→05:19)
[2024-06-30] MEDS: HYDROcodone/acetaminophen (*CRX) 5-325 MG TABLET 1 TAB PO (00:38)
[2024-06-30 05:37] VITALS: BP 136/80; PULSE 81; RESP 18; TEMP 36.4; O2SAT 100
[2024-06-30 05:38] LABS: Basophils Percent Auto 0.4 % (0.2-1.2); Eosinophils Absolute Auto 0.1 K/mm3 (0-0.3); Eosinophils Percent Auto 1.5 % (0-4.4); Hematocrit 36.4 % (37.0-47.0); Hemoglobin 11.6 g/dL (12.0-15.0); Immature Granulocyte Absolute 0.06 K/mm3 (0.00-0.031); Immature Granulocyte Percent A 0.6 % (0-0.5); Lymphocytes Absolute Auto 2.25 K/mm3 (0.9-3.2); Lymphocytes Percent Auto 23.5 % (18.3-44.2); Mean Corpuscular HGB Conc 31.9 g/dl (32-36); Mean Corpuscular Hemoglobin 30.9 pg (26-34); Mean Corpuscular Volume 96.8 fl (80-100); Mean Platelet Volume 9.4 fl (7.4-10.4); Monocytes Absolute Auto 0.9 K/mm3 (0.1-0.6); Monocytes Percent Auto 9.5 % (2.6-8.5); Neutrophils Absolute Auto 6.2 K/mm3 (1.3-6.7); Neutrophils Percent Auto 64.5 % (45.5-73.1); Platelet Count Result 272 k/mm3 (150-375); Red Blood Count 3.76 M/mm3 (4.2-5.4); Red Cell Distribution Width 12.3 % (11.5-14.5); White Blood Count 9.6 K/mm3 (4.5-10.0)
[2024-06-30 06:04] LABS: Alanine Aminotransferase 14 U/L (6-35); Albumin Level 3.3 g/dL (3.5-5.1); Alkaline Phosphatase 70 U/L (38-126); Anion Gap 8 mmol/L (4-12); Aspartate Amino Transferase 24 U/L (14-36); Bilirubin,Total 0.4 mg/dL (0.2-1.3); Blood Urea Nitrogen 12 mg/dL (7-17); Calcium 8.4 mg/dL (8.4-10.2); Carbon Dioxide 26 mmol/L (22-30); Chloride 103 mmol/L (98-107); Estimated CRCL calculation 53 ml/min; Estimated Glomerular Filt Rate > 60; Glucose 97 mg/dL (65-110); Potassium 3.6 mmol/L (3.4-5.0); Sodium 137 mmol/L (137-145)
[2024-06-30 08:29] VITALS: PULSE 81
[2024-06-30] MEDS: PANTOPRAZOLE SODIUM IV 40 MG VIAL IV PUSH (08:29)
[2024-06-30] MEDS: ALPRAZolam (*CRX) 0.25 MG TABLET PO (08:29)
[2024-06-30] MEDS: METOPROLOL TARTRATE 50 MG TAB PO (08:29)
[2024-06-30] MEDS: CEFDINIR 300 MG CAPSULE PO (09:57)
--- NOTE | 2024-06-30 13:27 | P.PNGS_ITS ---
Progress Note: A&P Assessment and Plan (1) Diverticulitis of colon with perforation: Code(s): K57.20 - Diverticulitis of large intestine with perforation and abscess without bleeding Status: Acute Assessment and Plan: exam benign, ok to dc home c po abx, analgesia, low fiber diet, f/u 2 wks Subjective Subjective Date/Time Seen: 06/30/24 13:27 Interval history: feels better, pain improved, +bowel fxn, ania diet Review of Systems Review of Systems: All systems reviewed & are unremarkable except as noted in HPI and below Exam Const: General: cooperative, comfortable and no acute distress Resp: Auscultation: clear to auscultation bilaterally Cardio: Rate: regular rate Rhythm: regular rhythm GI: Inspection: normal to inspection and non-distended GI Palp: No abdominal tenderness, Yes Soft to palpation, No Tenderness to palpation present (GI), No Guarding due to palpation present (GI) and No Rigid due to palpation Objective Data Vital Signs Vital Signs: Vital Signs - 24 hr 06/29/24 17:18 06/29/24 20:00 06/29/24 22:00 Temperature 36.7 C 36.4 C Pulse Rate 92 99 Respiratory Rate 16 20 Blood Pressure 142/69 H 154/83 H Pulse Oximetry 97 98 Oxygen Delivery Room Air 06/29/24 22:20 06/30/24 05:37 06/30/24 08:29 Temperature 36.4 C L Pulse Rate 92 81 81 Respiratory Rate 18 Blood Pressure 136/80 Pulse Oximetry 100 Oxygen Delivery 06/30/24 08:34 Temperature Pulse Rate Respiratory Rate Blood Pressure Pulse Oximetry Oxygen Delivery Room Air Intake/Output Intake/Output: Intake & Output 06/27/24 06/28/24 06/29/24 06/30/24 23:59 23:59 23:59 23:59 Intake Total 1110 2601 1250 540 Output Total 1400 550 Balance 1110 1201 1250 -10 Meds/Results Medications: Active Medications Generic Name Dose Route Start Last Admin Trade Name Freq PRN Reason Stop Dose Admin Acetaminophen 650 mg 06/26/24 10:09 Acetaminophen 325 Mg Tablet PO Q4H PRN Mild Pain (1-3) or Fever Hydrocodone Bitart/Acetaminophen 1 tab 06/26/24 10:09 06/30/24 00:38 Hydrocodone/Acetaminophen (*Crx) 5-325 Mg Tablet PO 1 tab Q4H PRN Administration Moderate Pain (4-6) Alprazolam 0.25 mg 06/26/24 17:00 06/30/24 08:29 Alprazolam (*Crx) 0.25 Mg Tablet PO 0.25 mg BID RAJESH Administration Amitriptyline HCl 25 mg 06/26/24 21:00 06/29/24 22:21 Amitriptyline Hcl 25 Mg Tablet PO 25 mg QHS RAJESH Administration Cefdinir 300 mg 06/30/24 09:00 06/30/24 09:57 Cefdinir 300 Mg Capsule PO 07/09/24 23:59 300 mg Q12HR RAJESH Administration Hydromorphone HCl 1 mg 06/26/24 06:47 06/28/24 20:16 Hydromorphone Hcl Inj (*Crx) 1 Mg/Ml Syr IV PUSH 1 mg Q3H PRN Administration Pain Rated 7-10 Metoprolol Tartrate 50 mg 06/26/24 21:00 06/30/24 08:29 Metoprolol Tartrate 50 Mg Tab PO 50 mg Q12HR RAJESH Administration Metronidazole 500 mg 06/30/24 14:00 Metronidazole 500 Mg Tablet PO 07/09/24 23:59 Q8HR RAJESH Ondansetron HCl 4 mg 06/26/24 10:09 06/28/24 20:16 Ondansetron Inj 4 Mg/2 Ml Vial IV PUSH 4 mg Q6H PRN Administration Nausea And Vomiting Pantoprazole Sodium 40 mg 06/27/24 09:00 06/30/24 08:29 Pantoprazole Sodium Iv 40 Mg Vial IV PUSH 40 mg QAM RAJESH Administration Radiology Results: ITS Impressions Abdomen/Pelvis CT 06/28/24 23:17 IMPRESSION: Redemonstration of sigmoid diverticulitis now with a 5.6 cm collection of fluid and air in the right hemipelvis, for which an abscess is suspected. Labs Labs: Laboratory Results - last 24 hr 06/30/24 05:20 WBC 9.6 RBC 3.76 L Hgb 11.6 L Hct 36.4 L MCV 96.8 MCH 30.9 MCHC 31.9 L RDW 12.3 Plt Count 272 MPV 9.4 Immature Gran % (Auto) 0.6 H Neut % (Auto) 64.5 Lymph % (Auto) 23.5 [place] % (Auto) 9.5 H Eos % (Auto) 1.5 Baso % (Auto) 0.4 Lymph # (Auto) 2.25 [place] # (Auto) 0.9 H Eos # (Auto) 0.1 Baso # (Auto) 0.0 Abs Immat Gran (auto) 0.06 H Absolute Neuts (auto) 6.2 Absolute Nucleated RBC 0.000 Nucleated RBC % 0.0 Sodium 137 Potassium 3.6 Chloride 103 Carbon Dioxide 26 Anion Gap 8 BUN 12 Creatinine 0.85 Estim Creat Clear Calc 53 Estimated GFR > 60 Glucose 97 Calcium 8.4 Total Bilirubin 0.4 AST 24 ALT 14 Alkaline Phosphatase 70 Total Protein 6.0 L Albumin 3.3 L
[2024-06-30 13:59] VITALS: BP 118/74; PULSE 91; RESP 19; TEMP 36.1; O2SAT 97
[2024-06-30] MEDS: metroNIDAZOLE 500 MG TABLET PO (13:59)
--- NOTE | 2024-06-30 14:22 | P.DS_ITS ---
DS: Admitting Diagnosis Discharge Date 06/30/24 Admitting Diagnosis Diverticulitis DS: Discharge Diagnosis Discharge Diagnosis (1) Diverticulitis of colon with perforation: Code(s): K57.20 - Diverticulitis of large intestine with perforation and abscess without bleeding Status: Acute Assessment and Plan: patient was found to have diverticulitis with micro perforation CT abdomen general surgery following Tolerating diet P.o. Flagyl and Omnicef * Serial CBC/CMP and ABD exams * pain control as needed * Antiemetics * PPI * Surgery team on board * Repeat CT showed possible abscess. IR unable to drain actual cavity is measuring more around 2.5 x 1.5 x 2.0 cm with mostly air and very little fluid that would be drained (2) Tachycardia: Code(s): R00.0 - Tachycardia, unspecified Status: Acute Assessment and Plan: * HR as high as 131 * Resumed patient's metoprolol * Cardiac monitoring 06/28 * Improved after resuming home metoprolol Plan Continue oral antibiotics for 2 weeks. Follow up repeat CT before stopping antibiotics. Follow up with surgery Clinic in 2 weeks follow-up with PCP in 1 week DS: Summary Hospital Course Hospital Course: patient is a 69-year-old female who is admitted for further evaluation and treatment of diverticulitis with microperforation 06/27/2024: Patient with no new complaints, ABD mildly tender but tolerating liquid diet. patient did report vaginal pain and burning states it feels as though she has a urinary tract infection. 06/28/24 Patient was seen examined dissipated she is feeling better. Abdominal pain improving. Tolerating diet. Reviewed surgery team recommendation. Leukocytosis improving. 06/29/24 She had severe abdominal pain last night. Repeat CT showed possible abscess. IR unable to drain actual cavity is measuring more around 2.5 x 1.5 x 2.0 cm with mostly air and very little fluid that would be drained Surgery team on board. Plan for monitor for now. 07/01/24 Patient was seen and examined at bedside. She is feeling fine. . Abdominal pain improved but denies any chest pain, SOB, of vomiting. surgery team recommended p.o. antibiotics and follow as outpatient Status at Discharge Overall status at discharge: patient is progressing back to baseline Time Spent with Patient Time attestation: Total time spent providing and/or coordinating discharge services: Exam Const: General: comfortable and no acute distress Other: Pleasant female looks stated age HENMT: Mouth: Yes moist mucous membranes Eyes: General: appearance normal, both eyes and all related structures Pupils: Equal, round and reactive pupils present Cardio: Rate: regular rate and tachycardic Rhythm: regular rhythm GI: Auscultation: normal bowel sounds Skin: General skin exam: normal color and no rashes or lesions noted Wounds: no wounds Neuro: Cranial nerves: Yes Equal, round and reactive pupils present Speech: normal speech Sensory Exam: normal sensation Extrem: General: normal to inspection Psych: Mental Status: mental status grossly normal DS: Data Data Completed and Pending Labs on day of discharge: Labs from last 24 hours 06/30/24 05:20 WBC 9.6 RBC 3.76 L Hgb 11.6 L Hct 36.4 L MCV 96.8 MCH 30.9 MCHC 31.9 L RDW 12.3 Plt Count 272 MPV 9.4 Immature Gran % (Auto) 0.6 H Neut % (Auto) 64.5 Lymph % (Auto) 23.5 [place] % (Auto) 9.5 H Eos % (Auto) 1.5 Baso % (Auto) 0.4 Lymph # (Auto) 2.25 [place] # (Auto) 0.9 H Eos # (Auto) 0.1 Baso # (Auto) 0.0 Abs Immat Gran (auto) 0.06 H Absolute Neuts (auto) 6.2 Absolute Nucleated RBC 0.000 Nucleated RBC % 0.0 Sodium 137 Potassium 3.6 Chloride 103 Carbon Dioxide 26 Anion Gap 8 BUN 12 Creatinine 0.85 Estim Creat Clear Calc 53 Estimated GFR > 60 Glucose 97 Calcium 8.4 Total Bilirubin 0.4 AST 24 ALT 14 Alkaline Phosphatase 70 Total Protein 6.0 L Albumin 3.3 L Preliminary micro results at discharge 06/26/24 11:52 Blood Culture - Preliminary Blood 06/26/24 11:47 Blood Culture - Preliminary Blood Discharge Plan Discharge Consulting providers: Su Llanes; Amy Quintero Discharging Clinician: Anastacia Barger Patient Disposition: Home, Self-Care Activity: as tolerated Diet: low fiber Patient Instructions: Diverticulitis (DC), Antibiotic Form Patient Language: Thai Stand Alone Forms: General Discharge Information Follow-up/Referrals: Amy Quintero MD [Physician] - 2 Weeks Discharge Medications: New hydrocodone-acetaminophen 5-325 mg Tablet 1 tablet PO Q4H PRN (Reason: Moderate Pain (4-6)) Qty: 15 0RF metronidazole 500 mg Tablet 500 mg PO Q8HR Qty: 52 0RF cefdinir 300 mg Capsule 300 mg PO Q12HR Qty: 28 0RF Continued metoprolol tartrate 50 mg tablet 50 mg PO BID amitriptyline 25 mg tablet 25 mg PO QHS alprazolam 0.25 mg tablet 0.25 mg PO BID Other Ambulatory Orders: CT abdomen pelvis wo con (Routine) Timeframe: 12 Day Location: Determined by Patient Ordered By: Anastacia Barger Date of admission: 06/26/24 06:08 Primary Care Provider: Jacob Lr Admitting Provider: Vickie Eden Attending physician on admission: Vickie Eden Condition: Stable Quality VTE Prophylaxis VTE prophylaxis: mechanical ordered
== END 2024-06-30 15:58 | disposition home or self-care (01) | DRG 392 ==
LOC: ANHED 06-26 06:08 → ANHIMU 06-26 07:02 → ANH3MED 06-26 07:15
PROVIDERS: Nurse Practitioner Family; Admitting Provider Internal Medicine; Emergency Provider Emergency Medicine; PCP Internal Medicine; Visit Provider Internal Medicine
DX: K57.20 Diverticulitis of large intestine with perforation and abscess without bleeding (principal); R00.0 Tachycardia, unspecified; K21.9 Gastro-esophageal reflux disease without esophagitis
CPT/HCPCS: 36415; 74176; 74177; 80053; 81003; 81025; 83690; 85025; 85610; 85730; 87040; 93005; 96365; 96366; 96367; 96375; 99285; A9270; J0692; J0696; J1171; J1836; J2405; J2470; J7030; Q9967

== ENCOUNTER 2024-07-06 10:51 | Outpatient (CLI) | payer MEDICARE, SELFPAY ==
[2024-07-06 11:15] LABS: Hematocrit 39.4 % (35.0-42.0); Hemoglobin 12.6 g/dL (11.7-13.8); Mean Corpuscular Volume 93.8 fL (78.0-102.0); Mean Platelet Volume 9.3 fl (9.2-11.8); Platelet Count Result 514 K/mm3 (150-420); Red Cell Distribution Width 12.3 % (11.6-14.4); White Blood Count 15.4 K/mm3 (4.8-10.8)
--- OUTSIDE RECORDS SUMMARY | 2024-07-06 11:41 | XMS_ITS | Continuity of Care Document ---
Author Name [facility] Organization [facility] Care Team Providers Care Clinical Support Nurse Name Role Phone [facility] Unavailable Unavailable Immunizations Combined list of available immunizations from the Department of Defense and Veterans Affairs facilities. Immunization Series Date Given Administered By Site Reaction Lot Number CVX Code Drug Biomedical Repair Technician Status Comments Source COVID-19 (MODERNA), MRNA, LNP-S, PF, 100 MCG/0.5 ML DOSE 3 2020 207 complet ed MOD; [id number]; 2 [facility]
--- OUTSIDE RECORDS SUMMARY | 2024-07-06 11:41 | XMS_ITS | Continuity of Care Document ---
Author Organization [facility] Address [address] [place] [address] Phone Care Team Providers Care Functional Director Name Role Phone Maryan HATCH FACS, Kasi Unavailable Unavailab le Procedures Procedure Date Eye Exam Established Pt Office/outpatient Visit, Est Eye Exam & Treatment Eye Exam Established Pt Advance Directives Directive Yes / No Effective Date File Name No Information Encounters Encounter Description Practice Location Reason(s) For Visit Diagnoses Date Provider Providers Copied on Encounter [facility], [id number] [place] [address] [address], [place], [place], [id number], [place] tel:[phone] SEC Pat Abhishek Cox No Information 1 7 Maryan Villaseñor. [address] [facility], [address], [place], [place], [id number], [place]. tel:[phone] Office/outpat ient Visit, Est [facility], [address] [place] [address] [address], [place], [place], [id number], [place] tel:[phone] SEC [facility] No Information 0-200 [address] Delgado Vazquez. [address] [facility], [address], [place], [place], [address], [place]. tel:[phone] [facility], [address] [place] [address] [address], [place], [place], [id number], [place] tel:[phone] SEC [facility] No Information 6-200 [address] Vazquez. [address], [address], [place], [place], [address], [place]. tel:[phone] [facility], [address], [place], [place], [address], [place] tel:[phone] SEC [facility] No Information [address] Vaz[address]. [address], [address], [place], [place], [address], [place]. tel:[phone] Family History Family Member Type Diagnosis Age At Onset No Information Payers Payer name Insurance type Covered constitution party ID Authoriza tion(s) No Information Social [...]
--- OUTSIDE RECORDS SUMMARY | 2024-07-06 11:41 | XMS_ITS | Clinical Summary ---
Author Organization [facility] Address [address] [address] Phone Care Team Providers Care Chief Media Officer Name Role Phone Jacob Lr MD Primary [...] Comments Blood Pressure 145/86 03/24/2017 12:00 PM MATERIAL HAULER Pulse 67 03/24/2017 10:53 AM MATERIAL HAULER Temperature 36 C (96.8 F) 03/24/2017 12:00 PM MATERIAL HAULER Respiratory Rate 16 03/24/2017 12:00 PM MATERIAL HAULER Oxygen Saturation 100% 03/24/2017 12:00 PM MATERIAL HAULER Inhaled Oxygen Concentration - - Weight 72.6 kg (160 lb) 03/24/2017 10:53 AM MATERIAL HAULER Height 167.6 cm (5' 6 ) 03/24/2017 10:53 AM MATERIAL HAULER Body Mass Index 25.82 03/24/2017 10:53 AM MATERIAL HAULER Plan of Treatment Health Maintenance Due Date [...] age to complete this topic Care Teams Chief Media Officer Relationship Specialty Start Date End Date Jacob Lr MD [address], [place] [id number] PCP - General Internal Medicine 11/24/16
[2024-07-06 11:56] LABS: Alanine Aminotransferase 16 U/L (14-59); Albumin Level 3.1 g/dL (3.4-5.0); Alkaline Phosphatase 84 U/L (46-116); Anion Gap 11 mmol/L (4-12); Aspartate Amino Transferase 16 U/L (15-37); Bilirubin,Total 0.5 mg/dL (0.00-1.00); Blood Urea Nitrogen 14 mg/dL (7-18); CRP 7.6 mg/dL (0.0-0.9); Calcium 8.9 mg/dL (8.5-10.1); Carbon Dioxide 28 mmol/L (21-32); Chloride 101 mmol/L (98-108); Estimated Glomerular Filt Rate 59; Glucose 113 mg/dL (70-99); Osmolality Calculated 291 mOsm/kg (285-295); Potassium 3.6 mmol/L (3.5-5.1); Sodium 140 mmol/L (136-145); Total Protein 7.1 g/dL (6.4-8.2)
== END 2024-07-06 10:52 | disposition home or self-care (01) ==
LOC: CHSLAB 10:53
PROVIDERS: PCP Internal Medicine; Visit Provider Internal Medicine
DX: K57.92 Diverticulitis of intestine, part unspecified, without perforation or abscess without bleeding (principal)
CPT/HCPCS: 36415; 80053; 85027; 85055; 86140

== ENCOUNTER 2024-07-11 07:57 | Outpatient (CLI) | payer MEDICARE, SELFPAY ==
--- NOTE | ~2024-07-11 | CT_ITS ---
CLINICAL INDICATION: History of diverticulitis with subsequent abscess formation on recent imaging. COMPARISON: 06/28/2024 and dating back to 06/19/2020. TECHNIQUE: Multiple contiguous axial images of the abdomen and pelvis were performed following the ad ministration of with 100 mL Omnipaque-350 intravenous contrast The dose-length product (DLP) was 372.93 mGy-cm. Automated exposure control and iterative reconstruction technique were employed. FINDINGS/OBSERVATIONS: Visualized lower thorax: The bilateral lung bases are clear. The heart is of normal size, without pericardial effusion. Small hiatal hernia is present. Liver: The liver demonstrates homogeneous enhancement and is not enlarged. Gallbladder and biliary system: The gallbladder is only minimally distended, and otherwise unremarkable. Pancreas: The pancreas enhances homogeneously without ductal dilatation. Spleen: The spleen enhances homogeneously and is not enlarged. Kidneys: The bilateral kidneys enhance symmetrically without hydronephrosis or renal calculi. Adrenal glands: Unremarkable. Gastrointestinal tract: Redemonstration of a thick wall rim-enhancing focus of dense fluid attenuation within the pelvis cons istent with patient's known diverticular abscess. This focus measures 5.9 x 5.2 x 6.3 cm (anterior po sterior by medial to lateral by cranial to caudal dimension). This has increased in size when compared with previous study when it measured 5.6 x 3.6 x 3.0 cm (ant erior to posterior x medial to lateral x cranial to caudal dimension). This abscess is intimately ass ociated with the dome of the bladder, and multiple adjacent loops of small and large bowel, with dive rticulum of the sigmoid colon suspected to represent a contained perforation. Vasculature: Unremarkable. Lymph nodes: No pathologically enlarged or morphologically suspicious lymph nodes within the retroperitoneum or at the root of the mesentery. Pelvic structures: The bladder is minimally distended, and demonstrates thickened harrison, likely secondary to surrounding inflammation from the pelvic abscess. The prostate gland is not enlarged. Body wall and musculoskeletal: Small fat-containing umbilical hernia. Age-appropriate degenerative disease within the lumbar spine IMPRESSION: Redemonstration of a diverticular abscess, increasing in size and worsening in morphology within the deep pelvis with a clear window of access for percutaneous drainage, which is recommended. Reviewed, dictated and finalized at location A. IMPRESSION: Redemonstration of a diverticular abscess, increasing in size and worsening in morphology within the deep pelvis with a clear window of access for percutaneou s drainage, which is recommended.
--- OUTSIDE RECORDS SUMMARY | 2024-07-11 08:06 | XMS_ITS | Continuity of Care Document ---
Author Name [facility] Organization [facility] Care Team Providers Care Motorboat Mechanic Name Role Phone [facility] Unavailable Unavailable Immunizations Combined list of available immunizations from the Department of Defense and Veterans Affairs facilities. Immunization Series Date Given Administered By Site Reaction Lot Number [id number] Code Drug Helix Coil Winder Status Comments Source COVID-19 (MODERNA), MRNA, LNP-S, PF, 100 MCG/0.5 ML DOSE 3 2020 207 complet ed MOD; [id number]; 2 [facility]
--- OUTSIDE RECORDS SUMMARY | 2024-07-11 08:06 | XMS_ITS | Continuity of Care Document ---
Author Organization [facility] Address [address] [place] [address] Phone Care Team Providers Care Gyn Physician Name Role Phone Maryan HATCH FACS, Kasi Unavailable Unavailab le Procedures Procedure Date Eye Exam Established Pt Office/outpatient Visit, Est Eye Exam & Treatment Eye Exam Established Pt Advance Directives Directive Yes / No Effective Date File Name No Information Encounters Encounter Description Practice Location Reason(s) For Visit Diagnoses Date Provider Providers Copied on Encounter [facility], [address] [place] [address] [address], [place], [place], [address], [place] tel:[phone] SEC Pat Abhishek Cox No Information 1 7 Maryan Villaseñor. [address] [address] [employer] [facility], [address], [place], [place], [address], [place]. tel:[phone] Office/outpat ient Visit, Est [facility], [address] [place] [address] [address], [place], [place], [address], [place] tel:[phone] SEC [facility] No Information 0-200 7 Delgado Vazquez. [address] [facility], [address], [place], [place], [address], [place]. tel:[phone] [facility], [address] [place] [address] [address], [place], [place], [address], [place] tel:[phone] SEC [facility] No Information 6-200 7 Delgado Vazquez. [address], [address], [place], [place], [address], [place]. tel:[phone] [facility] Eye [facility], [address], [place], [place], [address], [place] tel:[phone] SEC [facility] No Information 2200 7 Delgado Vazquez. [address], [address], [place], [place], [address], [place]. tel:[phone] Family History Family Member Type Diagnosis Age [...]
== END 2024-07-11 07:58 | disposition home or self-care (01) ==
LOC: CHSIMG 07:59
PROVIDERS: PCP Internal Medicine; Visit Provider Surgery
DX: K57.92 Diverticulitis of intestine, part unspecified, without perforation or abscess without bleeding (principal)
CPT/HCPCS: 74177; Q9967

== ENCOUNTER 2024-07-13 17:45 | Inpatient (IN) | payer MEDICARE, SELFPAY ==
--- NOTE | ~2024-07-13 | CT_ITS ---
EXAMINATION: CT guide absc cath placement DATE: 07/14/2024 10:13 INDICATION: Diverticular abscess TECHNIQUE: The procedure including the risks and benefits was discussed with the patient. Risks discu ssed included bleeding and infection. The patient understood the risks and benefits and agreed to pro ceed. The patient was confirmed to be receiving appropriate antibiotic coverage. The skin overlying the anterior pelvis was prepped and draped in usual sterile fashion. Anesthetic was administered wit h 1% lidocaine subcutaneously. Conscious sedation was provided with 1 mg Versed and 100 mcg fentanyl IV. Utilizing CT guidance and 18-gauge trochar needle was was inserted into the pelvic peritoneal flu id collection by trocar technique. The trocar was removed and a J-wire advanced into the fluid collec tion with position confirmed by CT. Utilizing Seldinger technique the needle was removed. The wire an d the tract serially dilated to 8 Maldivian. An 8.5 Maldivian drainage catheter was then advanced over the wire into the fluid collection and the loop formed and locked with position again confirmed by CT. Th e wire was removed and the catheter was stitched to the skin with suture. Antibiotic appointment and a sterile dressing were applied. An additional adhesive fixation device was applied. 40 mL of purulen t appearing opaque george-colored fluid was aspirated and sent to the lab for Gram stain and cultures. T here were no immediate complications. The dose-length product was 154.32 mGy-cm. FINDINGS: CT images demonstrate the catheter within the right pelvic abscess cavity. 30 mL fluid was aspirated for testing. IMPRESSION: 1. Successful CT-guided pelvic abscess drainage catheter placement. 2. 40 mL fluid was sent for aerobic and anaerobic cultures. 3. The catheter will be managed by Dr. Pinon. Reviewed, dictated and finalized at location A.
--- NOTE | ~2024-07-13 | CT_ITS ---
EXAMINATION: CT abdomen pelvis w con DATE: 07/17/2024 14:04 INDICATION: Reevaluate pelvic abscess. TECHNIQUE: Computed tomography (CT) of the abdomen and pelvis was performed with 100 mL Omnipaque-350 intravenous contrast. Automated exposure control and iterative reconstruction technique were employe d. The dose-length product was 346.98 mGy-cm. COMPARISON: CT dated 07/11/2024 FINDINGS: Minimal discoid atelectasis in the basilar right lower lobe. Heart size normal. No pericardial or ple ural effusion. Liver, gallbladder, spleen, pancreas, bilateral adrenal glands and kidneys are normal. The uterus is not identified and has likely been surgically resected. There is fluid in the proximal colon consistent with diarrhea. Numerous diverticula along the descending and sigmoid colon. There i s persistent wall thickening and inflammatory stranding surrounding the mid sigmoid colon consistent with diverticulitis. Interval placement of a right pelvic abscess drainage catheter with near complet e decompression of the prior abscess. There is residual 1.5 cm fluid collection with small focus of g as situated slightly caudal to the loop of the drainage catheter and between the bladder and the cerv ical cuff. No pathologically enlarged abdominal or pelvic lymphadenopathy. Severe spondylosis at the lumbosacral junction with mild spondylosis more cephalad lumbar and lower thoracic spine. IMPRESSION: 1. Perforated sigmoid diverticulitis with interval near complete decompression of the previously seen right pelvic abscess post percutaneous drainage catheter placement with 1.5 cm diameter residual flu id collection. Reviewed, dictated and finalized at location A. IMPRESSION: 1. Perforated sigmoid diverticulitis with interval near complete decompression of the previously seen right pelvic abscess post percutaneous drainage catheter placement with 1.5 cm diameter residual fluid collection.
--- OUTSIDE RECORDS SUMMARY | 2024-07-13 17:33 | XMS_ITS | Continuity of Care Document ---
Author Organization [facility] Address [address] [place] [address] Phone Care Team Providers Care Global Marketing Intern Name Role Phone Maryan HATCH FACS, Kasi Unavailable Unavailab le Procedures Procedure Date Eye Exam Established Pt Office/outpatient Visit, Est Eye Exam & Treatment Eye Exam Established Pt Advance Directives Directive Yes / No Effective Date File Name No Information Encounters Encounter Description Practice Location Reason(s) For Visit Diagnoses Date Provider Providers Copied on Encounter [facility], [address] [place] [address] [address], [place], [place], [address], [place] tel:[phone] SEC Pat Abhishek Cox No Information 1 7 Maryan Villaseñor. [address] [employer] [facility], [address], [place], [place], [address], [place]. tel:[phone] Office/outpat ient Visit, Est [facility], [address] [place] [address] [address], [place], [place], [address], [place] tel:[phone] SEC [facility] No Information 0-200 7 Delgado Vazquez. [address] [facility], [address], [place], [place], [address], [place]. tel:[phone] [facility], [address] [place] [address] [address], [place], [place], [address], [place] tel:[phone] SEC [facility] No Information 6-200 7 Delgado Vazquez. [address], [address], [place], [place], [address], [place]. tel:[phone] [facility], [address], [place], [place], [address], [place] tel:[phone] SEC [facility] No Information 2200 7 Delgado Vazquez. [address], [address], [place], [place], [address], [place]. tel:[phone] Family History Family Member Type Diagnosis Age [...]
--- OUTSIDE RECORDS SUMMARY | 2024-07-13 17:33 | XMS_ITS | Clinical Summary ---
Author Organization [facility] Address [address] [address] Phone Care Team Providers Care Racehorse Trainer Name Role Phone Jacob Lr MD Primary Care Provider [phone] Allergies Active Allergy Reactions Criticality Noted Date [...] Comments Blood Pressure 145/86 03/24/2017 12:00 PM LITHOGRAPHIC PRESS FEEDER Pulse 67 03/24/2017 10:53 AM LITHOGRAPHIC PRESS FEEDER Temperature 36 C (96.8 F) 03/24/2017 12:00 PM LITHOGRAPHIC PRESS FEEDER Respiratory Rate 16 03/24/2017 12:00 PM LITHOGRAPHIC PRESS FEEDER Oxygen Saturation 100% 03/24/2017 12:00 PM LITHOGRAPHIC PRESS FEEDER Inhaled Oxygen Concentration - - Weight 72.6 kg (160 lb) 03/24/2017 10:53 AM LITHOGRAPHIC PRESS FEEDER Height 167.6 cm (5' 6 ) 03/24/2017 10:53 AM LITHOGRAPHIC PRESS FEEDER Body Mass Index 25.82 03/24/2017 10:53 AM LITHOGRAPHIC PRESS FEEDER Plan of Treatment Health Maintenance Due Date [...] age to complete this topic Care Teams Racehorse Trainer Relationship Specialty Start Date End Date Jacob Lr MD [address], [place] [id number] PCP - General Internal Medicine 11/24/16
--- OUTSIDE RECORDS SUMMARY | 2024-07-13 17:33 | XMS_ITS | Continuity of Care Document ---
Author Name [facility] Organization [facility] Care Team Providers Care Land Leveler Name Role Phone [facility] Unavailable Unavailable Immunizations Combined list of available immunizations from the Department of Defense and Veterans Affairs facilities. Immunization Series Date Given Administered By Site Reaction Lot Number CVX Code Drug Machine Setup Operator Status Comments Source COVID-19 (MODERNA), MRNA, LNP-S, PF, 100 MCG/0.5 ML DOSE 3 2020 207 complet ed MOD; [id number]; 2 [facility]
[2024-07-13 17:39] VITALS: BMI 25.4
--- NOTE | 2024-07-13 17:39 | ADMGEN ---
This patient, Elif Monzon, was admitted to 2 Medical Room 256-. Patient/family oriented to hospital policies and general routines including ID bracelet, bed and alarms, visiting hours, pain management, procedures, bathroom and other care routines, personal items, smoking policy, room service/diet, and visiting hours. Information on how to activate the Rapid Response Team has been discussed. Patient/Family are encouraged to report perceived risks to care and to ask questions if they do not understand what they are told or what they should do.
--- OUTSIDE RECORDS SUMMARY | 2024-07-13 17:55 | XMS_ITS | Continuity of Care Document ---
Author Organization [facility] Address [address] [facility] [address] [place] [address] Phone Care Team Providers Care Special Services Agent Name Role Phone Maryan HATCH FACS, Kasi Unavailable Unavailab le Procedures Procedure Date Eye Exam Established Pt Office/outpatient Visit, Est Eye Exam & Treatment Eye Exam Established Pt Advance Directives Directive Yes / No Effective Date File Name No Information Encounters Encounter Description Practice Location Reason(s) For Visit Diagnoses Date Provider Providers Copied on Encounter [facility], [address] [place] [address] [address], [place], [place], [address], [place] tel:[phone] SEC Pat Abhishek Cox No Information 1 7 Maryan Villaseñor. [address] [employer] [facility] [place] [facility], [address], [place], [place], [address], [place]. tel:[phone] Office/outpat ient Visit, Est [facility], [address] [place] [address] [address], [place], [place], [address], [place] tel:[phone] SEC [facility] No Information 0-200 7 Delgado Vazquez. [address] [facility], [address], [place], [place], [address], [place]. tel:[phone] [facility], [address] [place] [address] [address], [place], [place], [address], [place] tel:[phone] SEC [facility] No Information 6-200 7 Delgado Vazquez. [address], [address], [place], [place], [address], [place]. tel:[phone] [facility], [address], [place], [place], [address], [place] tel:[phone] SEC [facility] No Information 2200 7 Delgado Vazquez. [address], [address], [place], [place], [address], [place]. tel:[phone] Family History Family Member Type Diagnosis Age [...]
--- OUTSIDE RECORDS SUMMARY | 2024-07-13 17:55 | XMS_ITS | Continuity of Care Document ---
Author Name [facility] Organization [facility] Care Team Providers Care Safety Equipment Tester Name Role Phone [facility] Unavailable Unavailable Immunizations Combined list of available immunizations from the Department of Defense and Veterans Affairs facilities. Immunization Series Date Given Administered By Site Reaction Lot Number CVX Code Drug Inventory Associate And Driver Status Comments Source COVID-19 (MODERNA), MRNA, LNP-S, PF, 100 MCG/0.5 ML DOSE 3 2020 207 complet ed MOD; [id number]; 2 [facility]
--- OUTSIDE RECORDS SUMMARY | 2024-07-13 17:55 | XMS_ITS | Clinical Summary ---
Author Organization [facility] Address [address] [address] Phone Care Team Providers Care Tax Investigator Name Role Phone Jacob Lr MD Primary Care Provider [phone] Allergies Active Allergy Reactions Criticality Noted Date [...] Comments Blood Pressure 145/86 03/24/2017 12:00 PM OUTPATIENT COORDINATOR Pulse 67 03/24/2017 10:53 AM OUTPATIENT COORDINATOR Temperature 36 C (96.8 F) 03/24/2017 12:00 PM OUTPATIENT COORDINATOR Respiratory Rate 16 03/24/2017 12:00 PM OUTPATIENT COORDINATOR Oxygen Saturation 100% 03/24/2017 12:00 PM OUTPATIENT COORDINATOR Inhaled Oxygen Concentration - - Weight 72.6 kg (160 lb) 03/24/2017 10:53 AM OUTPATIENT COORDINATOR Height 167.6 cm (5' 6 ) 03/24/2017 10:53 AM OUTPATIENT COORDINATOR Body Mass Index 25.82 03/24/2017 10:53 AM OUTPATIENT COORDINATOR Plan of Treatment Health Maintenance Due Date [...] age to complete this topic Care Teams Tax Investigator Relationship Specialty Start Date End Date Jacob Lr MD [address] [place], [place] [id number] PCP - General Internal Medicine 11/24/16
[2024-07-13 18:24] VITALS: BP 154/72; PULSE 78; RESP 18; TEMP 36.7; O2SAT 100
[2024-07-13 20:03] VITALS: BP 145/67; PULSE 88; RESP 20; TEMP 36.7; O2SAT 96
--- NOTE | 2024-07-13 23:00 | P.HP_ITS ---
H&P: HPI History of Present Illness Date/Time: 07/13/24 23:00 Chief Complaint: Diverticular abscess. Narrative: This is a 69-year-old female with hypertension, gastroesophageal reflux disease, and anxiety who is being directly admitted to the hospital from the outpatient setting after she was found to have an enlarging diverticular abscess on CT scan done today as an outpatient. She was admitted to the hospital at the end of May 2024 with sigmoid diverticulitis with evidence of perforation on initial imaging. Repeat CT scan done 2 days thereafter showed a fluid and air collection in the right hemipelvis which did not appear large enough to be drained. Her exam improved, she was tolerating a diet, and she was able to be discharged home with oral antibiotics on 06/30/2024 antibiotics. Unfortunately she continues to have pain, poor appetite, loose stools, chills, and night sweats. CT scan today showed diverticular abscess increasing in size and worsening in morphology and she is being directly admitted for further treatment. She denies fever, chest pain, shortness of breath, and vomiting. Review of Systems Review of Systems: 12 systems were reviewed and are negativ e except for as per HPI. [facility] Past Medical History Medical History (Updated 07/13/24 @ 23:07 by Shruthi Napier PA-C) Hypertension Anxiety Gastroesophageal reflux disease Diverticulitis (05/2024) Surgical History Surgical History (Updated 07/13/24 @ 23:04 by Shruthi Napier PA-C) History of partial hysterectomy History of bladder surgery Family History Family History Sibling Depression Family history of malignant neoplasm of uterus Family history of malignant neoplasm of breast in first degree relative Patient's sister is in good health Mother Family history of lung cancer Father Family history of congestive heart failure Family history of heart disease in male family member before age 55 Other Family history of cardiovascular disease Hypertension Social History Social History (Updated 07/13/24 @ 23:05 by Shruthi Napier PA-C) Social History: Surrogate medical decision maker: Wyatt Monzon, [place]. Code status: Full code. Smoking status: Never smoker Alcohol intake: never Substance use: never Substance use type: does not use Do You Feel Safe in your Home?: Yes Lack of Transportation: No Lack of Food: Never True Current Housing: I Have Housing Concerned About Future Housing: No Difficulty Paying Gas/Electric Bills: No Difficulty Paying for Meds: No Currently Unemployed: No Education: Bachelor's Degree Difficulty w/ Childcare or Family Care: No Spiritual care concerns: No Meds Home Medications and Allergies Home Medications ?Medication ?Instructions ?Recorded ?Confirmed ?Type alprazolam 0.25 mg tablet 0.25 mg PO BID 07/24/20 07/13/24 History amitriptyline 25 mg tablet 25 mg PO QHS 07/24/20 07/13/24 History metoprolol tartrate 50 mg tablet 50 mg PO BID 07/24/20 07/13/24 History hydrocodone 5 mg-acetaminophen 325 1 tablet PO Q4H PRN Moderate Pain 06/30/24 07/13/24 Rx mg tablet (4-6) #15 tabs Allergies Allergy/AdvReac Type Severity Reaction Status Date / Time Penicillins Allergy Unknown Unknown Verified 06/26/24 08:35 piperacillin Allergy Unknown Rash Verified 06/26/24 08:36 tazobactam Allergy Unknown Rash Verified 06/26/24 08:36 Vital Signs Vital Signs - 24 hr 07/13/24 18:24 07/13/24 20:03 Temperature 98.1 F 98.1 F Pulse Rate 78 88 Respiratory Rate 18 20 Blood Pressure 154/72 H 145/67 H Pulse Oximetry 100 96 Exam Narrative: General: Nontoxic-appearing female in the semi-White position in bed. Weight: 71.7 kg. BMI: 25.5. HEENT: PERRL, EOMI. Sclera anicteric. Tacky mucous membranes. Neck: Supple. Respiratory: Lungs are clear to auscultation bilaterally. Cardiovascular: Regular rate and rhythm with S1-S2. Gastrointestinal: Abdomen is soft and slightly distended with positive bowel sounds. She is tender to palpation throughout the lower abdomen. Mild guarding but no rebound tenderness. Skin: Warm and dry. Extremities: No cyanosis, clubbing, or edema. Radial and pedal pulses intact. Neurological: Alert. Cranial nerves 2-12 are grossly intact. No gross focal deficits to casual conversation. Psychiatric: Cooperative with appropriate mood and affect. H&P: Results Imaging CT scan - abdomen: Radiologist's impression: Redemonstration of a diverticular abscess, increasing in size and worsening in morphology within the deep pelvis with a clear window of access for percutaneous drainage which is recommended. Assessment and Plan Assessment and plan (1) Diverticulitis of intestine with perforation and abscess: Code(s): K57.80 - Diverticulitis of intestine, part unspecified, with perforation and abscess without bleeding Status: Acute (2) Hypertension: Code(s): I10 - Essential (primary) hypertension Status: Acute (3) Gastroesophageal reflux disease: Code(s): K21.9 - Gastro-esophageal reflux disease without esophagitis Status: Acute (4) Anxiety: Code(s): F41.9 - Anxiety disorder, unspecified Status: Acute Plan The patient is being directly admitted to the hospital from an outpatient setting for further treatment after she was found to have a diverticular abscess increasing in size with worsening morphology as detailed in HPI. Labs, imaging, EKG, and all reports were personally reviewed. She has been started on ceftriaxone and metronidazole per antibiotic stewardship recommendations. CT- guided drain biopsy ordered for tomorrow per IR. Continue bowel rest. Analgesics and antiemetics are available as needed. Blood pressures are stable. Check labs in a.m.. Her home medications will be reviewed and resumed as appropriate. Findings and treatment plan were discussed with the patient. Questions were solicited and answered to satisfaction. The patient's medical management will be taken over by the hospitalist team in a.m. Quality VTE Prophylaxis VTE prophylaxis: mechanical ordered If No VTE Prophylaxis Answer both mechanical and pharmacologic: Reason no pharmacologic proph: medical contraindication (procedure tomorrow) The patient has been admitted under observation status. Hospitalist [facility] Advance Care Plan I have confirmed that the patient's Advanced Care Plan is present, code status is documented, or surrogate decision maker is listed in patient medical record.: Yes Medication Reconciliation I have utilized all available resources to obtain, update and review the patients current medications (includes all prescriptions, OTC, herbals, cannabis, and nutritional supplements).: Yes
[2024-07-13 23:52] VITALS: PULSE 80
[2024-07-13] MEDS: ALPRAZolam (*CRX) 0.25 MG TABLET PO (23:52)
[2024-07-13] MEDS: METOPROLOL TARTRATE 50 MG TAB PO (23:52)
[2024-07-13] MEDS: metroNIDAZOLE 500 MG/ISO 100ML 500 MG/100 ML BAG 100 MG IVPB (23:52)
[2024-07-13] MEDS: AMITRIPTYLINE HCL 25 MG TABLET PO (23:52)
[2024-07-14] VITALS (17 sets, daily range): BP systolic 127–161; BP diastolic 65–88; PULSE 73–99; RESP 12–20; TEMP 36.6–37.2; O2SAT 96–100; BMI 25.3
[2024-07-14 05:44] LABS: Hematocrit 36.6 % (37.0-47.0); Hemoglobin 11.5 g/dL (12.0-15.0); Mean Corpuscular HGB Conc 31.4 g/dl (32-36); Mean Corpuscular Volume 95.6 fl (80-100); Mean Platelet Volume 9.4 fl (7.4-10.4); Platelet Count Result 485 k/mm3 (150-375); Red Blood Count 3.83 M/mm3 (4.2-5.4); Red Cell Distribution Width 12.6 % (11.5-14.5)
[2024-07-14 05:57] LABS: Anion Gap 9 mmol/L (4-12); Blood Urea Nitrogen 11 mg/dL (7-17); Calcium 8.7 mg/dL (8.4-10.2); Carbon Dioxide 27 mmol/L (22-30); Chloride 103 mmol/L (98-107); Estimated CRCL calculation 58 ml/min; Estimated Glomerular Filt Rate > 60; Glucose 93 mg/dL (65-110); Magnesium 2.1 mg/dL (1.6-2.3); Potassium 3.9 mmol/L (3.4-5.0); Sodium 139 mmol/L (137-145)
[2024-07-14 06:05] LABS: INR 1.3; Prothrombin Time 16.1 Seconds (11.1-14.7)
[2024-07-14 06:06] LABS: Partial Thromboplastin Time 28.7 Seconds (22.3-36.8)
[2024-07-14] MEDS: ONDANSETRON INJ 4 MG/2 ML VIAL IV PUSH (08:11)
[2024-07-14] MEDS: metroNIDAZOLE 500 MG/ISO 100ML 500 MG/100 ML BAG 100 MG IVPB ×3 (08:12→21:54)
--- NOTE | 2024-07-14 08:49 | P.PNIM_ITS ---
Progress Note: A&P Assessment and Plan (1) Diverticulitis of intestine with perforation and abscess: Code(s): K57.80 - Diverticulitis of intestine, part unspecified, with perforation and abscess without bleeding Status: Acute Assessment and Plan: Admitted to the hospital at the end of May 2024 with sigmoid diverticulitis with evidence of perforation on initial imaging. Repeat CT scan done 2 days thereafter showed a fluid and air collection in the right hemipelvis which did not appear large enough to be drained. Her exam improved, she was tolerating a diet, and she was able to be discharged home with oral antibiotics on 06/30/2024 antibiotics. - CT abdomen/pelvis showed redemonstration of a diverticular abscess, increasing in size and worsening in morphology within the deep pelvis with a clear window of access for percutaneous drainage - s/p pelvic abscess drainage with catheter placement on 07/[address] Flores - Gentle IV fluid resuscitation - Diet: clear liquid diet, advance as tolerated - Antibiotics: Rocephin and Flagyl started on 07/13 - Antiemetics and Analgesics - Monitor vital signs, I&Os, track stool output, watch for bloody stools, neuro status and patient is a fall risk - Monitor serum electrolytes and CBC (2) Hypertension: Code(s): I10 - Essential (primary) hypertension Status: Acute Assessment and Plan: Chronic, continue home medications - metoprolol 50 mg BID - blood pressures remain stable, continue to monitor (3) Gastroesophageal reflux disease: Code(s): K21.9 - Gastro-esophageal reflux disease without esophagitis Status: Acute Assessment and Plan: Chronic Started on Protonix 40 mg daily (4) Anxiety: Code(s): F41.9 - Anxiety disorder, unspecified Status: Acute Assessment and Plan: Chronic, continue home medications - xanax 0.25 mg BID and amitriptyline 25 mg daily Time Spent With Patient Time with patient: 25 - 35 minutes Subjective Date/time seen: 07/14/24 08:49 Interval history: 69-year-old female with hypertension, gastroesophageal reflux disease, and anxiety who is being directly admitted to the hospital from the outpatient setting after she was found to have an enlarging diverticular abscess on CT scan done as an outpatient. Patient is pleasant lying in bed. She has just returned from the drain placement with IR at time of assessment. She continues to endorse abdominal pain but this seems to be more related to the drain placement as she notes decreased pressure. She denies any chest pain, shortness of breath, palpitations, nausea and vomiting. Review of Systems Review of Systems: All systems reviewed & are unremarkable except as noted in HPI and below Exam Narrative: AF HR 79 RR 16 SpO2 100 BP 132/79 General: female in no acute respiratory distress who is nontoxic appearing, lying semi recumbent in bed. HEENT: Normocephalic. Atraumatic. Extraocular movement intact. Sclera clear and anicteric. No facial asymmetry. Chest: Lungs are clear to auscultation bilaterally. No wheezes or crackles. CV: Heart was regular rate and rhythm. Abd: Abdomen was soft. Tender to palpation. Nondistended. Positive bowel sounds. Drain in place with serosanguinous fluid. Ext: No clubbing, cyanosis, or edema. DP pulses bilaterally. Neuro: Patient is alert. Speech is clear. Objective Data Vital Signs Vital Signs: Vital Signs - 24 hr 07/13/24 18:24 07/13/24 20:00 07/13/24 20:03 Temperature 98.1 F 98.1 F Pulse Rate 78 88 Respiratory Rate 18 20 Blood Pressure 154/72 H 145/67 H Pulse Oximetry 100 96 Oxygen Delivery Room Air 07/13/24 23:52 07/14/24 05:25 07/14/24 07:40 Temperature 98.9 F 98.3 F Pulse Rate 80 98 90 Respiratory Rate 16 16 Blood Pressure 133/65 134/74 Pulse Oximetry 99 98 Oxygen Delivery Intake/Output Intake/Output: Intake & Output 07/11/24 07/12/24 07/13/24 07/14/24 23:59 23:59 23:59 23:59 Intake Total 150 Output Total 200 300 Balance -200 -150 Meds/Results Medications: Active Medications Generic Name Dose Route Start Last Admin Trade Name Freq PRN Reason Stop Dose Admin Acetaminophen 650 mg 07/13/24 23:09 Acetaminophen 325 Mg Tablet PO Q6H PRN Mild Pain (1-3) or Fever Hydrocodone Bitart/Acetaminophen 1 tab 07/13/24 23:07 Hydrocodone/Acetaminophen (*Crx) 5-325 Mg Tablet PO Q4H PRN Moderate Pain (4-6) Alprazolam 0.25 mg 07/13/24 23:15 07/13/24 23:52 Alprazolam (*Crx) 0.25 Mg Tablet PO 0.25 mg BID RAJESH Administration Amitriptyline HCl 25 mg 07/13/24 23:15 07/13/24 23:52 Amitriptyline Hcl 25 Mg Tablet PO 25 mg QHS RAJESH Administration Ceftriaxone Sodium 1 gm in 50 mls @ 100 mls/hr 07/13/24 20:00 07/14/24 08:11 Rocephin 1 Gm/Ns 50 Ml IVPB Infused Q24H RAJESH Infusion Metronidazole 500 mg in 100 mls @ 100 mls/hr 07/13/24 23:10 07/14/24 08:12 Flagyl 500 Mg/Iso Soln 100 Ml IVPB 100 mls/hr Q8H [facility] Administration Metoprolol Tartrate 50 mg 07/13/24 23:15 07/13/24 23:52 Metoprolol Tartrate 50 Mg Tab PO 50 mg Q12HR [facility] Administration Morphine Sulfate 2 mg 07/13/24 23:09 Morphine Sulfate (*Crx) 2 Mg/Ml Inj IV PUSH Q4H PRN Pain Rated 7-10 Ondansetron HCl 4 mg 07/13/24 23:09 07/14/24 08:11 Ondansetron Inj 4 Mg/2 Ml Vial IV PUSH 4 mg Q6H PRN Administration Nausea And Vomiting Labs Labs: Laboratory Results - last 24 hr 07/14/24 05:31 WBC 11.0 H RBC 3.83 L Hgb 11.5 L Hct 36.6 L MCV 95.6 MCH 30.0 MCHC 31.4 L RDW 12.6 Plt Count 485 H D MPV 9.4 PT 16.1 H INR 1.3 APTT 28.7 Sodium 139 Potassium 3.9 Chloride 103 Carbon Dioxide 27 Anion Gap 9 BUN 11 Creatinine 0.77 Estim Creat Clear Calc 58 Estimated GFR > 60 Glucose 93 Calcium 8.7 Magnesium 2.1 Quality VTE Prophylaxis VTE prophylaxis: mechanical ordered
[2024-07-14] MEDS: fentaNYL CITRATE INJ (*CRX) 100 MCG/2 ML VIAL IV PUSH (09:22)
[2024-07-14] MEDS: MIDAZOLAM HCL (*CRX) 2 MG/2 ML VIAL 1 MG IV PUSH (09:22)
--- NOTE | 2024-07-14 10:38 | WPDMODSED ---
Moderate Sedation Note-Pt Data Patient Data Diagnosis: diverticular abscess Present Complaint: lower abd pain Procedure to be performed/Plan: pelvic abscess drainage catheter placement Allergies Allergy/AdvReac Type Severity Reaction Status Date / Time Penicillins Allergy Unknown Unknown Verified 06/26/24 08:35 piperacillin Allergy Unknown Rash Verified 06/26/24 08:36 tazobactam Allergy Unknown Rash Verified 06/26/24 08:36 Home Medications ?Medication ?Instructions ?Recorded ?Confirmed ?Type alprazolam 0.25 mg tablet 0.25 mg PO BID 07/24/20 07/13/24 History amitriptyline 25 mg tablet 25 mg PO QHS 07/24/20 07/13/24 History metoprolol tartrate 50 mg tablet 50 mg PO BID 07/24/20 07/13/24 History hydrocodone 5 mg-acetaminophen 325 1 tablet PO Q4H PRN Moderate Pain 06/30/24 07/13/24 Rx mg tablet (4-6) #15 tabs Current Medications: Active Medications Acetaminophen (Acetaminophen 325 Mg Tablet) 650 mg PO Q6H PRN PRN Reason: Mild Pain (1-3) or Fever Hydrocodone Bitart/Acetaminophen (Hydrocodone/Acetaminophen (*Crx) 5-325 Mg Tablet) 1 tab PO Q4H PRN PRN Reason: Moderate Pain (4-6) Alprazolam (Alprazolam (*Crx) 0.25 Mg Tablet) 0.25 mg PO BID [facility] Last Admin: 07/13/24 23:52 Dose: 0.25 mg Amitriptyline HCl (Amitriptyline Hcl 25 Mg Tablet) 25 mg PO QHS [facility] Last Admin: 07/13/24 23:52 Dose: 25 mg Ceftriaxone Sodium (Rocephin 1 Gm/Ns 50 Ml) 1 gm in 50 mls @ 100 mls/hr IVPB Q24H [facility] Last Infusion: 07/14/24 08:11 Dose: Infused Metronidazole (Flagyl 500 Mg/Iso Soln 100 Ml) 500 mg in 100 mls @ 100 mls/hr IVPB Q8H [facility] Last Admin: 07/14/24 08:12 Dose: 100 mls/hr Metoprolol Tartrate (Metoprolol Tartrate 50 Mg Tab) 50 mg PO Q12HR [facility] Last Admin: 07/13/24 23:52 Dose: 50 mg Morphine Sulfate (Morphine Sulfate (*Crx) 2 Mg/Ml Inj) 2 mg IV PUSH Q4H PRN PRN Reason: Pain Rated 7-10 Ondansetron HCl (Ondansetron Inj 4 Mg/2 Ml Vial) 4 mg IV PUSH Q6H PRN PRN Reason: Nausea And Vomiting Last Admin: 07/14/24 08:11 Dose: 4 mg Pantoprazole Sodium (Pantoprazole 40 Mg Tablet) [address] [place] Sedation/Anesthesia: No previous sedation/anesthesia problems (including family history). [facility] Past Medical History Medical History (Updated 07/13/24 @ 23:07 by Shruthi Napier PA-C) Hypertension Anxiety Gastroesophageal reflux disease Diverticulitis (05/2024) Surgical History Surgical History (Updated 07/13/24 @ 23:04 by Shruthi Napier PA-C) History of partial hysterectomy History of bladder surgery Family History Family History Sibling Depression Family history of malignant neoplasm of uterus Family history of malignant neoplasm of breast in first degree relative Patient's sister is in good health Mother Family history of lung cancer Father Family history of congestive heart failure Family history of heart disease in male family member before age 55 Other Family history of cardiovascular disease Hypertension Social History Social History (Updated 07/13/24 @ 23:05 by Shruthi Napier PA-C) Social History: Surrogate medical decision maker: Wyatt Monzon, row[place]. Code status: Full code. Smoking status: Never smoker Alcohol intake: never Substance use: never Substance use type: does not use Do You Feel Safe in your Home?: Yes Lack of Transportation: No Lack of Food: Never True Current Housing: I Have Housing Concerned About Future Housing: No Difficulty Paying Gas/Electric Bills: No Difficulty Paying for Meds: No Currently Unemployed: No Education: Bachelor's Degree Difficulty w/ Childcare or Family Care: No Spiritual care concerns: No Mod Sed Physical Exam Physical Exam Pre Procedural Exam: Normal: Appearance, Throat, Lungs, Heart Rate and Heart Rhythm and Variation: Abdomen (lower abd TTP) Hours since solid foods: 12 Hours since liquid intake: 12 Mallampati Classification: class II Internal Medicine - PN: Obj Da Vital Signs Vital Signs: Vital Signs - 24 hr 07/13/24 18:24 07/13/24 20:00 07/13/24 20:03 Temperature 98.1 F 98.1 F Pulse Rate 78 88 Respiratory Rate 18 20 Blood Pressure 154/72 H 145/67 H Pulse Oximetry 100 96 Oxygen Delivery Room Air Oxygen Flow Rate 07/13/24 23:52 07/14/24 05:25 07/14/24 07:40 Temperature 98.9 F 98.3 F Pulse Rate 80 98 90 Respiratory Rate 16 16 Blood Pressure 133/65 134/74 Pulse Oximetry 99 98 Oxygen Delivery Oxygen Flow Rate 07/14/24 09:15 Temperature Pulse Rate 95 Respiratory Rate 20 Blood Pressure 147/88 H Pulse Oximetry 100 Oxygen Delivery Nasal Cannula Oxygen Flow Rate 2 Intake/Output Intake/Output: Intake & Output 07/11/24 07/12/24 07/13/24 07/14/24 23:59 23:59 23:59 23:59 Intake Total 150 Output Total 200 300 Balance -200 -150 Meds/Results Medications: Active Medications Generic Name Dose Route Start Last Admin Trade Name Freq PRN Reason Stop Dose Admin Acetaminophen 650 mg 07/13/24 23:09 Acetaminophen 325 Mg Tablet PO Q6H PRN Mild Pain (1-3) or Fever Hydrocodone Bitart/Acetaminophen 1 tab 07/13/24 23:07 Hydrocodone/Acetaminophen (*Crx) 5-325 Mg Tablet PO Q4H PRN Moderate Pain (4-6) Alprazolam 0.25 mg 07/13/24 23:15 07/13/24 23:52 Alprazolam (*Crx) 0.25 Mg Tablet PO 0.25 mg BID RAJESH Administration Amitriptyline HCl 25 mg 07/13/24 23:15 07/13/24 23:52 Amitriptyline Hcl 25 Mg Tablet PO 25 mg QHS RAJESH Administration Ceftriaxone Sodium 1 gm in 50 mls @ 100 mls/hr 07/13/24 20:00 07/14/24 08:11 Rocephin 1 Gm/Ns 50 Ml IVPB Infused Q24H RAJESH Infusion Metronidazole 500 mg in 100 mls @ 100 mls/hr 07/13/24 23:10 07/14/24 08:12 Flagyl 500 Mg/Iso Soln 100 Ml IVPB 100 mls/hr Q8H RAJESH Administration Metoprolol Tartrate 50 mg 07/13/24 23:15 07/13/24 23:52 Metoprolol Tartrate 50 Mg Tab PO 50 mg Q12HR RAJESH Administration Morphine Sulfate 2 mg 07/13/24 23:09 Morphine Sulfate (*Crx) 2 Mg/Ml Inj IV PUSH Q4H PRN Pain Rated 7-10 Ondansetron HCl 4 mg 07/13/24 23:09 07/14/24 08:11 Ondansetron Inj 4 Mg/2 Ml Vial IV PUSH 4 mg Q6H PRN Administration Nausea And Vomiting Pantoprazole Sodium 40 mg 07/15/24 09:00 Pantoprazole 40 Mg Tablet PO QAM [facility] Labs 07/14/24 05:31 07/14/24 05:31 Labs: Laboratory Results - last 24 hr 07/14/24 05:31 WBC 11.0 H RBC 3.83 L Hgb 11.5 L Hct 36.6 L MCV 95.6 MCH 30.0 MCHC 31.4 L RDW 12.6 Plt Count 485 H D MPV 9.4 PT 16.1 H INR 1.3 APTT 28.7 Sodium 139 Potassium 3.9 Chloride 103 Carbon Dioxide 27 Anion Gap 9 BUN 11 Creatinine 0.77 Estim Creat Clear Calc 58 Estimated GFR > 60 Glucose 93 Calcium 8.7 Magnesium 2.1 ASA Classification/Sedation ASA Classification/Sedation ASA Class: II Emergent: No Risks: Risks, benefits and alternatives explained and patient/family accepted plan for sedation. Patient re-evaluated immediately prior to sedation.
[2024-07-14] MEDS: HYDROcodone/acetaminophen (*CRX) 5-325 MG TABLET 1 TAB PO ×2 (10:52→16:12)
[2024-07-14] MEDS: ALPRAZolam (*CRX) 0.25 MG TABLET PO ×2 (10:53→16:11)
[2024-07-14] MEDS: METOPROLOL TARTRATE 50 MG TAB PO ×2 (10:53→20:44)
--- NOTE | 2024-07-14 10:59 | P.CONGS_ITS ---
Assessment and Plan Assessment and plan (1) Diverticulitis of intestine with perforation and abscess: Code(s): K57.80 - Diverticulitis of intestine, part unspecified, with perforation and abscess without bleeding Status: Acute Assessment and Plan: patient got CT-guided percutaneous drainage her diverticular abscess this morning, continue IV antibiotics, start clear liquid diet, continue serial exams and labs History of Present Illness Consult details Consult date: 07/14/24 Reason for consult: abdominal pain Requesting physician: Jacob Lr MD Narrative: The patient is a 69-year-old female well known to our service from previous admission for perforated diverticulitis. The patient was directly admitted last night for continued lower abdominal pain, malaise, anorexia. The patient was discharged in early June with p.o. antibiotics. She reports that since being discharged she has continued to have severe discomfort in her lower abdomen. She also reports low-grade fevers, nausea, poor appetite, generalized malaise. Repeat CT scan as an outpatient earlier this week showed interval enlargement of her diverticular abscess. Given these findings, the patient was told to return to the hospital for further workup and treatment. Review of Systems 2 Review of Systems: All systems reviewed & are unremarkable except as noted in HPI and below PMFSH Past Medical History Medical History Hypertension Anxiety Gastroesophageal reflux disease Diverticulitis (05/2024) Surgical History Surgical History History of partial hysterectomy History of bladder surgery Family History Family History Sibling Depression Family history of malignant neoplasm of uterus Family history of malignant neoplasm of breast in first degree relative Patient's sister is in good health Mother Family history of lung cancer Father Family history of congestive heart failure Family history of heart disease in male family member before age 55 Other Family history of cardiovascular disease Hypertension Social History Social History Social History: Surrogate medical decision maker: Wyatt Monzon, [place]. Code status: Full code. Smoking status: Never smoker Alcohol intake: never Substance use: never Substance use type: does not use Do You Feel Safe in your Home?: Yes Lack of Transportation: No Lack of Food: Never True Current Housing: I Have Housing Concerned About Future Housing: No Difficulty Paying Gas/Electric Bills: No Difficulty Paying for Meds: No Currently Unemployed: No Education: Bachelor's Degree Difficulty w/ Childcare or Family Care: No Spiritual care concerns: No Meds Home Medications and Allergies Home Medications ?Medication ?Instructions ?Recorded ?Confirmed ?Type alprazolam 0.25 mg tablet 0.25 mg PO BID 07/24/20 07/13/24 History amitriptyline 25 mg tablet 25 mg PO QHS 07/24/20 07/13/24 History metoprolol tartrate 50 mg tablet 50 mg PO BID 07/24/20 07/13/24 History hydrocodone 5 mg-acetaminophen 325 1 tablet PO Q4H PRN Moderate Pain 06/30/24 07/13/24 Rx mg tablet (4-6) #15 tabs Allergies Allergy/AdvReac Type Severity Reaction Status Date / Time Penicillins Allergy Unknown Unknown Verified 06/26/24 08:35 piperacillin Allergy Unknown Rash Verified 06/26/24 08:36 tazobactam Allergy Unknown Rash Verified 06/26/24 08:36 Vital Signs Vital Signs - 24 hr 07/13/24 18:24 07/13/24 20:00 07/13/24 20:03 Temperature 36.7 C 36.7 C Pulse Rate 78 88 Respiratory Rate 18 20 Blood Pressure 154/72 H 145/67 H Pulse Oximetry 100 96 Oxygen Delivery Room Air Oxygen Flow Rate 07/13/24 23:52 07/14/24 05:25 07/14/24 07:40 Temperature 37.2 C 36.8 C Pulse Rate 80 98 90 Respiratory Rate 16 16 Blood Pressure 133/65 134/74 Pulse Oximetry 99 98 Oxygen Delivery Oxygen Flow Rate 07/14/24 09:15 07/14/24 09:20 07/14/24 09:25 Temperature Pulse Rate 95 97 91 Respiratory Rate 20 17 16 Blood Pressure 147/88 H 133/78 142/78 H Pulse Oximetry 100 100 100 Oxygen Delivery Nasal Cannula Nasal Cannula Nasal Cannula Oxygen Flow Rate 2 2 2 07/14/24 09:30 07/14/24 09:35 07/14/24 09:40 Temperature Pulse Rate 95 92 91 Respiratory Rate 14 12 14 Blood Pressure 144/80 H 139/76 138/84 Pulse Oximetry 100 100 100 Oxygen Delivery Nasal Cannula Nasal Cannula Nasal Cannula Oxygen Flow Rate 2 2 2 07/14/24 09:45 07/14/24 09:50 07/14/24 09:55 Temperature Pulse Rate 91 99 90 Respiratory Rate 16 15 15 Blood Pressure 141/76 H 148/79 H 152/81 H Pulse Oximetry 100 100 100 Oxygen Delivery Nasal Cannula Nasal Cannula Nasal Cannula Oxygen Flow Rate 2 2 2 07/14/24 10:00 07/14/24 10:53 Temperature Pulse Rate 87 92 Respiratory Rate 16 Blood Pressure 161/78 H Pulse Oximetry 100 Oxygen Delivery Room Air Oxygen Flow Rate Exam 2 Const: General: cooperative, no acute distress and uncomfortable HENMT: Head: normal to inspection, normocephalic and atraumatic Eyes: General: appearance normal, both eyes and all related structures Neck: Neck: normal visual inspection, full ROM and no lymphadenopathy Resp: Auscultation: clear to auscultation bilaterally Cardio: Rate: regular rate Rhythm: regular rhythm GI: Inspection: normal to inspection and distended GI Palp: Yes abdominal tenderness, Yes Soft to palpation, Yes Tenderness to palpation present (GI), No Guarding due to palpation present (GI) and No Rigid due to palpation Other: perc drain c s/s fluid Skin: General skin exam: normal color and no rashes or lesions noted Neuro: General: patient oriented x3 and CN's II-XI intact bilaterally Extrem: General: normal to inspection and full ROM Results Labs 07/14/24 05:31 07/14/24 05:31 Labs: Abnormal lab results 07/14/24 Range/Units 05:31 WBC 11.0 H (4.5-10.0) K/mm3 RBC 3.83 L (4.2-5.4) M/mm3 Hgb 11.5 L (12.0-15.0) g/dL Hct 36.6 L (37.0-47.0) % MCHC 31.4 L (32-36) g/dl Plt Count 485 H D (150-375) k/mm3 PT 16.1 H (11.1-14.7) Seconds Diabetes panel 07/14/24 Range/Units 05:31 Sodium 139 (137-145) mmol/L Potassium 3.9 (3.4-5.0) mmol/L Chloride 103 (98-107) mmol/L Carbon Dioxide 27 (22-30) mmol/L BUN 11 (7-17) mg/dL Creatinine 0.77 (0.7-1.0) mg/dL Glucose 93 (65-110) mg/dL Calcium 8.7 (8.4-10.2) mg/dL Calcium panel 07/14/24 Range/Units 05:31 Calcium 8.7 (8.4-10.2) mg/dL Pituitary panel 07/14/24 Range/Units 05:31 Sodium 139 (137-145) mmol/L Potassium 3.9 (3.4-5.0) mmol/L Chloride 103 (98-107) mmol/L Carbon Dioxide 27 (22-30) mmol/L BUN 11 (7-17) mg/dL Creatinine 0.77 (0.7-1.0) mg/dL Glucose 93 (65-110) mg/dL Calcium 8.7 (8.4-10.2) mg/dL Adrenal panel 07/14/24 Range/Units 05:31 Sodium 139 (137-145) mmol/L Potassium 3.9 (3.4-5.0) mmol/L Chloride 103 (98-107) mmol/L Carbon Dioxide 27 (22-30) mmol/L BUN 11 (7-17) mg/dL Creatinine 0.77 (0.7-1.0) mg/dL Glucose 93 (65-110) mg/dL Calcium 8.7 (8.4-10.2) mg/dL All other labs normal. Imaging Abdomen CT scan report/results: report reviewed and image reviewed
[2024-07-14] MEDS: AMITRIPTYLINE HCL 25 MG TABLET PO (20:44)
[2024-07-15 06:00] VITALS: BP 126/71; PULSE 95; RESP 18; TEMP 37.2; O2SAT 94
[2024-07-15] MEDS: metroNIDAZOLE 500 MG/ISO 100ML 500 MG/100 ML BAG 100 MG IVPB (06:54)
[2024-07-15 08:38] VITALS: PULSE 95
[2024-07-15] MEDS: METOPROLOL TARTRATE 50 MG TAB PO ×2 (08:38→20:33)
[2024-07-15] MEDS: PANTOPRAZOLE 40 MG TABLET PO (08:38)
[2024-07-15 09:08] LABS: Basophils Percent Auto 0.3 % (0.2-1.2); Eosinophils Percent Auto 0.3 % (0-4.4); Hematocrit 35.7 % (37.0-47.0); Hemoglobin 11.4 g/dL (12.0-15.0); Immature Granulocyte Absolute 0.07 K/mm3 (0.00-0.031); Immature Granulocyte Percent A 0.6 % (0-0.5); Lymphocytes Absolute Auto 1.84 K/mm3 (0.9-3.2); Lymphocytes Percent Auto 15.3 % (18.3-44.2); Mean Corpuscular HGB Conc 31.9 g/dl (32-36); Mean Corpuscular Hemoglobin 30.2 pg (26-34); Mean Corpuscular Volume 94.4 fl (80-100); Mean Platelet Volume 9.4 fl (7.4-10.4); Monocytes Absolute Auto 0.9 K/mm3 (0.1-0.6); Monocytes Percent Auto 7.6 % (2.6-8.5); Neutrophils Absolute Auto 9.1 K/mm3 (1.3-6.7); Neutrophils Percent Auto 75.9 % (45.5-73.1); Platelet Count Result 456 k/mm3 (150-375); Red Blood Count 3.78 M/mm3 (4.2-5.4); Red Cell Distribution Width 12.6 % (11.5-14.5)
[2024-07-15 09:22] LABS: Alanine Aminotransferase 12 U/L (6-35); Albumin Level 3.4 g/dL (3.5-5.1); Alkaline Phosphatase 58 U/L (38-126); Anion Gap 12 mmol/L (4-12); Aspartate Amino Transferase 27 U/L (14-36); Bilirubin,Total 0.5 mg/dL (0.2-1.3); Blood Urea Nitrogen 13 mg/dL (7-17); Calcium 8.6 mg/dL (8.4-10.2); Carbon Dioxide 22 mmol/L (22-30); Chloride 104 mmol/L (98-107); Estimated CRCL calculation 61 ml/min; Estimated Glomerular Filt Rate > 60; Glucose 108 mg/dL (65-110); Potassium 3.3 mmol/L (3.4-5.0); Sodium 138 mmol/L (137-145)
--- NOTE | 2024-07-15 09:27 | P.PNIM_ITS ---
Progress Note: A&P Assessment and Plan (1) Diverticulitis of intestine with perforation and abscess: Code(s): K57.80 - Diverticulitis of intestine, part unspecified, with perforation and abscess without bleeding Status: Acute Assessment and Plan: Admitted to the hospital at the end of May 2024 with sigmoid diverticulitis with evidence of perforation on initial imaging. Repeat CT scan done 2 days thereafter showed a fluid and air collection in the right hemipelvis which did not appear large enough to be drained. Her exam improved, she was tolerating a diet, and she was able to be discharged home with oral antibiotics on 06/30/2024 antibiotics. - CT abdomen/pelvis showed redemonstration of a diverticular abscess, increasing in size and worsening in morphology within the deep pelvis with a clear window of access for percutaneous drainage - s/p pelvic abscess drainage with catheter placement on 07/[address] Flores - Diet: full liquid diet, advance as tolerated Patient endorsing poor oral intake secondary to diarrhea - Antibiotics: Rocephin and Flagyl started on 07/13 developed diarrhea, transitioned to moxifloxacin on 07/15 given allergies - Analgesics - Monitor vital signs, I&Os, track stool output, watch for bloody stools, neuro status and patient is a fall risk - Monitor serum electrolytes and CBC (2) Hypertension: Code(s): I10 - Essential (primary) hypertension Status: Acute Assessment and Plan: Chronic, continue home medications - metoprolol 50 mg BID - blood pressures remain stable, continue to monitor (3) Gastroesophageal reflux disease: Code(s): K21.9 - Gastro-esophageal reflux disease without esophagitis Status: Acute Assessment and Plan: Chronic Started on Protonix 40 mg daily (4) Anxiety: Code(s): F41.9 - Anxiety disorder, unspecified Status: Acute Assessment and Plan: Chronic, continue home medications - xanax 0.25 mg BID and amitriptyline 25 mg daily Time Spent With Patient Time with patient: 25 - 35 minutes Subjective Date/time seen: 07/15/24 09:27 Interval history: 69-year-old female with hypertension, gastroesophageal reflux disease, and anxiety who is being directly admitted to the hospital from the outpatient setting after she was found to have an enlarging diverticular abscess on CT scan done as an outpatient. Patient is pleasant lying in bed. She endorses diarrhea that she related to her Flagyl medication and refuses to take this medication moving forward. Transitioned to moxifloxacin per surgery. She notes continued abdominal pain more so around the drain insertion site and nausea though this has improved since admission. She has no other complaints denying chest pain, shortness of breath and palpitations. Review of Systems Review of Systems: All systems reviewed & are unremarkable except as noted in HPI and below Exam Narrative: AF HR 100 RR 16 Spo2 98 BP 148/75 General: female in no acute respiratory distress who is nontoxic appearing, lying semi recumbent in bed. HEENT: Normocephalic. Atraumatic. Extraocular movement intact. Sclera clear and anicteric. No facial asymmetry. Chest: Lungs are clear to auscultation bilaterally. No wheezes or crackles. CV: Heart was regular rate and rhythm. Abd: Abdomen was soft. Tender to palpation. Nondistended. Positive bowel sounds. Drain in place with serosanguineous fluid. Ext: No clubbing, cyanosis, or edema. DP pulses bilaterally. Neuro: Patient is alert. Speech is clear. Objective Data Vital Signs Vital Signs: Vital Signs - 24 hr 07/14/24 09:30 07/14/24 09:35 07/14/24 09:40 Temperature Pulse Rate 95 92 91 Respiratory Rate 14 12 14 Blood Pressure 144/80 H 139/76 138/84 Pulse Oximetry 100 100 100 Oxygen Delivery Nasal Cannula Nasal Cannula Nasal Cannula Oxygen Flow Rate 2 2 2 07/14/24 09:45 07/14/24 09:50 07/14/24 09:55 Temperature Pulse Rate 91 99 90 Respiratory Rate 16 15 15 Blood Pressure 141/76 H 148/79 H 152/81 H Pulse Oximetry 100 100 100 Oxygen Delivery Nasal Cannula Nasal Cannula Nasal Cannula Oxygen Flow Rate 2 2 2 07/14/24 10:00 07/14/24 10:53 07/14/24 14:00 Temperature 97.8 F Pulse Rate 87 92 73 Respiratory Rate 16 16 Blood Pressure 161/78 H 132/79 Pulse Oximetry 100 100 Oxygen Delivery Room Air Oxygen Flow Rate 07/14/24 15:03 07/14/24 20:44 07/14/24 22:00 Temperature 98.3 F 98.2 F Pulse Rate 83 80 94 Respiratory Rate 16 18 Blood Pressure 135/70 127/70 Pulse Oximetry 96 98 Oxygen Delivery Oxygen Flow Rate 07/15/24 06:00 07/15/24 08:38 Temperature 98.9 F Pulse Rate 95 95 Respiratory Rate 18 Blood Pressure 126/71 Pulse Oximetry 94 Oxygen Delivery Oxygen Flow Rate Intake/Output Intake/Output: Intake & Output 07/12/24 07/13/24 07/14/24 07/15/24 23:59 23:59 23:59 23:59 Intake Total 1170 Output Total 200 300 600 Balance -200 870 -600 Meds/Results Medications: Active Medications Generic Name Dose Route Start Last Admin Trade Name Freq PRN Reason Stop Dose Admin Acetaminophen 650 mg 07/13/24 23:09 Acetaminophen 325 Mg Tablet PO Q6H PRN Mild Pain (1-3) or Fever Hydrocodone Bitart/Acetaminophen 1 tab 07/13/24 23:07 07/14/24 16:12 Hydrocodone/Acetaminophen (*Crx) 5-325 Mg Tablet PO 1 tab Q4H PRN Administration Moderate Pain (4-6) Alprazolam 0.5 mg 07/15/24 00:55 Alprazolam (*Crx) 0.5 Mg Tablet PO HS PRN sleep Amitriptyline HCl 25 mg 07/13/24 23:15 07/14/24 20:44 Amitriptyline Hcl 25 Mg Tablet PO 25 mg QHS RAJESH Administration Ceftriaxone Sodium 1 gm in 50 mls @ 100 mls/hr 07/13/24 20:00 07/14/24 21:15 Rocephin 1 Gm/Ns 50 Ml IVPB Infused Q24H RAJESH Infusion Metronidazole 500 mg in 100 mls @ 100 mls/hr 07/13/24 23:10 07/15/24 06:54 Flagyl 500 Mg/Iso Soln 100 Ml IVPB 100 mls/hr Q8H RAJESH Administration Metoprolol Tartrate 50 mg 07/13/24 23:15 07/15/24 08:38 Metoprolol Tartrate 50 Mg Tab PO 50 mg Q12HR RAJESH Administration Morphine Sulfate 2 mg 07/13/24 23:09 Morphine Sulfate (*Crx) 2 Mg/Ml Inj IV PUSH Q4H PRN Pain Rated 7-10 Ondansetron HCl 4 mg 07/13/24 23:09 07/14/24 08:11 Ondansetron Inj 4 Mg/2 Ml Vial IV PUSH 4 mg Q6H PRN Administration Nausea And Vomiting Pantoprazole Sodium 40 mg 07/15/24 09:00 07/15/24 08:38 Pantoprazole 40 Mg Tablet PO 40 mg QAM RAJESH Administration Radiology Results: ITS Impressions Catheter Placement CT 07/14/24 10:34 IMPRESSION: 1. Successful CT-guided pelvic abscess drainage catheter placement. 2. 40 mL fluid was sent for aerobic and anaerobic cultures. 3. The catheter will be managed by Dr. Pinon. Labs Labs: Laboratory Results - last 24 hr 07/15/24 09:00 WBC 12.0 H RBC 3.78 L Hgb 11.4 L Hct 35.7 L MCV 94.4 MCH 30.2 MCHC 31.9 L RDW 12.6 Plt Count 456 H MPV 9.4 Immature Gran % (Auto) 0.6 H Neut % (Auto) 75.9 H Lymph % (Auto) 15.3 L [place] % (Auto) 7.6 Eos % (Auto) 0.3 Baso % (Auto) 0.3 Lymph # (Auto) 1.84 [place] # (Auto) 0.9 H Eos # (Auto) 0.0 Baso # (Auto) 0.0 Abs Immat Gran (auto) 0.07 H Absolute Neuts (auto) 9.1 H Absolute Nucleated RBC 0.000 Nucleated RBC % 0.0 Sodium 138 Potassium 3.3 L Chloride 104 Carbon Dioxide 22 Anion Gap 12 BUN 13 Creatinine 0.72 Estim Creat Clear Calc 61 Estimated GFR > 60 Glucose 108 Calcium 8.6 Total Bilirubin 0.5 AST 27 ALT 12 Alkaline Phosphatase 58 Total Protein 7.0 Albumin 3.4 L Quality VTE Prophylaxis VTE prophylaxis: mechanical ordered
--- NOTE | 2024-07-15 10:30 | P.PNGS_ITS ---
Progress Note: A&P Assessment and Plan (1) Diverticulitis of intestine with perforation and abscess: Qualifiers: Diverticulitis site: large intestine Diverticulitis bleeding: without bleeding Qualified Code(s): K57.20 - Diverticulitis of large intestine with perforation and abscess without bleeding Code(s): K57.80 - Diverticulitis of intestine, part unspecified, with perforation and abscess without bleeding Status: Acute Assessment and Plan: * Patient refusing Flagyl. Will stop ceftriaxone an metronidazole and start oral moxifloxacin. * Continue monitoring drain output and await culture results. * Advanced to full liquid diet. (2) Hypertension: Qualifiers: Hypertension type: primary hypertension Qualified Code(s): I10 - Essential (primary) hypertension Code(s): I10 - Essential (primary) hypertension Status: Acute (3) Anxiety: Code(s): F41.9 - Anxiety disorder, unspecified Status: Acute Subjective Subjective Date/Time Seen: 07/15/24 10:30 Interval history: Patient states that she cannot tolerate the metronidazole and she is having significant diarrhea. She has a penicillin and periprocedural an allergy therefore cannot be placed Augmentin or Zosyn. Her pain is improved from admission. She is mostly only having pain at the drain site at this time. Exam GI: Inspection: non-distended and other (Pigtail drain with scant bloody drainage) GI Palp: Yes Soft to palpation, Yes Tenderness to palpation present (GI) (Suprapubic region near drain exit site), No Guarding due to palpation present (GI) and No Rebound tenderness present Auscultation: normal bowel sounds Objective Data Vital Signs Vital Signs: Vital Signs - 24 hr 07/14/24 10:53 07/14/24 14:00 07/14/24 15:03 Temperature 97.8 F 98.3 F Pulse Rate 92 73 83 Respiratory Rate 16 16 Blood Pressure 132/79 135/70 Pulse Oximetry 100 96 07/14/24 20:44 07/14/24 22:00 07/15/24 06:00 Temperature 98.2 F 98.9 F Pulse Rate 80 94 95 Respiratory Rate 18 18 Blood Pressure 127/70 126/71 Pulse Oximetry 98 94 07/15/24 08:38 Temperature Pulse Rate 95 Respiratory Rate Blood Pressure Pulse Oximetry Intake/Output Intake/Output: Intake & Output 04/1607/13/24 07/14/24 07/15/24 23:59 23:59 23:59 23:59 Intake Total 1170 210 Output Total 200 300 600 Balance -200 870 -390 Meds/Results Medications: Active Medications Generic Name Dose Route Start Last Admin Trade Name Freq PRN Reason Stop Dose Admin Acetaminophen 650 mg 07/13/24 23:09 Acetaminophen 325 Mg Tablet PO Q6H PRN Mild Pain (1-3) or Fever Hydrocodone Bitart/Acetaminophen 1 tab 07/13/24 23:07 07/14/24 16:12 Hydrocodone/Acetaminophen (*Crx) 5-325 Mg Tablet PO 1 tab Q4H PRN Administration Moderate Pain (4-6) Alprazolam 0.5 mg 07/15/24 00:55 Alprazolam (*Crx) 0.5 Mg Tablet PO HS PRN sleep Amitriptyline HCl 25 mg 07/13/24 23:15 07/14/24 20:44 Amitriptyline Hcl 25 Mg Tablet PO 25 mg QHS RAJESH Administration Metoprolol Tartrate 50 mg 07/13/24 23:15 07/15/24 08:38 Metoprolol Tartrate 50 Mg Tab PO 50 mg Q12HR RAJESH Administration Morphine Sulfate 2 mg 07/13/24 23:09 Morphine Sulfate (*Crx) 2 Mg/Ml Inj IV PUSH Q4H PRN Pain Rated 7-10 Moxifloxacin HCl 400 mg 07/15/24 10:30 Moxifloxacin Hcl 400 Mg Tablet PO QAM RAJESH Pantoprazole Sodium 40 mg 07/15/24 09:00 07/15/24 08:38 Pantoprazole 40 Mg Tablet PO 40 mg QAM RAJESH Administration Radiology Results: ITS Impressions Catheter Placement CT 07/14/24 10:34 IMPRESSION: 1. Successful CT-guided pelvic abscess drainage catheter placement. 2. 40 mL fluid was sent for aerobic and anaerobic cultures. 3. The catheter will be managed by Dr. Pinon. Labs Labs: Laboratory Results - last 24 hr 07/15/24 09:00 WBC 12.0 H RBC 3.78 L Hgb 11.4 L Hct 35.7 L MCV 94.4 MCH 30.2 MCHC 31.9 L RDW 12.6 Plt Count 456 H MPV 9.4 Immature Gran % (Auto) 0.6 H Neut % (Auto) 75.9 H Lymph % (Auto) 15.3 L [place] % (Auto) 7.6 Eos % (Auto) 0.3 Baso % (Auto) 0.3 Lymph # (Auto) 1.84 [place] # (Auto) 0.9 H Eos # (Auto) 0.0 Baso # (Auto) 0.0 Abs Immat Gran (auto) 0.07 H Absolute Neuts (auto) 9.1 H Absolute Nucleated RBC 0.000 Nucleated RBC % 0.0 Sodium 138 Potassium 3.3 L Chloride 104 Carbon Dioxide 22 Anion Gap 12 BUN 13 Creatinine 0.72 Estim Creat Clear Calc 61 Estimated GFR > 60 Glucose 108 Calcium 8.6 Total Bilirubin 0.5 AST 27 ALT 12 Alkaline Phosphatase 58 Total Protein 7.0 Albumin 3.4 L
[2024-07-15 10:51] LABS: Glucose Point of Care 102 mg/dl (65-105)
[2024-07-15] MEDS: MOXIFLOXACIN HCL 400 MG TABLET PO (11:17)
[2024-07-15] MEDS: SACCHAROMYCES BOULARDII 250 MG CAPSULE PO ×2 (12:09→17:07)
[2024-07-15 14:00] VITALS: BP 148/75; PULSE 100; RESP 16; TEMP 36.7; O2SAT 98
[2024-07-15] MEDS: ALPRAZolam (*CRX) 0.5 MG TABLET PO (17:06)
[2024-07-15 20:00] VITALS: PULSE 107; RESP 16; O2SAT 100
[2024-07-15] MEDS: AMITRIPTYLINE HCL 25 MG TABLET PO (20:33)
[2024-07-15 21:19] VITALS: BP 147/86; PULSE 107; RESP 16; TEMP 37.5; O2SAT 100
[2024-07-16 04:50] LABS: Hematocrit 36.8 % (37.0-47.0); Mean Corpuscular HGB Conc 32.6 g/dl (32-36); Mean Corpuscular Hemoglobin 30.5 pg (26-34); Mean Corpuscular Volume 93.4 fl (80-100); Mean Platelet Volume 9.3 fl (7.4-10.4); Platelet Count Result 474 k/mm3 (150-375); Red Blood Count 3.94 M/mm3 (4.2-5.4); Red Cell Distribution Width 12.5 % (11.5-14.5); White Blood Count 11.5 K/mm3 (4.5-10.0)
[2024-07-16 06:00] VITALS: BP 149/84; PULSE 98; RESP 16; TEMP 36.8; O2SAT 98
--- NOTE | 2024-07-16 07:35 | P.PNIM_ITS ---
Progress Note: A&P Assessment and Plan (1) Diverticulitis of intestine with perforation and abscess: Qualifiers: Diverticulitis bleeding: without bleeding Diverticulitis site: large intestine Qualified Code(s): K57.20 - Diverticulitis of large intestine with perforation and abscess without bleeding Code(s): K57.80 - Diverticulitis of intestine, part unspecified, with perforation and abscess without bleeding Status: Acute Assessment and Plan: Admitted to the hospital at the end of May 2024 with sigmoid diverticulitis with evidence of perforation on initial imaging. Repeat CT scan done 2 days thereafter showed a fluid and air collection in the right hemipelvis which did not appear large enough to be drained. Her exam improved, she was tolerating a diet, and she was able to be discharged home with oral antibiotics on 06/30/2024 antibiotics. - CT abdomen/pelvis showed redemonstration of a diverticular abscess, increasing in size and worsening in morphology within the deep pelvis with a clear window of access for percutaneous drainage - s/p pelvic abscess drainage with catheter placement on 07/[address] Flores Drain continues to have serosang discharge. - Diet: advanced to low fiber diet - Antibiotics: Rocephin and Flagyl started on 07/13 developed diarrhea, transitioned to moxifloxacin on 07/15 given allergies - Analgesics - Monitor vital signs, I&Os, track stool output, watch for bloody stools, neuro status and patient is a fall risk - Monitor serum electrolytes and CBC (2) Hypertension: Qualifiers: Hypertension type: primary hypertension Qualified Code(s): I10 - Essential (primary) hypertension Code(s): I10 - Essential (primary) hypertension Status: Acute Assessment and Plan: Chronic, continue home medications - metoprolol 50 mg BID - blood pressures remain stable, continue to monitor (3) Gastroesophageal reflux disease: Code(s): K21.9 - Gastro-esophageal reflux disease without esophagitis Status: Acute Assessment and Plan: Chronic Started on Protonix 40 mg daily (4) Anxiety: Code(s): F41.9 - Anxiety disorder, unspecified Status: Acute Assessment and Plan: Chronic, continue home medications - xanax 0.25 mg BID and amitriptyline 25 mg daily Time Spent With Patient Time with patient: 25 - 35 minutes Subjective Date/time seen: 07/16/24 07:35 Interval history: 69-year-old female with hypertension, gastroesophageal reflux disease, and anxiety who is being directly admitted to the hospital from the outpatient setting after she was found to have an enlarging diverticular abscess on CT scan done as an outpatient. Patient is pleasant lying comfortably in bed. She continues to endorse abdominal pain more so related to the drain insertion site but states this continues to improve. She continues to have slight diarrhea but also notes much improvement compared to yesterday. She is tolerating a full liquid diet and will be advanced to a low-fiber diet today. She has no other complaints denying chest pain, palpitations, shortness of breath, nausea vomiting. Review of Systems Review of Systems: All systems reviewed & are unremarkable except as noted in HPI and below Exam Narrative: AF HR 80 RR 16 Spo2 98 BP 149/84 General: female in no acute respiratory distress who is nontoxic appearing, lying semi recumbent in bed. HEENT: Normocephalic. Atraumatic. Extraocular movement intact. Sclera clear and anicteric. No facial asymmetry. Chest: Lungs are clear to auscultation bilaterally. No wheezes or crackles. CV: Heart was regular rate and rhythm. Abd: Abdomen was soft. Tender to palpation. Nondistended. Positive bowel sounds. Drain in place with serosanguineous drainage. Ext: No clubbing, cyanosis, or edema. DP pulses bilaterally. Neuro: Patient is alert. Speech is clear. Objective Data Vital Signs Vital Signs: Vital Signs - 24 hr 07/15/24 08:38 07/15/24 08:40 07/15/24 14:00 Temperature 98.0 F Pulse Rate 95 100 Respiratory Rate 16 Blood Pressure 148/75 H Pulse Oximetry 98 Oxygen Delivery Room Air 07/15/24 20:00 07/15/24 21:19 07/16/24 06:00 Temperature 99.5 F 98.3 F Pulse Rate 107 H 107 H 98 Respiratory Rate 16 16 16 Blood Pressure 147/86 H 149/84 H Pulse Oximetry 100 100 98 Oxygen Delivery Room Air Intake/Output Intake/Output: Intake & Output 07/13/24 07/14/24 07/15/24 07/16/24 23:59 23:59 23:59 23:59 Intake Total 1170 560 200 Output Total 200 300 600 Balance -200 870 -40 200 Meds/Results Medications: Active Medications Generic Name Dose Route Start Last Admin Trade Name Freq PRN Reason Stop Dose Admin Acetaminophen 650 mg 07/13/24 23:09 Acetaminophen 325 Mg Tablet PO Q6H PRN Mild Pain (1-3) or Fever Hydrocodone Bitart/Acetaminophen 1 tab 07/13/24 23:07 07/14/24 16:12 Hydrocodone/Acetaminophen (*Crx) 5-325 Mg Tablet PO 1 tab Q4H PRN Administration Moderate Pain (4-6) Alprazolam 0.25 mg 07/16/24 07:25 Alprazolam (*Crx) 0.25 Mg Tablet PO BID PRN Anxiety Amitriptyline HCl 25 mg 07/13/24 23:15 07/15/24 20:33 Amitriptyline Hcl 25 Mg Tablet PO 25 mg QHS RAJESH Administration Metoprolol Tartrate 50 mg 07/13/24 23:15 07/15/24 20:33 Metoprolol Tartrate 50 Mg Tab PO 50 mg Q12HR RAJESH Administration Morphine Sulfate 2 mg 07/13/24 23:09 Morphine Sulfate (*Crx) 2 Mg/Ml Inj IV PUSH Q4H PRN Pain Rated 7-10 Moxifloxacin HCl 400 mg 07/15/24 10:30 07/15/24 11:17 Moxifloxacin Hcl 400 Mg Tablet PO 400 mg QAM RAJESH Administration Pantoprazole Sodium 40 mg 07/15/24 09:00 07/15/24 08:38 Pantoprazole 40 Mg Tablet PO 40 mg QAM RAJESH Administration Saccharomyces Boulardii 250 mg 07/15/24 13:00 07/15/24 17:07 Saccharomyces Boulardii 250 Mg Capsule PO 250 mg TID RAJESH Administration Radiology Results: ITS Impressions Catheter Placement CT 07/14/24 10:34 IMPRESSION: 1. Successful CT-guided pelvic abscess drainage catheter placement. 2. 40 mL fluid was sent for aerobic and anaerobic cultures. 3. The catheter will be managed by Dr. Pinon. Labs Labs: Laboratory Results - last 24 hr 07/15/24 07/15/24 07/16/24 09:00 10:48 04:37 WBC 12.0 H 11.5 H RBC 3.78 L 3.94 L Hgb 11.4 L 12.0 Hct 35.7 L 36.8 L MCV 94.4 93.4 MCH 30.2 30.5 MCHC 31.9 L 32.6 RDW 12.6 12.5 Plt Count 456 H 474 H MPV 9.4 9.3 Immature Gran % (Auto) 0.6 H Neut % (Auto) 75.9 H Lymph % (Auto) 15.3 L [place] % (Auto) 7.6 Eos % (Auto) 0.3 Baso % (Auto) 0.3 Lymph # (Auto) 1.84 [place] # (Auto) 0.9 H Eos # (Auto) 0.0 Baso # (Auto) 0.0 Abs Immat Gran (auto) 0.07 H Absolute Neuts (auto) 9.1 H Absolute Nucleated RBC 0.000 Nucleated RBC % 0.0 Sodium 138 Potassium 3.3 L Chloride 104 Carbon Dioxide 22 Anion Gap 12 BUN 13 Creatinine 0.72 Estim Creat Clear Calc 61 Estimated GFR > 60 Glucose 108 POC Capillary Glucose 102 Calcium 8.6 Total Bilirubin 0.5 AST 27 ALT 12 Alkaline Phosphatase 58 Total Protein 7.0 Albumin 3.4 L Quality VTE Prophylaxis VTE prophylaxis: mechanical ordered
[2024-07-16] MEDS: ALPRAZolam (*CRX) 0.25 MG TABLET PO ×2 (07:43→20:33)
[2024-07-16] MEDS: PANTOPRAZOLE 40 MG TABLET PO (07:43)
[2024-07-16] MEDS: SACCHAROMYCES BOULARDII 250 MG CAPSULE PO ×3 (07:43→16:39)
[2024-07-16 08:00] VITALS: O2SAT 98
[2024-07-16 08:00] LABS: Alanine Aminotransferase 12 U/L (6-35); Albumin Level 3.4 g/dL (3.5-5.1); Alkaline Phosphatase 54 U/L (38-126); Anion Gap 10 mmol/L (4-12); Aspartate Amino Transferase 29 U/L (14-36); Bilirubin,Total 0.5 mg/dL (0.2-1.3); Blood Urea Nitrogen 13 mg/dL (7-17); Calcium 8.7 mg/dL (8.4-10.2); Carbon Dioxide 24 mmol/L (22-30); Chloride 103 mmol/L (98-107); Estimated CRCL calculation 59 ml/min; Estimated Glomerular Filt Rate > 60; Glucose 83 mg/dL (65-110); Potassium 3.6 mmol/L (3.4-5.0); Sodium 137 mmol/L (137-145)
[2024-07-16 09:04] VITALS: PULSE 80
[2024-07-16] MEDS: METOPROLOL TARTRATE 50 MG TAB PO ×2 (09:04→20:32)
[2024-07-16] MEDS: MOXIFLOXACIN HCL 400 MG TABLET PO (09:04)
--- NOTE | 2024-07-16 11:28 | P.PNGS_ITS ---
Progress Note: A&P Assessment and Plan (1) Diverticulitis of intestine with perforation and abscess: Qualifiers: Diverticulitis site: large intestine Diverticulitis bleeding: without bleeding Qualified Code(s): K57.20 - Diverticulitis of large intestine with perforation and abscess without bleeding Code(s): K57.80 - Diverticulitis of intestine, part unspecified, with perforation and abscess without bleeding Status: Acute Assessment and Plan: * Advance to low fiber diet * Continue monitoring drain output * Surgically stable for discharge with drain (2) Hypertension: Qualifiers: Hypertension type: primary hypertension Qualified Code(s): I10 - Essential (primary) hypertension Code(s): I10 - Essential (primary) hypertension Status: Acute (3) Anxiety: Code(s): F41.9 - Anxiety disorder, unspecified Status: Acute Subjective Subjective Date/Time Seen: 07/16/24 11:28 Interval history: Tolerating full liquids and eating better. Diarrhea slightly improved. No fevers. Pain improving. Exam GI: Inspection: non-distended and other (Pigtail drain with bloody purulent drainage) GI Palp: Yes Soft to palpation, Yes Tenderness to palpation present (GI) (Suprapubic region near drain exit site), No Guarding due to palpation present (GI) and No Rebound tenderness present Auscultation: normal bowel sounds Objective Data Vital Signs Vital Signs: Vital Signs - 24 hr 07/15/24 14:00 07/15/24 20:00 07/15/24 21:19 Temperature 98.0 F 99.5 F Pulse Rate 100 107 H 107 H Respiratory Rate 16 16 16 Blood Pressure 148/75 H 147/86 H Pulse Oximetry 98 100 100 Oxygen Delivery Room Air 07/16/24 06:00 07/16/24 08:00 07/16/24 09:04 Temperature 98.3 F Pulse Rate 98 80 Respiratory Rate 16 Blood Pressure 149/84 H Pulse Oximetry 98 98 Oxygen Delivery Room Air Intake/Output Intake/Output: Intake & Output 07/13/24 07/14/24 07/15/24 07/16/24 23:59 23:59 23:59 23:59 Intake Total 1170 560 560 Output Total 200 300 600 Balance -200 870 -40 560 Meds/Results Medications: Active Medications Generic Name Dose Route Start Last Admin Trade Name Freq PRN Reason Stop Dose Admin Acetaminophen 650 mg 07/13/24 23:09 Acetaminophen 325 Mg Tablet PO Q6H PRN Mild Pain (1-3) or Fever Hydrocodone Bitart/Acetaminophen 1 tab 07/13/24 23:07 07/14/24 16:12 Hydrocodone/Acetaminophen (*Crx) 5-325 Mg Tablet PO 1 tab Q4H PRN Administration Moderate Pain (4-6) Alprazolam 0.25 mg 07/16/24 07:25 07/16/24 07:43 Alprazolam (*Crx) 0.25 Mg Tablet PO 0.25 mg BID PRN Administration Anxiety Amitriptyline HCl 25 mg 07/13/24 23:15 07/15/24 20:33 Amitriptyline Hcl 25 Mg Tablet PO 25 mg QHS RAJESH Administration Metoprolol Tartrate 50 mg 07/13/24 23:15 07/16/24 09:04 Metoprolol Tartrate 50 Mg Tab PO 50 mg Q12HR RAJESH Administration Morphine Sulfate 2 mg 07/13/24 23:09 Morphine Sulfate (*Crx) 2 Mg/Ml Inj IV PUSH Q4H PRN Pain Rated 7-10 Moxifloxacin HCl 400 mg 07/15/24 10:30 07/16/24 09:04 Moxifloxacin Hcl 400 Mg Tablet PO 400 mg QAM RAJESH Administration Pantoprazole Sodium 40 mg 07/15/24 09:00 07/16/24 07:43 Pantoprazole 40 Mg Tablet PO 40 mg QAM RAJESH Administration Saccharomyces Boulardii 250 mg 07/15/24 13:00 07/16/24 07:43 Saccharomyces Boulardii 250 Mg Capsule PO 250 mg TID RAJESH Administration Radiology Results: ITS Impressions Catheter Placement CT 07/14/24 10:34 IMPRESSION: 1. Successful CT-guided pelvic abscess drainage catheter placement. 2. 40 mL fluid was sent for aerobic and anaerobic cultures. 3. The catheter will be managed by Dr. Pinon. Labs Labs: Laboratory Results - last 24 hr 07/16/24 07/16/24 04:32 04:37 WBC 11.5 H RBC 3.94 L Hgb 12.0 Hct 36.8 L MCV 93.4 MCH 30.5 MCHC 32.6 RDW 12.5 Plt Count 474 H MPV 9.3 Sodium 137 Potassium 3.6 Chloride 103 Carbon Dioxide 24 Anion Gap 10 BUN 13 Creatinine 0.75 Estim Creat Clear Calc 59 Estimated GFR > 60 Glucose 83 Calcium 8.7 Total Bilirubin 0.5 AST 29 ALT 12 Alkaline Phosphatase 54 Total Protein 7.0 Albumin 3.4 L
[2024-07-16 14:00] VITALS: BP 130/70; PULSE 86; RESP 18; TEMP 36.3; O2SAT 100
[2024-07-16 20:32] VITALS: PULSE 100
[2024-07-16] MEDS: AMITRIPTYLINE HCL 25 MG TABLET PO (20:34)
[2024-07-16 22:00] VITALS: BP 129/63; PULSE 88; RESP 16; TEMP 36.9; O2SAT 98
[2024-07-17 05:12] LABS: Hematocrit 35.7 % (37.0-47.0); Hemoglobin 11.6 g/dL (12.0-15.0); Mean Corpuscular HGB Conc 32.5 g/dl (32-36); Mean Corpuscular Hemoglobin 30.4 pg (26-34); Mean Corpuscular Volume 93.5 fl (80-100); Mean Platelet Volume 9.6 fl (7.4-10.4); Platelet Count Result 477 k/mm3 (150-375); Red Blood Count 3.82 M/mm3 (4.2-5.4); Red Cell Distribution Width 12.5 % (11.5-14.5); White Blood Count 8.7 K/mm3 (4.5-10.0)
[2024-07-17 05:16] VITALS: BP 134/75; PULSE 92; RESP 16; TEMP 36.8; O2SAT 97
[2024-07-17 05:25] LABS: Alanine Aminotransferase 12 U/L (6-35); Albumin Level 3.4 g/dL (3.5-5.1); Alkaline Phosphatase 56 U/L (38-126); Anion Gap 10 mmol/L (4-12); Aspartate Amino Transferase 26 U/L (14-36); Bilirubin,Total 0.4 mg/dL (0.2-1.3); Blood Urea Nitrogen 12 mg/dL (7-17); Calcium 8.7 mg/dL (8.4-10.2); Carbon Dioxide 27 mmol/L (22-30); Chloride 102 mmol/L (98-107); Estimated CRCL calculation 56 ml/min; Estimated Glomerular Filt Rate > 60; Glucose 92 mg/dL (65-110); Potassium 3.5 mmol/L (3.4-5.0); Sodium 139 mmol/L (137-145)
[2024-07-17 08:12] VITALS: PULSE 92
[2024-07-17] MEDS: ALPRAZolam (*CRX) 0.25 MG TABLET PO ×2 (08:12→20:50)
[2024-07-17] MEDS: SACCHAROMYCES BOULARDII 250 MG CAPSULE PO ×3 (08:12→17:23)
[2024-07-17] MEDS: PANTOPRAZOLE 40 MG TABLET PO (08:12)
[2024-07-17] MEDS: METOPROLOL TARTRATE 50 MG TAB PO ×2 (08:12→20:50)
[2024-07-17] MEDS: MOXIFLOXACIN HCL 400 MG TABLET PO (08:12)
--- NOTE | 2024-07-17 10:35 | ECG_ITS ---
Test Date: 2024-07-17 10:57:48 Measurements Intervals [place] Rate: 78 P: 5 OR: 123 QRS: 4 QRSD: 95 T: 28 QT: 434 QTc: 495 Interpretive Statements SINUS RHYTHM EARLY PRECORDIAL R/S TRANSITION BASELINE ARTIFACT- I, II, III, AVL BORDERLINE ECG Compared to ECG 06/26/2024 06:04:12 HEART RATE HAS DECREASED Electronically Signed On 07-17-2024 11:13:26 CDT by Joseph Silveira D.O.
--- NOTE | 2024-07-17 11:43 | PCNFU ---
Nutrition Follow-Up Complete: Unintended weight loss as related to Diverticular abscess as evidenced by 9 ibs (5%) weight loss in 3 weeks. Meet estimated nutritional needs.- Progressing slowly with intakes Goal: Pt current nutrition is Low fiber diet. Nutrition recommendation: No new recommendations. Pt declines supplements Last recorded weight is 69.7 kg. Bowel Motility: +6 BMs 07/15/24 Labs Reviewed: Hgb 11.6, Hct 35.7, Alb 3.4 Meds Noted: Protonix, florastor Skin: No skin issues noted Additional Notes: Pt is eating some cream of wheat when seen. Says she is doing a little better. Declines supplements. Continue to monitor Will monitor weight, labs , skin, diet orders, meds every 3 days.
--- NOTE | 2024-07-17 13:29 | PM.IMPN ---
Progress Note: A&P Assessment and Plan (1) Diverticulitis of intestine with perforation and abscess: Qualifiers: Diverticulitis site: large intestine Diverticulitis bleeding: without bleeding Qualified Code(s): K57.20 - Diverticulitis of large intestine with perforation and abscess without bleeding Code(s): K57.80 - Diverticulitis of intestine, part unspecified, with perforation and abscess without bleeding Status: Acute Assessment and Plan: Admitted to the hospital at the end of May 2024 with sigmoid diverticulitis with evidence of perforation on initial imaging. Repeat CT scan done 2 days thereafter showed a fluid and air collection in the right hemipelvis which did not appear large enough to be drained. Her exam improved, she was tolerating a diet, and she was able to be discharged home with oral antibiotics on 06/30/2024 antibiotics. - CT abdomen/pelvis showed redemonstration of a diverticular abscess, increasing in size and worsening in morphology within the deep pelvis with a clear window of access for percutaneous drainage - s/p pelvic abscess drainage with catheter placement on 07/[address] Flores Drain continues to have serosang discharge. - Diet: advanced to low fiber diet - Antibiotics: Rocephin and Flagyl started on 07/13 developed diarrhea, transitioned to moxifloxacin on 07/15 given allergies - Analgesics - Monitor vital signs, I&Os, track stool output, watch for bloody stools, neuro status and patient is a fall risk - Monitor serum electrolytes and CBC Patient endorsing nausea however concern about antiemetic use given prolonged QTC. Not advancing her diet due to ongoing nausea. Will trial reglan as this does not impact qtc per pharm and surgery okay given diverticulitis. Will rescan patient to evaluate abscess. WBC remains WNL. Afebrile. She remains on moxifloxacin, however per surgery she is relating the antibiotic to her diarrhea/soft stools. Will obtain a cdiff as she states is also having diarrhea. Surgery plans on discussing abx with ID pharm. (2) Hypertension: Qualifiers: Hypertension type: primary hypertension Qualified Code(s): I10 - Essential (primary) hypertension Code(s): I10 - Essential (primary) hypertension Status: Acute Assessment and Plan: Chronic, continue home medications - metoprolol 50 mg BID - blood pressures remain stable, continue to monitor (3) Gastroesophageal reflux disease: Code(s): K21.9 - Gastro-esophageal reflux disease without esophagitis Status: Acute Assessment and Plan: Chronic Started on Protonix 40 mg daily (4) Anxiety: Code(s): F41.9 - Anxiety disorder, unspecified Status: Acute Assessment and Plan: Chronic, continue home medications - xanax 0.25 mg BID and amitriptyline 25 mg daily Time Spent With Patient Time with patient: 25 - 35 minutes Subjective Date/time seen: 07/17/24 13:29 Interval history: 69-year-old female with hypertension, gastroesophageal reflux disease, and anxiety who is being directly admitted to the hospital from the outpatient setting after she was found to have an enlarging diverticular abscess on CT scan done as an outpatient. Patient continues to endorse nausea and diarrhea however she goes on to state that she is having soft formed stools. Due to the nausea she is not moving forward with her diet. She states her abdominal pain has improved but continues to no pressure along the drain insertion site. She has no other complaints denying chest pain, palpitations, shortness of breath. Review of Systems Review of Systems: All systems reviewed & are unremarkable except as noted in HPI and below Exam Narrative: AF HR 92 RR 16 SpO2 97 BP 134/75 General: female in no acute respiratory distress who is nontoxic appearing, lying semi recumbent in bed. HEENT: Normocephalic. Atraumatic. Extraocular movement intact. Sclera clear and anicteric. No facial asymmetry. Chest: Lungs are clear to auscultation bilaterally. No wheezes or crackles. CV: Heart was regular rate and rhythm. Abd: Abdomen was soft. Tender to palpation around drain insertion site. Nondistended. Positive bowel sounds. Drain in place with serosanguineous drainage. Ext: No clubbing, cyanosis, or edema. DP pulses bilaterally. Neuro: Patient is alert. Speech is clear. Objective Data Vital Signs Vital Signs: Vital Signs - 24 hr 07/16/24 14:00 07/16/24 20:00 07/16/24 20:32 Temperature 97.3 F L Pulse Rate 86 100 Respiratory Rate 18 Blood Pressure 130/70 Pulse Oximetry 100 Oxygen Delivery Room Air 07/16/24 22:00 07/17/24 05:16 07/17/24 08:00 Temperature 98.4 F 98.2 F Pulse Rate 88 92 Respiratory Rate 16 16 Blood Pressure 129/63 134/75 Pulse Oximetry 98 97 Oxygen Delivery Room Air 07/17/24 08:12 Temperature Pulse Rate 92 Respiratory Rate Blood Pressure Pulse Oximetry Oxygen Delivery Intake/Output Intake/Output: Intake & Output 07/14/24 07/15/24 07/16/24 07/17/24 23:59 23:59 23:59 23:59 Intake Total 8072 787 6026 200 Output Total 300 600 30 Balance 870 -40 1630 200 Meds/Results Medications: Active Medications Generic Name Dose Route Start Last Admin Trade Name Freq PRN Reason Stop Dose Admin Acetaminophen 650 mg 07/13/24 23:09 Acetaminophen 325 Mg Tablet PO Q6H PRN Mild Pain (1-3) or Fever Hydrocodone Bitart/Acetaminophen 1 tab 07/13/24 23:07 07/14/24 16:12 Hydrocodone/Acetaminophen (*Crx) 5-325 Mg Tablet PO 1 tab Q4H PRN Administration Moderate Pain (4-6) Alprazolam 0.25 mg 07/16/24 07:25 07/17/24 08:12 Alprazolam (*Crx) 0.25 Mg Tablet PO 0.25 mg BID PRN Administration Anxiety Amitriptyline HCl 25 mg 07/13/24 23:15 07/16/24 20:34 Amitriptyline Hcl 25 Mg Tablet PO 25 mg QHS RAJESH Administration Metoclopramide HCl 10 mg 07/17/24 16:30 Metoclopramide Hcl 10 Mg/10 Ml Soln Udc PO ACHS RAJESH Metoprolol Tartrate 50 mg 07/13/24 23:15 07/17/24 08:12 Metoprolol Tartrate 50 Mg Tab PO 50 mg Q12HR RAJESH Administration Morphine Sulfate 2 mg 07/13/24 23:09 Morphine Sulfate (*Crx) 2 Mg/Ml Inj IV PUSH Q4H PRN Pain Rated 7-10 Moxifloxacin HCl 400 mg 07/15/24 10:30 07/17/24 08:12 Moxifloxacin Hcl 400 Mg Tablet PO 400 mg QAM RAJESH Administration Pantoprazole Sodium 40 mg 07/15/24 09:00 07/17/24 08:12 Pantoprazole 40 Mg Tablet PO 40 mg QAM RAJESH Administration Saccharomyces Boulardii 250 mg 07/15/24 13:00 07/17/24 12:29 Saccharomyces Boulardii 250 Mg Capsule PO 250 mg TID RAJESH Administration Radiology Results: ITS Impressions Catheter Placement CT 07/14/24 10:34 IMPRESSION: 1. Successful CT-guided pelvic abscess drainage catheter placement. 2. 40 mL fluid was sent for aerobic and anaerobic cultures. 3. The catheter will be managed by Dr. Pinon. Labs Labs: Laboratory Results - last 24 hr 07/17/24 04:42 WBC 8.7 RBC 3.82 L Hgb 11.6 L Hct 35.7 L MCV 93.5 MCH 30.4 MCHC 32.5 RDW 12.5 Plt Count 477 H MPV 9.6 Sodium 139 Potassium 3.5 Chloride 102 Carbon Dioxide 27 Anion Gap 10 BUN 12 Creatinine 0.79 Estim Creat Clear Calc 56 Estimated GFR > 60 Glucose 92 Calcium 8.7 Total Bilirubin 0.4 AST 26 ALT 12 Alkaline Phosphatase 56 Total Protein 7.0 Albumin 3.4 L Quality VTE Prophylaxis VTE prophylaxis: mechanical ordered
--- NOTE | 2024-07-17 13:50 | P.PNGS_ITS ---
Progress Note: A&P Assessment and Plan (1) Diverticulitis of intestine with perforation and abscess: Qualifiers: Diverticulitis site: large intestine Diverticulitis bleeding: without bleeding Qualified Code(s): K57.20 - Diverticulitis of large intestine with perforation and abscess without bleeding Code(s): K57.80 - Diverticulitis of intestine, part unspecified, with perforation and abscess without bleeding Status: Acute Assessment and Plan: * Continue low-fiber diet, poor p.o. intake today * Will repeat CT scan to re-evaluate abscess, patient is concerned about going home with the drain * Discussed culture results with ID pharmacist. There was growth of Pseudomonas and Enterococcus, as well as yeast. We will start fluconazole and request identification of yeast. Will also switch moxifloxacin to ciprofloxacin for Pseudomonas coverage and discuss her allergies and refusal of Flagyl with the patient. Options for anaerobic coverage are limited as she has been refusing Flagyl. With the addition of fluconazole, will need to repeat an EKG in a few days to re-evaluate QT. (2) Hypertension: Qualifiers: Hypertension type: primary hypertension Qualified Code(s): I10 - Essential (primary) hypertension Code(s): I10 - Essential (primary) hypertension Status: Acute (3) Anxiety: Code(s): F41.9 - Anxiety disorder, unspecified Status: Acute Plan I have discussed the patient's case and plan of care with Dr. Quintero. Subjective Subjective Date/Time Seen: 07/17/24 13:50 Patient reports: still having pain, flatus, diarrhea and afebrile Interval history: Patient reports not feeling well today. She felt bloated and nauseous this morning, therefore she did not eat breakfast. She reports she is still having lower abdominal pain mostly in the suprapubic area that is intermittent. She does not feel her pain has improved over the past few days. She is concerned about her diarrhea as well, but reports she had a more semi formed stool last night and has had 2 loose bowel movements today. Minimal perc drain output. Exam Const: General: comfortable and no acute distress GI: Inspection: non-distended GI Palp: Yes Soft to palpation, Yes Tenderness to palpation present (GI) (Suprapubic and left lower quadrant), No Guarding due to palpation present (GI) and No Rebound tenderness present Auscultation: normal bowel sounds Other: Mid lower abdominal perc drain with scant maroon/clotilde output Objective Data Vital Signs Vital Signs: Vital Signs - 24 hr 07/16/24 14:00 07/16/24 20:00 07/16/24 20:32 Temperature 97.3 F L Pulse Rate 86 100 Respiratory Rate 18 Blood Pressure 130/70 Pulse Oximetry 100 Oxygen Delivery Room Air 07/16/24 22:00 07/17/24 05:16 07/17/24 08:00 Temperature 98.4 F 98.2 F Pulse Rate 88 92 Respiratory Rate 16 16 Blood Pressure 129/63 134/75 Pulse Oximetry 98 97 Oxygen Delivery Room Air 07/17/24 08:12 Temperature Pulse Rate 92 Respiratory Rate Blood Pressure Pulse Oximetry Oxygen Delivery Intake/Output Intake/Output: Intake & Output 07/14/24 07/15/24 07/16/24 07/17/24 23:59 23:59 23:59 23:59 Intake Total 3729 454 4035 200 Output Total 300 600 30 Balance 870 -40 1630 200 Meds/Results Medications: Active Medications Generic Name Dose Route Start Last Admin Trade Name Freq PRN Reason Stop Dose Admin Acetaminophen 650 mg 07/13/24 23:09 Acetaminophen 325 Mg Tablet PO Q6H PRN Mild Pain (1-3) or Fever Hydrocodone Bitart/Acetaminophen 1 tab 07/13/24 23:07 07/14/24 16:12 Hydrocodone/Acetaminophen (*Crx) 5-325 Mg Tablet PO 1 tab Q4H PRN Administration Moderate Pain (4-6) Alprazolam 0.25 mg 07/16/24 07:25 07/17/24 08:12 Alprazolam (*Crx) 0.25 Mg Tablet PO 0.25 mg BID PRN Administration Anxiety Amitriptyline HCl 25 mg 07/13/24 23:15 07/16/24 20:34 Amitriptyline Hcl 25 Mg Tablet PO 25 mg QHS RAJESH Administration Metoclopramide HCl 10 mg 07/17/24 16:30 Metoclopramide Hcl 10 Mg/10 Ml Soln Udc PO ACHS RAJESH Metoprolol Tartrate 50 mg 07/13/24 23:15 07/17/24 08:12 Metoprolol Tartrate 50 Mg Tab PO 50 mg Q12HR RAJESH Administration Morphine Sulfate 2 mg 07/13/24 23:09 Morphine Sulfate (*Crx) 2 Mg/Ml Inj IV PUSH Q4H PRN Pain Rated 7-10 Moxifloxacin HCl 400 mg 07/15/24 10:30 07/17/24 08:12 Moxifloxacin Hcl 400 Mg Tablet PO 400 mg QAM RAJESH Administration Pantoprazole Sodium 40 mg 07/15/24 09:00 07/17/24 08:12 Pantoprazole 40 Mg Tablet PO 40 mg QAM RAJESH Administration Saccharomyces Boulardii 250 mg 07/15/24 13:00 07/17/24 12:29 Saccharomyces Boulardii 250 Mg Capsule PO 250 mg TID RAJESH Administration Radiology Results: ITS Impressions Catheter Placement CT 07/14/24 10:34 IMPRESSION: 1. Successful CT-guided pelvic abscess drainage catheter placement. 2. 40 mL fluid was sent for aerobic and anaerobic cultures. 3. The catheter will be managed by Dr. Pinon. Labs Labs: Laboratory Results - last 24 hr 07/17/24 04:42 WBC 8.7 RBC 3.82 L Hgb 11.6 L Hct 35.7 L MCV 93.5 MCH 30.4 MCHC 32.5 RDW 12.5 Plt Count 477 H MPV 9.6 Sodium 139 Potassium 3.5 Chloride 102 Carbon Dioxide 27 Anion Gap 10 BUN 12 Creatinine 0.79 Estim Creat Clear Calc 56 Estimated GFR > 60 Glucose 92 Calcium 8.7 Total Bilirubin 0.4 AST 26 ALT 12 Alkaline Phosphatase 56 Total Protein 7.0 Albumin 3.4 L
--- NOTE | 2024-07-17 13:51 | P.PNGS_ITS ---
Progress Note: A&P Assessment and Plan (1) Diverticulitis of intestine with perforation and abscess: Qualifiers: Diverticulitis site: large intestine Diverticulitis bleeding: without bleeding Qualified Code(s): K57.20 - Diverticulitis of large intestine with perforation and abscess without bleeding Code(s): K57.80 - Diverticulitis of intestine, part unspecified, with perforation and abscess without bleeding Status: Acute Assessment and Plan: cont drain and abx, will tailor abx for cultures including antifungal, will repeat CT to reassess abscess cavity, encourage po intake, OOB Subjective Subjective Date/Time Seen: 07/17/24 13:51 Interval history: c/o poor appetite, nausea Review of Systems Review of Systems: All systems reviewed & are unremarkable except as noted in HPI and below Exam Const: General: cooperative, no acute distress and uncomfortable Cardio: Rate: regular rate Rhythm: regular rhythm GI: Inspection: normal to inspection and non-distended GI Palp: No abdo murtaza tenderness and Yes Soft to palpation Objective Data Vital Signs Vital Signs: Vital Signs - 24 hr 07/16/24 14:00 07/16/24 20:00 07/16/24 20:32 Temperature 36.3 C L Pulse Rate 86 100 Respiratory Rate 18 Blood Pressure 130/70 Pulse Oximetry 100 Oxygen Delivery Room Air 07/16/24 22:00 07/17/24 05:16 07/17/24 08:00 Temperature 36.9 C 36.8 C Pulse Rate 88 92 Respiratory Rate 16 16 Blood Pressure 129/63 134/75 Pulse Oximetry 98 97 Oxygen Delivery Room Air 07/17/24 08:12 Temperature Pulse Rate 92 Respiratory Rate Blood Pressure Pulse Oximetry Oxygen Delivery Intake/Output Intake/Output: Intake & Output 07/14/24 07/15/24 07/16/24 07/17/24 23:59 23:59 23:59 23:59 Intake Total 3014 714 1946 200 Output Total 300 600 30 Balance 870 -40 1630 200 Meds/Results Medications: Active Medications Generic Name Dose Route Start Last Admin Trade Name Freq PRN Reason Stop Dose Admin Acetaminophen 650 mg 07/13/24 23:09 Acetaminophen 325 Mg Tablet PO Q6H PRN Mild Pain (1-3) or Fever Hydrocodone Bitart/Acetaminophen 1 tab 07/13/24 23:07 07/14/24 16:12 Hydrocodone/Acetaminophen (*Crx) 5-325 Mg Tablet PO 1 tab Q4H PRN Administration Moderate Pain (4-6) Alprazolam 0.25 mg 07/16/24 07:25 07/17/24 08:12 Alprazolam (*Crx) 0.25 Mg Tablet PO 0.25 mg BID PRN Administration Anxiety Amitriptyline HCl 25 mg 07/13/24 23:15 07/16/24 20:34 Amitriptyline Hcl 25 Mg Tablet PO 25 mg QHS RAJESH Administration Metoclopramide HCl 10 mg 07/17/24 16:30 Metoclopramide Hcl 10 Mg/10 Ml Soln Udc PO ACHS RAJESH Metoprolol Tartrate 50 mg 07/13/24 23:15 07/17/24 08:12 Metoprolol Tartrate 50 Mg Tab PO 50 mg Q12HR RAJESH Administration Morphine Sulfate 2 mg 07/13/24 23:09 Morphine Sulfate (*Crx) 2 Mg/Ml Inj IV PUSH Q4H PRN Pain Rated 7-10 Moxifloxacin HCl 400 mg 07/15/24 10:30 07/17/24 08:12 Moxifloxacin Hcl 400 Mg Tablet PO 400 mg QAM RAJESH Administration Pantoprazole Sodium 40 mg 07/15/24 09:00 07/17/24 08:12 Pantoprazole 40 Mg Tablet PO 40 mg QAM RAJESH Administration Saccharomyces Boulardii 250 mg 07/15/24 13:00 07/17/24 12:29 Saccharomyces Boulardii 250 Mg Capsule PO 250 mg TID RAJESH Administration Radiology Results: ITS Impressions Catheter Placement CT 07/14/24 10:34 IMPRESSION: 1. Successful CT-guided pelvic abscess drainage catheter placement. 2. 40 mL fluid was sent for aerobic and anaerobic cultures. 3. The catheter will be managed by Dr. Pinon. Labs Labs: Laboratory Results - last 24 hr 07/17/24 04:42 WBC 8.7 RBC 3.82 L Hgb 11.6 L Hct 35.7 L MCV 93.5 MCH 30.4 MCHC 32.5 RDW 12.5 Plt Count 477 H MPV 9.6 Sodium 139 Potassium 3.5 Chloride 102 Carbon Dioxide 27 Anion Gap 10 BUN 12 Creatinine 0.79 Estim Creat Clear Calc 56 Estimated GFR > 60 Glucose 92 Calcium 8.7 Total Bilirubin 0.4 AST 26 ALT 12 Alkaline Phosphatase 56 Total Protein 7.0 Albumin 3.4 L
[2024-07-17 14:00] VITALS: BP 131/70; PULSE 95; RESP 14; TEMP 36.8; O2SAT 98
[2024-07-17] MEDS: CEFEPIME 2 GM/NS 50 ML 2 GM/50 ML BAG IVPB (15:16)
[2024-07-17] MEDS: FLUCONAZOLE 100 MG TABLET 400 MG PO (15:30)
[2024-07-17] MEDS: KCL 20 MEQ/SW 100 ML 100 ML 50 MEQ IVPB (15:51)
[2024-07-17] MEDS: AMOXICILLIN/CLAVULANATE K 875-125 MG TAB 1 TABLET PO (17:23)
[2024-07-17 20:50] VITALS: PULSE 103
[2024-07-17] MEDS: AMITRIPTYLINE HCL 25 MG TABLET PO (20:50)
[2024-07-17 21:06] LABS: Toxigenic C. Diff NEGATIVE (NEGATIVE)
[2024-07-17 21:19] VITALS: BP 125/83; PULSE 103; RESP 16; TEMP 37; O2SAT 100
[2024-07-18] MEDS: CEFEPIME 2 GM/NS 50 ML 2 GM/50 ML BAG IVPB (02:18)
[2024-07-18 04:42] LABS: Hematocrit 33.8 % (37.0-47.0); Hemoglobin 10.8 g/dL (12.0-15.0); Mean Corpuscular Hemoglobin 30.1 pg (26-34); Mean Corpuscular Volume 94.2 fl (80-100); Mean Platelet Volume 9.5 fl (7.4-10.4); Platelet Count Result 450 k/mm3 (150-375); Red Blood Count 3.59 M/mm3 (4.2-5.4); Red Cell Distribution Width 12.8 % (11.5-14.5); White Blood Count 7.8 K/mm3 (4.5-10.0)
[2024-07-18 05:04] LABS: Alanine Aminotransferase 14 U/L (6-35); Albumin Level 3.3 g/dL (3.5-5.1); Alkaline Phosphatase 52 U/L (38-126); Anion Gap 9 mmol/L (4-12); Aspartate Amino Transferase 26 U/L (14-36); Bilirubin,Total 0.4 mg/dL (0.2-1.3); Blood Urea Nitrogen 9 mg/dL (7-17); Calcium 8.8 mg/dL (8.4-10.2); Carbon Dioxide 26 mmol/L (22-30); Chloride 104 mmol/L (98-107); Estimated CRCL calculation 56 ml/min; Estimated Glomerular Filt Rate > 60; Glucose 94 mg/dL (65-110); Potassium 3.6 mmol/L (3.4-5.0); Sodium 139 mmol/L (137-145)
[2024-07-18 05:45] VITALS: BP 136/80; PULSE 90; RESP 16; O2SAT 100
--- NOTE | 2024-07-18 07:49 | PM.IMPN ---
Progress Note: A&P Assessment and Plan (1) Diverticulitis of intestine with perforation and abscess: Qualifiers: Diverticulitis site: large intestine Diverticulitis bleeding: without bleeding Qualified Code(s): K57.20 - Diverticulitis of large intestine with perforation and abscess without bleeding Code(s): K57.80 - Diverticulitis of intestine, part unspecified, with perforation and abscess without bleeding Status: Acute Assessment and Plan: Admitted to the hospital at the end of May 2024 with sigmoid diverticulitis with evidence of perforation on initial imaging. Repeat CT scan done 2 days thereafter showed a fluid and air collection in the right hemipelvis which did not appear large enough to be drained. Her exam improved, she was tolerating a diet, and she was able to be discharged home with oral antibiotics on 06/30/2024 antibiotics. - CT abdomen/pelvis showed redemonstration of a diverticular abscess, increasing in size and worsening in morphology within the deep pelvis with a clear window of access for percutaneous drainage - s/p pelvic abscess drainage with catheter placement on 07/[address] Flores Drain continues to have serosang discharge. - Diet: advanced to low fiber diet - Antibiotics: Rocephin and Flagyl started on 07/13 developed diarrhea, transitioned to moxifloxacin on 07/15 given allergies - Analgesics - Monitor vital signs, I&Os, track stool output, watch for bloody stools, neuro status and patient is a fall risk - Monitor serum electrolytes and CBC Patient endorsing nausea however concern about antiemetic use given prolonged QTC. Not advancing her diet due to ongoing nausea. Will trial reglan as this does not impact qtc per pharm and surgery okay given diverticulitis. Will rescan patient to evaluate abscess. WBC remains WNL. Afebrile. She remains on moxifloxacin, however per surgery she is relating the antibiotic to her diarrhea/soft stools. Will obtain a cdiff as she states is also having diarrhea. Surgery plans on discussing abx with ID pharm. (2) Hypertension: Qualifiers: Hypertension type: primary hypertension Qualified Code(s): I10 - Essential (primary) hypertension Code(s): I10 - Essential (primary) hypertension Status: Acute Assessment and Plan: Chronic, continue home medications - metoprolol 50 mg BID - blood pressures remain stable, continue to monitor (3) Gastroesophageal reflux disease: Code(s): K21.9 - Gastro-esophageal reflux disease without esophagitis Status: Acute Assessment and Plan: Chronic Started on Protonix 40 mg daily (4) Anxiety: Code(s): F41.9 - Anxiety disorder, unspecified Status: Acute Assessment and Plan: Chronic, continue home medications - xanax 0.25 mg BID and amitriptyline 25 mg daily Subjective Date/time seen: 07/18/24 07:49 Interval history: 69-year-old female with hypertension, gastroesophageal reflux disease, and anxiety who is being directly admitted to the hospital from the outpatient setting after she was found to have an enlarging diverticular abscess on CT scan done as an outpatient. Review of Systems Review of Systems: All systems reviewed & are unremarkable except as noted in HPI and below Exam Narrative: AF HR General: female in no acute respiratory distress who is nontoxic appearing, lying semi recumbent in bed. HEENT: Normocephalic. Atraumatic. Extraocular movement intact. Sclera clear and anicteric. No facial asymmetry. Chest: Lungs are clear to auscultation bilaterally. No wheezes or crackles. CV: Heart was regular rate and rhythm. Abd: Abdomen was soft. Tender to palpation around drain insertion site. Nondistended. Positive bowel sounds. Drain in place with serosanguineous drainage. Ext: No clubbing, cyanosis, or edema. DP pulses bilaterally. Neuro: Patient is alert. Speech is clear. Objective Data Vital Signs Vital Signs: Vital Signs - 24 hr 07/17/24 08:00 07/17/24 08:12 07/17/24 14:00 Temperature 98.2 F Pulse Rate 92 95 Respiratory Rate 14 Blood Pressure 131/70 Pulse Oximetry 98 Oxygen Delivery Room Air 07/17/24 20:00 07/17/24 20:50 07/17/24 21:19 Temperature 98.6 F Pulse Rate 103 H 103 H Respiratory Rate 16 Blood Pressure 125/83 Pulse Oximetry 100 Oxygen Delivery Room Air 07/18/24 05:45 Temperature Pulse Rate 90 Respiratory Rate 16 Blood Pressure 136/80 Pulse Oximetry 100 Oxygen Delivery Intake/Output Intake/Output: Intake & Output 07/15/24 07/16/24 07/17/24 07/18/24 23:59 23:59 23:59 23:59 Intake Total 560 1660 500 Output Total 600 30 Balance -40 1630 500 Meds/Results Medications: Active Medications Generic Name Dose Route Start Last Admin Trade Name Freq PRN Reason Stop Dose Admin Acetaminophen 650 mg 07/13/24 23:09 Acetaminophen 325 Mg Tablet PO Q6H PRN Mild Pain (1-3) or Fever Hydrocodone Bitart/Acetaminophen 1 tab 07/13/24 23:07 07/14/24 16:12 Hydrocodone/Acetaminophen (*Crx) 5-325 Mg Tablet PO 1 tab Q4H PRN Administration Moderate Pain (4-6) Alprazolam 0.25 mg 07/16/24 07:25 07/17/24 20:50 Alprazolam (*Crx) 0.25 Mg Tablet PO 0.25 mg BID PRN Administration Anxiety Amitriptyline HCl 25 mg 07/13/24 23:15 07/17/24 20:50 Amitriptyline Hcl 25 Mg Tablet PO 25 mg QHS RAJESH Administration Amoxicillin/Clavulanate Potassium 1 tablet 07/17/24 18:00 07/17/24 17:23 Amoxicillin/Clavulanate K 875-125 Mg Tab PO 1 tablet Q12HR RAJESH Administration Ciprofloxacin 500 mg 07/18/24 09:30 Ciprofloxacin 500 Mg Tab PO Q12HR RAJESH Fluconazole 400 mg 07/17/24 15:30 07/17/24 15:30 Fluconazole 100 Mg Tablet PO 400 mg DAILY@1500 RAJESH Administration Metoprolol Tartrate 50 mg 07/13/24 23:15 07/17/24 20:50 Metoprolol Tartrate 50 Mg Tab PO 50 mg Q12HR RAJESH Administration Morphine Sulfate 2 mg 07/13/24 23:09 Morphine Sulfate (*Crx) 2 Mg/Ml Inj IV PUSH Q4H PRN Pain Rated 7-10 Pantoprazole Sodium 40 mg 07/15/24 09:00 07/17/24 08:12 Pantoprazole 40 Mg Tablet PO 40 mg QAM RAJESH Administration Saccharomyces Boulardii 250 mg 07/15/24 13:00 07/17/24 17:23 Saccharomyces Boulardii 250 Mg Capsule PO 250 mg TID RAJESH Administration Trimethobenzamide HCl 200 mg 07/17/24 14:53 Trimethobenzamide Hcl 200 Mg/2 Ml Vial IM Q6H PRN Nausea And Vomiting Radiology Results: ITS Impressions Catheter Placement CT 07/14/24 10:34 IMPRESSION: 1. Successful CT-guided pelvic abscess drainage catheter placement. 2. 40 mL fluid was sent for aerobic and anaerobic cultures. 3. The catheter will be managed by Dr. Pinon. Abdomen/Pelvis CT 07/17/24 14:06 IMPRESSION: 1. Perforated sigmoid diverticulitis with interval near complete decompression of the previously seen right pelvic abscess post percutaneous drainage catheter placement with 1.5 cm diameter residual fluid collection. Labs Labs: Laboratory Results - last 24 hr 07/17/24 07/18/24 18:37 04:19 WBC 7.8 RBC 3.59 L Hgb 10.8 L Hct 33.8 L MCV 94.2 MCH 30.1 MCHC 32.0 RDW 12.8 Plt Count 450 H MPV 9.5 Sodium 139 Potassium 3.6 Chloride 104 Carbon Dioxide 26 Anion Gap 9 BUN 9 Creatinine 0.80 Estim Creat Clear Calc 56 Estimated GFR > 60 Glucose 94 Calcium 8.8 Total Bilirubin 0.4 AST 26 ALT 14 Alkaline Phosphatase 52 Total Protein 7.0 Albumin 3.3 L C. difficile (PCR) Negative Quality VTE Prophylaxis VTE prophylaxis: mechanical ordered
[2024-07-18 08:50] VITALS: PULSE 96
[2024-07-18] MEDS: CIPROFLOXACIN 500 MG TAB PO (08:50)
[2024-07-18] MEDS: METOPROLOL TARTRATE 50 MG TAB PO (08:50)
[2024-07-18] MEDS: PANTOPRAZOLE 40 MG TABLET PO (08:50)
[2024-07-18] MEDS: AMOXICILLIN/CLAVULANATE K 875-125 MG TAB 1 TABLET PO (08:50)
[2024-07-18] MEDS: SACCHAROMYCES BOULARDII 250 MG CAPSULE PO ×2 (08:50→12:32)
--- NOTE | 2024-07-18 09:00 | ECG_ITS ---
Test Date: 2024-07-18 09:46:37 Measurements Intervals [place] Rate: 97 P: 40 MI: 132 QRS: 21 QRSD: 100 T: 29 QT: 387 QTc: 493 Interpretive Statements SINUS RHYTHM EARLY PRECORDIAL R/S TRANSITION NONSPECIFIC T-WAVE ABNORMALITY- ANTERIOR LEADS BORDERLINE ECG Compared to ECG 07/17/2024 10:57:48 NO SIGNIFICANT CHANGE Electronically Signed On 07-18-2024 09:54:57 CDT by Joseph Silveira D.O.
--- NOTE | 2024-07-18 10:49 | P.PNGS_ITS ---
Progress Note: A&P Assessment and Plan (1) Diverticulitis of intestine with perforation and abscess: Qualifiers: Diverticulitis site: large intestine Diverticulitis bleeding: without bleeding Qualified Code(s): K57.20 - Diverticulitis of large intestine with perforation and abscess without bleeding Code(s): K57.80 - Diverticulitis of intestine, part unspecified, with perforation and abscess without bleeding Status: Acute Assessment and Plan: * Repeat CT scan showed nearly complete resolution of the abscess. No output from the drain overnight. She continues to clinically improve and white blood cell count normal. * Perc drain removed, she is surgically stable for discharge on a low-fiber diet and with Augmentin, ciprofloxacin, and fluconazole for at least 2 weeks. * Will have her follow-up with Dr. Quintero in 2 weeks (2) Hypertension: Qualifiers: Hypertension type: primary hypertension Qualified Code(s): I10 - Essential (primary) hypertension Code(s): I10 - Essential (primary) hypertension Status: Acute (3) Anxiety: Code(s): F41.9 - Anxiety disorder, unspecified Status: Acute Plan I have discussed the patient's case and plan of care with Dr. Quintero. Subjective Subjective Date/Time Seen: 07/18/24 10:49 Patient reports: no new complaints, feels better, tolerating a regular diet, flatus, bowel movement and afebrile Interval history: Patient eating better today. She was able to tolerate breakfast. No nausea today. No vomiting yesterday. Bowels are moving and reports they are more formed. She is tolerating the Augmentin without any side effects or a rash. No other complaints at this time. Exam Const: General: comfortable and no acute distress GI: Inspection: non-distended GI Palp: Yes Soft to palpation, Yes Tenderness to palpation present (GI) (Less tender, only tender near perc drain), No Guarding due to palpation present (GI) and No Rebound tenderness present Auscultation: normal bowel sounds Other: Scant rest colored drainage in the drain similar to yesterday with no output documented overnight. Suture and percutaneous drain removed at the bedside today. Gauze dressing applied. Objective Data Vital Signs Vital Signs: Vital Signs - 24 hr 07/17/24 14:00 07/17/24 20:00 07/17/24 20:50 Temperature 98.2 F Pulse Rate 95 103 H Respiratory Rate 14 Blood Pressure 131/70 Pulse Oximetry 98 Oxygen Delivery Room Air 07/17/24 21:19 07/18/24 05:45 07/18/24 08:00 Temperature 98.6 F Pulse Rate 103 H 90 Respiratory Rate 16 16 Blood Pressure 125/83 136/80 Pulse Oximetry 100 100 Oxygen Delivery Room Air 07/18/24 08:50 Temperature Pulse Rate 96 Respiratory Rate Blood Pressure Pulse Oximetry Oxygen Delivery Intake/Output Intake/Output: Intake & Output 07/15/24 07/16/24 07/17/24 07/18/24 23:59 23:59 23:59 23:59 Intake Total 560 1660 500 120 Output Total 600 30 Balance -40 1630 500 120 Meds/Results Medications: Active Medications Generic Name Dose Route Start Last Admin Trade Name Freq PRN Reason Stop Dose Admin Acetaminophen 650 mg 07/13/24 23:09 Acetaminophen 325 Mg Tablet PO Q6H PRN Mild Pain (1-3) or Fever Hydrocodone Bitart/Acetaminophen 1 tab 07/13/24 23:07 07/14/24 16:12 Hydrocodone/Acetaminophen (*Crx) 5-325 Mg Tablet PO 1 tab Q4H PRN Administration Moderate Pain (4-6) Alprazolam 0.25 mg 07/16/24 07:25 07/17/24 20:50 Alprazolam (*Crx) 0.25 Mg Tablet PO 0.25 mg BID PRN Administration Anxiety Amitriptyline HCl 25 mg 07/13/24 23:15 07/17/24 20:50 Amitriptyline Hcl 25 Mg Tablet PO 25 mg QHS RAJESH Administration Amoxicillin/Clavulanate Potassium 1 tablet 07/17/24 18:00 07/18/24 08:50 Amoxicillin/Clavulanate K 875-125 Mg Tab PO 1 tablet Q12HR RAJESH Administration Ciprofloxacin 500 mg 07/18/24 09:30 07/18/24 08:50 Ciprofloxacin 500 Mg Tab PO 500 mg Q12HR RAJESH Administration Fluconazole 400 mg 07/17/24 15:30 07/17/24 15:30 Fluconazole 100 Mg Tablet PO 400 mg DAILY@1500 RAJESH Administration Metoprolol Tartrate 50 mg 07/13/24 23:15 07/18/24 08:50 Metoprolol Tartrate 50 Mg Tab PO 50 mg Q12HR RAJESH Administration Morphine Sulfate 2 mg 07/13/24 23:09 Morphine Sulfate (*Crx) 2 Mg/Ml Inj IV PUSH Q4H PRN Pain Rated 7-10 Pantoprazole Sodium 40 mg 07/15/24 09:00 07/18/24 08:50 Pantoprazole 40 Mg Tablet PO 40 mg QAM RAJESH Administration Saccharomyces Boulardii 250 mg 07/15/24 13:00 07/18/24 08:50 Saccharomyces Boulardii 250 Mg Capsule PO 250 mg TID RAJESH Administration Trimethobenzamide HCl 200 mg 07/17/24 14:53 Trimethobenzamide Hcl 200 Mg/2 Ml Vial IM Q6H PRN Nausea And Vomiting Radiology Results: ITS Impressions Catheter Placement CT 07/14/24 10:34 IMPRESSION: 1. Successful CT-guided pelvic abscess drainage catheter placement. 2. 40 mL fluid was sent for aerobic and anaerobic cultures. 3. The catheter will be managed by Dr. Pinon. Abdomen/Pelvis CT 07/17/24 14:06 IMPRESSION: 1. Perforated sigmoid diverticulitis with interval near complete decompression of the previously seen right pelvic abscess post percutaneous drainage catheter placement with 1.5 cm diameter residual fluid collection. Labs Labs: Laboratory Results - last 24 hr 07/17/24 07/18/24 18:37 04:19 WBC 7.8 RBC 3.59 L Hgb 10.8 L Hct 33.8 L MCV 94.2 MCH 30.1 MCHC 32.0 RDW 12.8 Plt Count 450 H MPV 9.5 Sodium 139 Potassium 3.6 Chloride 104 Carbon Dioxide 26 Anion Gap 9 BUN 9 Creatinine 0.80 Estim Creat Clear Calc 56 Estimated GFR > 60 Glucose 94 Calcium 8.8 Total Bilirubin 0.4 AST 26 ALT 14 Alkaline Phosphatase 52 Total Protein 7.0 Albumin 3.3 L C. difficile (PCR) Negative
--- NOTE | 2024-07-18 12:16 | P.DS_ITS ---
DS: Admitting Diagnosis Discharge Date 07/18/2024 Admitting Diagnosis Diverticulitis of the intestine with perforation and abscess Hypertension GERD Anxiety DS: Discharge Diagnosis Discharge Diagnosis (1) Diverticulitis of intestine with perforation and abscess: Qualifiers: Diverticulitis bleeding: without bleeding Diverticulitis site: large intestine Qualified Code(s): K57.20 - Diverticulitis of large intestine with perforation and abscess without bleeding Code(s): K57.80 - Diverticulitis of intestine, part unspecified, with perforation and abscess without bleeding Status: Acute (2) Hypertension: Qualifiers: Hypertension type: primary hypertension Qualified Code(s): I10 - Essential (primary) hypertension Code(s): I10 - Essential (primary) hypertension Status: Acute (3) Gastroesophageal reflux disease: Code(s): K21.9 - Gastro-esophageal reflux disease without esophagitis Status: Acute (4) Anxiety: Code(s): F41.9 - Anxiety disorder, unspecified Status: Acute DS: Summary Hospital Course Reason for hospitalization: Diverticulitis of the intestine with perforation and abscess Hypertension GERD Anxiety Hospital Course: 69-year-old female with hypertension, gastroesophageal reflux disease, and anxiety who is being directly admitted to the hospital from the outpatient setting after she was found to have an enlarging diverticular abscess on CT scan done as an outpatient. Admitted to the hospital at the end of May 2024 with sigmoid diverticulitis with evidence of perforation on initial imaging. Repeat CT scan done 2 days thereafter showed a fluid and air collection in the right hemipelvis which did not appear large enough to be drained. Her exam improved, she was tolerating a diet, and she was able to be discharged home with oral antibiotics on 06/30/[address] abdomen/pelvis showed redemonstration of a diverticular abscess, increasing in size and worsening in morphology within the deep pelvis with a clear window of access for percutaneous drainage. Patient started on IV antibiotics and surgery was consulted. Patient underwent pelvic abscess drainage with catheter placement on 07/[address] Flores. Patient continued to have nausea and was having difficulty advancing diet. Repeat CT scan showed nearly complete resolution of the abscess per suhas hernandez. The drain was removed at that time. Surgery noted that patient is stable for discharge from their standpoint on antibiotics and low fiber diet. On discharge patient was tolerating her low fiber diet well denying nausea/vomiting, increased abdominal pain, and diarrhea. Patient also denied chest pain, palpitations, shortness of breath, nausea/vomiting, and diarrhea. Patient discharged home with family in a stable condition. She is to follow up with her primary care provider in 1 week and surgery in 2 weeks. Status at Discharge Functional status at discharge: independent ambulation Time Spent with Patient Time attestation: Total time spent providing and/or coordinating discharge services: Time spent: Greater than 30 minutes Exam Narrative: AF HR 90 RR 16 SpO2 100 BP 136/80 General: female in no acute respiratory distress who is nontoxic appearing, lying semi recumbent in bed. HEENT: Normocephalic. Atraumatic. Extraocular movement intact. Sclera clear and anicteric. No facial asymmetry. Chest: Lungs are clear to auscultation bilaterally. No wheezes or crackles. CV: Heart was regular rate and rhythm. Abd: Abdomen was soft. Slightly tender around drain insertion site. Nondistended. Positive bowel sounds. Gauze C/D/I. Ext: No clubbing, cyanosis, or edema. DP pulses bilaterally. Neuro: Patient is alert. Speech is clear. DS: Data Data Completed and Pending Completed studies during hospitalization: Catheter placement CT Abdomen pelvis CT Labs on day of discharge: Labs from last 24 hours 07/18/24 07/17/24 04:19 18:37 WBC 7.8 RBC 3.59 L Hgb 10.8 L Hct 33.8 L MCV 94.2 MCH 30.1 MCHC 32.0 RDW 12.8 Plt Count 450 H MPV 9.5 Sodium 139 Potassium 3.6 Chloride 104 Carbon Dioxide 26 Anion Gap 9 BUN 9 Creatinine 0.80 Estim Creat Clear Calc 56 Estimated GFR > 60 Glucose 94 Calcium 8.8 Total Bilirubin 0.4 AST 26 ALT 14 Alkaline Phosphatase 52 Total Protein 7.0 Albumin 3.3 L C. difficile (PCR) Negative Preliminary micro results at discharge 07/14/24 09:55 Anaerobic Culture - Preliminary Abscess Discharge Plan Discharge Attending physician on discharge: Steve Rockwell Discharging Clinician: Diane Hdez Anticipated Discharge Date/Time: 07/18/24 12:08 Patient Disposition: Home Activity: as tolerated Diet: as tolerated, heart healthy and low fiber Wound Care Instructions: other - see discharge instructions Discharge Instructions: Patient admitted to the hospital for an enlarging diverticular abscess as seen on CT Underwent a pelvic abscess drainage with catheter placement on 07/[address] Flores Evaluated by surgery Discharge instructions per surgery: * Low fiber diet for 2 weeks, then advance to high fiber diet * Continue antibiotics as prescribed until seen by the surgeon * Remove gauze dressing tomorrow (07/19/2024) and you may then shower over the drain site with soap and water. Apply a gauze dressing daily for at least 3-4 days or while having any drainage. Once dry, you may leave this open air. * Follow-up with Dr. Quintero in 2 weeks. We will call you with time and date of the appointment. Call sooner if you develop fevers, worsening abdominal pain, or vomiting. Obtain an EKG in 3 days to reassess qtc Monitor blood pressures Take caution while standing, rising, or moving Change positions slowly taking a break between each position change If you standing feel dizzy sit back down and take a break Encouraged to continue with yearly vaccinations Return to the emergency department if he developed sudden shortness of breath, chest pain, nausea, vomiting, upset stomach or intractable diarrhea Return to the emergency department if you develop fever greater than 101.5 Follow-up with the primary care physician within 1-2 weeks Thank you for choosing [facility] for your healthcare needs Patient Instructions: Antibiotic Form, Ciprofloxacin (By mouth), Amoxicillin/Clavulanate Potassium (By mouth), Fluconazole (By mouth), Pantoprazole (By mouth), How to Care for Your Chest or Abdominal Catheter (DC) Patient Language: Iranian Stand Alone Forms: General Discharge Information Follow-up/Referrals: Amy Quintero MD [Physician] - 2 Weeks Jacob Lr MD [Primary Care Provider] - 1 Week Discharge Medications: New pantoprazole 40 mg Tablet,Delayed Release (Dr/Ec) 40 mg PO QAM Qty: 30 0RF Saccharomyces boulardii [Florastor] 250 mg Capsule 250 mg PO TID Qty: 60 0RF fluconazole [Diflucan] 100 mg Tablet 400 mg PO DAILY@1500 Qty: 21 0RF ciprofloxacin HCl 500 mg Tablet 500 mg PO Q12HR 21 Days Qty: 42 0RF amoxicillin-pot clavulanate 875-125 mg tablet 1 tablet PO Q12H 21 Days Qty: 42 0RF Continued metoprolol tartrate 50 mg tablet 50 mg PO BID amitriptyline 25 mg tablet 25 mg PO QHS alprazolam 0.25 mg tablet 0.25 mg PO HS PRN (Reason: sleep) Rx Instructions: 1 or 2 tablets at bedtime hydrocodone-acetaminophen 5-325 mg Tablet 1 tablet PO Q4H PRN (Reason: Moderate Pain (4-6)) Qty: 15 0RF Other Ambulatory Orders: CA 12 lead EKG (Routine) Timeframe: 3 Days Location: Determined by Patient Ordered By: Diane Hdez Date of admission: 07/14/24 07:30 Primary Care Provider: Jacob Lr Admitting Provider: Steve Rockwell Attending physician on admission: Diane Hdez Condition: Stable Hospitalist MIPS Heart Failure (Exclusion) Patient has history of Heart Transplant or Left Ventricular Assistive Device?: No IF YES, STOP HERE Heart Failure (Qualifier) Patient has current or prior documentation of LVEF less than or equal to 40%, or mod/servere depressed LVSF?: No IF NO, STOP HERE
== END 2024-07-18 13:45 | disposition home or self-care (01) | DRG 392 ==
PROVIDERS: Physician Assistant; Radiology Diagnostic Radiology; Surgery; Admitting Provider Internal Medicine; PCP Internal Medicine; Visit Provider Student in an Organized Health Care Education/Training Program
PROC: 0W9 Anatomical Regions, General, Drainage (ICD-10-PCS; CPT 75989; principal; 2024-07-14 10:15)
DX: K57.20 Diverticulitis of large intestine with perforation and abscess without bleeding (principal); I10 Essential (primary) hypertension; K21.9 Gastro-esophageal reflux disease without esophagitis; F41.9 Anxiety disorder, unspecified; Z88.0 Allergy status to penicillin
CPT/HCPCS: 36415; 74177; 75989; 80048; 80053; 82948; 83735; 85025; 85027; 85610; 85730; 87070; 87075; 87181; 87186; 87205; 87493; 93005; A9270; C1729; C1769; G0378; G0379; J0692; J0696; J1836; J2250; J2405; J3010; J3480; J7040; Q9967

== ENCOUNTER 2024-07-21 15:04 | Outpatient (CLI) | payer MEDICARE, SELFPAY ==
--- OUTSIDE RECORDS SUMMARY | 2024-07-21 15:09 | XMS_ITS | Clinical Summary ---
Author Organization [facility] Address [address] [address] Phone Care Team Providers Care Knitting Tester Name Role Phone Jacob Lr MD Primary Care Provider [phone] Allergies Active Allergy Reactions Criticality Noted Date [...] Comments Blood Pressure 145/86 03/24/2017 12:00 PM ASSURANCE AUDITOR Pulse 67 03/24/2017 10:53 AM ASSURANCE AUDITOR Temperature 36 C (96.8 F) 03/24/2017 12:00 PM ASSURANCE AUDITOR Respiratory Rate 16 03/24/2017 12:00 PM ASSURANCE AUDITOR Oxygen Saturation 100% 03/24/2017 12:00 PM ASSURANCE AUDITOR Inhaled Oxygen Concentration - - Weight 72.6 kg (160 lb) 03/24/2017 10:53 AM ASSURANCE AUDITOR Height 167.6 cm (5' 6 ) 03/24/2017 10:53 AM ASSURANCE AUDITOR Body Mass Index 25.82 03/24/2017 10:53 AM ASSURANCE AUDITOR Plan of Treatment Health Maintenance Due Date [...] age to complete this topic Care Teams Knitting Tester Relationship Specialty Start Date End Date Jacob Lr MD [address], [place] [id number] PCP - General Internal Medicine 11/24/16
--- OUTSIDE RECORDS SUMMARY | 2024-07-21 15:09 | XMS_ITS | Continuity of Care Document ---
Author Name [facility] Organization [facility] Care Team Providers Care Multiple Drum Sander Name Role Phone [facility] Unavailable Unavailable Immunizations Combined list of available immunizations from the Department of Defense and Veterans Affairs facilities. Immunization Series Date Given Administered By Site Reaction Lot Number CVX Code Drug Guidance Consultant Status Comments Source COVID-19 (MODERNA), MRNA, LNP-S, PF, 100 MCG/0.5 ML DOSE 3 2020 207 complet ed MOD; [id number]; 2 [facility]
--- OUTSIDE RECORDS SUMMARY | 2024-07-21 15:09 | XMS_ITS | Continuity of Care Document ---
Author Organization [facility] Address [address] [facility] [address] [place] [address] Phone Care Team Providers Care Graphic Engineer Name Role Phone Maryan HATCH FACS, Kasi Unavailable Unavailab le Procedures Procedure Date Eye Exam Established Pt Office/outpatient Visit, Est Eye Exam & Treatment Eye Exam Established Pt Advance Directives Directive Yes / No Effective Date File Name No Information Encounters Encounter Description Practice Location Reason(s) For Visit Diagnoses Date Provider Providers Copied on Encounter [facility], [id number] [place] [address] [address], [place], [place], [id number], [place] tel:[phone] [address] Pat Abhishek Cox No Information 1 [address] Maryan Villaseñor. [address] [facility], [address], [place], [place], [address], [place]. tel:[phone] Office/outpat ient Visit, Est [facility], [address] [place] [address] [address], [place], [place], [address], [place] tel:[phone] SEC [facility] No Information 0-[address]. [address] [facility], [address], [place], [place], [address], [place]. tel:[phone] [facility], [address] [place] [address] [address], [place], [place], [address], [place] tel:[phone] SEC [facility] No Information 6-[address], [address], [place], [place], [address], [place]. tel:[phone] [facility] Eye [facility], [address], [place], [place], [address], [place] tel:[phone] SEC [facility] No Information [address], [address], [place], [place], [address], [place]. tel:[phone] Family History Family Member Type Diagnosis Age [...]
--- NOTE | 2024-07-21 15:11 | ECG_ITS ---
Test Date: 2024-07-21 15:24:28 Measurements Intervals [place] Rate: 80 P: 34 ID: 114 QRS: 59 QRSD: 92 T: 69 QT: 399 QTc: 463 Interpretive Statements SINUS RHYTHM WITH SHORT ID INTERVAL INCOMPLETE RIGHT BUNDLE BRANCH BLOCK BORDERLINE ECG Compared to ECG 07/18/2024 09:46:37 Short ID interval now present Electronically Signed On 07-21-2024 15:40:39 CDT by Joseph Silveira D.O.
== END 2024-07-21 15:05 | disposition home or self-care (01) ==
LOC: CHSCARD 15:07
PROVIDERS: PCP Internal Medicine
DX: R94.31 Abnormal electrocardiogram [ECG] [EKG] (principal); I45.10 Unspecified right bundle-branch block
CPT/HCPCS: 93005

== ENCOUNTER 2024-09-15 10:19 | Outpatient (CLI) | payer MEDICARE, SELFPAY ==
--- NOTE | ~2024-09-15 | DEXA_ITS ---
Bone Density Report Name: COOKIE RAMOS Age: 69 Sex: Female Ethnicity: White Date of : 1955 Indication: postmenopausal; screening for osteoporosis; parental hip fracture; hysterectomy; Referring Provider: CAPRI MCCORMICK Study: Bone densitometry was performed. Exam Date: September 15, 2024 Accession number: [id number] Bone Density: Region BMD T-score Z-score Classification AP Spine(L1-L4) 0.998 -0.4 1.5 Normal Femoral Neck (Left) 0.765 -0.8 0.9 Normal Total Hip (Left) 0.953 0.1 1.5 Normal Femoral Neck (Right) 0.800 -0.4 1.2 Normal Total Hip (Right) 0.925 -0.1 1.2 Normal Total Hip Mean 0.939 0.0 1.4 Normal World Health Organization criteria for BMD impression classify patients as: Normal (T-score at or above -1.0), Osteopenia (T-score between -1.0 and -2.5), or Osteoporosis (T-score at or below -2.5). 10-year Fracture Risk: FRAX not reported because: All T-scores for Spine Total, Hip Total, Femoral Neck at or above -1.0 Clinical Information Provided by Patient: Parent has had a hip fracture Has used the following medications: Vitamin D, Calcium Has the following medical conditions: Hysterectomy Patient maximum height was 66 Menopause Age: 54 No regular weight bearing exercise Does not regularly consume dairy products Onset of menses at age 15 Number of children 1 Impression: The patient has normal bone mass. The patient has risk factors, including: parental hip fracture. Discussion: BONE DENSITY IS ABOVE THE MINIMUM DESIRABLE LEVEL AT ALL SKELETAL SITES TESTED. This patient?s bone mineral density is above the minimum desirable level (T-score -1.0 or better) at all sites measured. The patient should follow a healthful lifestyle (good nutrition with adequate calcium and vitamin D, and appropriate weight-bearing exercise). Follow-Up: Consider repeating this study in 5 years or sooner if there is some new clinical indication. Reported by: WILLIAM on 09/19/2024 8:57:00 AM. Reviewed, dictated and finalized at location A.
== END 2024-09-15 10:20 | disposition home or self-care (01) ==
LOC: ANHIMG 10:20
PROVIDERS: PCP Internal Medicine; Visit Provider Obstetrics & Gynecology Gynecology
DX: Z78.0 Asymptomatic menopausal state (principal)
CPT/HCPCS: 77080

== ENCOUNTER 2024-10-02 00:18 | Day surgery (SDC) | payer MEDICARE, SELFPAY ==
[2024-09-18 12:03] VITALS: BMI 25.0
--- OUTSIDE RECORDS SUMMARY | 2024-10-02 00:21 | XMS_ITS | Continuity of Care Document ---
Author Name [facility] Organization [facility] Care Team Providers Care Laser Beam Color Scanner Operator Name Role Phone [facility] Unavailable Unavailable Immunizations Combined list of available immunizations from the Department of Defense and Veterans Affairs facilities. Immunization Series Date Given Administered By Site Reaction Lot Number CVX Code Drug Baton Teacher Status Comments Source COVID-19 (MODERNA), MRNA, LNP-S, PF, 100 MCG/0.5 ML DOSE 3 2020 207 complet ed MOD; [id number]; 2 [facility]
--- OUTSIDE RECORDS SUMMARY | 2024-10-02 00:21 | XMS_ITS | Clinical Summary ---
Author Organization [facility] Address [address] [address] Phone Care Team Providers Care Reserve Operator Name Role Phone Jacob Lr MD Primary Care Provider [phone] Allergies Active Allergy Reactions Criticality Noted Date [...] Comments Blood Pressure 145/86 03/24/2017 12:00 PM SUPERVISOR CEREAL Pulse 67 03/24/2017 10:53 AM SUPERVISOR CEREAL Temperature 36 C (96.8 F) 03/24/2017 12:00 PM SUPERVISOR CEREAL Respiratory Rate 16 03/24/2017 12:00 PM SUPERVISOR CEREAL Oxygen Saturation 100% 03/24/2017 12:00 PM SUPERVISOR CEREAL Inhaled Oxygen Concentration - - Weight 72.6 kg (160 lb) 03/24/2017 10:53 AM SUPERVISOR CEREAL Height 167.6 cm (5' 6) 03/24/2017 10:53 AM SUPERVISOR CEREAL Body Mass Index 25.82 03/24/2017 10:53 AM SUPERVISOR CEREAL Plan of Treatment Health Maintenance Due Date [...] age to complete this topic Care Teams Reserve Operator Relationship Specialty Start Date End Date Jacob Lr MD [address] [place], [place] [id number] PCP - General Internal Medicine 11/24/16
--- OUTSIDE RECORDS SUMMARY | 2024-10-02 00:21 | XMS_ITS | Continuity of Care Document ---
Author Organization [facility] Address [address] [facility] [address] [place] [address] Phone Care Team Providers Care Excavating Contractor Name Role Phone Maryan HATCH FACS, Kasi Unavailable Unavailab le Procedures Procedure Date Eye Exam Established Pt Office/outpatient Visit, Est Eye Exam & Treatment Eye Exam Established Pt Advance Directives Directive Yes / No Effective Date File Name No Information Encounters Encounter Description Practice Location Reason(s) For Visit Diagnoses Date Provider Providers Copied on Encounter [facility], [address] [place] [address] [address], [place], [place], [address], [place] tel:[phone] [address] Pat Abhishek Cox No Information 7 Mary[address] Villaseñor. [address] [employer] [facility], [address], [place], [place], [address], [place]. tel:[phone] Office/outpat ient Visit, Est [facility], [address] [place] [address] [address], [place], [place], [address], [place] tel:[phone] SEC [facility] No Information 0-200 [address] Vazquez. [address] [facility], [address], [place], [place], [address], [place]. tel:[phone] [facility], [address] [place] [address] [address], [place], [place], [address], [place] tel:[phone] SEC [facility] No Information 6-[address], [address], [place], [place], [address], [place]. tel:[phone] [facility], [address], [place], [place], [address], [place] tel:[phone] SEC [facility] No Information [address], [address], [place], [place], [address], [place]. tel:[phone] Family History Family Member Type Diagnosis Age At Onset No Information Payers Payer name Insurance type Covered democrat ID Authoriza tion(s) No Information Social History [...]
[2024-10-02 10:15] VITALS: BP 138/85; PULSE 77; RESP 17; TEMP 36.2; O2SAT 100; BMI 25.0
--- NOTE | 2024-10-02 10:27 | WPDANESEPPF ---
Anes - Initial Pre Proc Eval Procedure: Operation Date: 10/02/24 11:30 Proposed Procedures p Colonoscopy - Naeem Levin MD Date/Time: 10/02/24 10:27 Surgeon: Naeem Levin MD Pre Op Diagnosis: Diverticulitis of large intestine with perforation Patient Data Age: 69 Gender: F Height: 1.68 m Weight: 70.3 kg Last Vital Signs Temp 97.2 F L 10/02/24 10:15 Pulse 77 10/02/24 10:15 Resp 17 10/02/24 10:15 BP 138/85 10/02/24 10:15 Pulse Ox 100 10/02/24 10:15 O2 Del Method Room Air 10/02/24 10:15 Allergies Allergy/AdvReac Type Severity Reaction Status Date / Time Penicillins Allergy Unknown Unknown Verified 10/02/24 10:14 piperacillin Allergy Unknown Rash Verified 10/02/24 10:14 tazobactam Allergy Unknown Rash Verified 10/02/24 10:14 Home Medications ?Medication ?Instructions ?Recorded ?Confirmed ?Type alprazolam 0.25 mg tablet 0.25 mg PO HS PRN sleep 07/24/20 09/18/24 History amitriptyline 25 mg tablet 25 mg PO QHS 07/24/20 09/18/24 History metoprolol tartrate 50 mg tablet 50 mg PO BID 07/24/20 10/02/24 History pantoprazole 40 mg tablet,delayed 40 mg PO QAM #30 tabs 07/18/24 08/02/24 Rx release sodium sul 1.479 gram-potas ch See Rx Instructions PO PER PKG DIR 08/04/24 09/18/24 Rx 0.188 gram-magnes sul 0.225 gram #24 tabs tablet (Sutab) calcium phosphate,dibasic 77 1 tablet PO DAILY 09/18/24 09/18/24 History mg-vitamin D3 400 unit tablet docusate sodium 100 mg capsule 100 mg PO DAILY 09/18/24 09/18/24 History (Colace) magnesium 200 mg tablet 200 mg PO DAILY 09/18/24 09/18/24 History multivitamin (Daily Multi-Vitamin 1 tablet PO DAILY 09/18/24 09/18/24 History tablet) Patient hx anesthesia problems: none Family hx anesthesia problems: none Results Review: All pre-operative results and documents have been reviewed as part of the pre-operative evaluation. [facility] Past Medical History Medical History Hypertension Anxiety Gastroesophageal reflux disease Diverticulitis (05/2024) Surgical History Surgical History History of partial hysterectomy History of bladder surgery Family History Family History Sibling Depression Family history of malignant neoplasm of uterus Family history of malignant neoplasm of breast in first degree relative Patient's sister is in good health Mother Family history of lung cancer Father Family history of congestive heart failure Family history of heart disease in male family member before age 55 Other Family history of cardiovascular disease Hypertension Social History Social History Social History: Surrogate medical decision maker: Wyatt Monzon, row[place]. Code status: Full code. Smoking status: Never smoker Alcohol intake: never Substance use: never Substance use type: does not use Do You Feel Safe in your Home?: Yes Lack of Transportation: No Lack of Food: Never True Current Housing: I Have Housing Concerned About Future Housing: No Difficulty Paying Gas/Electric Bills: No Difficulty Paying for Meds: No Currently Unemployed: No Education: Bachelor's Degree Difficulty w/ Childcare or Family Care: No Spiritual care concerns: No Anes - Eval Final PreProcedure Day of Procedure 10/02/24 10:27 Patient weight: normal Heart: regular rate and rhythm Lungs: clear to auscultation Airway: Mallampati scale class II Neurological: alert and oriented Last oral intake: >/= 8 hours ASA classification: III Emergent: no Anesthetic plan: proceed Anesthesia type and monitoring: general GIVS and standard monitoring Results Review: All pre-operative results and documents have been reviewed as part of the pre-operative evaluation. Informed Consent: The patient's anesthetic plan and its attendant risks and benefits were discussed with the patient/family/POA. Questions were solicited and answers provided to the satisfaction of the patient/family/POA.
--- NOTE | 2024-10-02 10:48 | PM.IMHP ---
H&P: HPI History of Present Illness Date/Time: 10/02/24 10:48 Chief Complaint: History of recent diverticulitis Narrative: this patient had a 2nd episode of diverticulitis in June this year. She is here for colonoscopy. Her last colonoscopy was more than 10 years ago. Review of Systems Review of Systems: All systems reviewed & are unremarkable except as noted in HPI and below PMFSH Past Medical History Medical History Hypertension Anxiety Gastroesophageal reflux disease Diverticulitis (05/2024) Surgical History Surgical History History of partial hysterectomy History of bladder surgery Family History Family History Sibling Depression Family history of malignant neoplasm of uterus Family history of malignant neoplasm of breast in first degree relative Patient's sister is in good health Mother Family history of lung cancer Father Family history of congestive heart failure Family history of heart disease in male family member before age 55 Other Family history of cardiovascular disease Hypertension Social History Social History Social History: Surrogate medical decision maker: Wyatt Monzon, row[place]. Code status: Full code. Smoking status: Never smoker Alcohol intake: never Substance use: never Substance use type: does not use Do You Feel Safe in your Home?: Yes Lack of Transportation: No Lack of Food: Never True Current Housing: I Have Housing Concerned About Future Housing: No Difficulty Paying Gas/Electric Bills: No Difficulty Paying for Meds: No Currently Unemployed: No Education: Bachelor's Degree Difficulty w/ Childcare or Family Care: No Spiritual care concerns: No Meds Home Medications and Allergies Home Medications ?Medication ?Instructions ?Recorded ?Confirmed ?Type alprazolam 0.25 mg tablet 0.25 mg PO HS PRN sleep 07/24/20 09/18/24 History amitriptyline 25 mg tablet 25 mg PO QHS 07/24/20 09/18/24 History metoprolol tartrate 50 mg tablet 50 mg PO BID 07/24/20 10/02/24 History pantoprazole 40 mg tablet,delayed 40 mg PO QAM #30 tabs 07/18/24 08/02/24 Rx release sodium sul 1.479 gram-potas ch See Rx Instructions PO PER PKG DIR 08/04/24 09/18/24 Rx 0.188 gram-magnes sul 0.225 gram #24 tabs tablet (Sutab) calcium phosphate,dibasic 77 1 tablet PO DAILY 09/18/24 09/18/24 History mg-vitamin D3 400 unit tablet docusate sodium 100 mg capsule 100 mg PO DAILY 09/18/24 09/18/24 History (Colace) magnesium 200 mg tablet 200 mg PO DAILY 09/18/24 09/18/24 History multivitamin (Daily Multi-Vitamin 1 tablet PO DAILY 09/18/24 09/18/24 History tablet) Allergies Allergy/AdvReac Type Severity Reaction Status Date / Time Penicillins Allergy Unknown Unknown Verified 10/02/24 10:14 piperacillin Allergy Unknown Rash Verified 10/02/24 10:14 tazobactam Allergy Unknown Rash Verified 10/02/24 10:14 Vital Signs Vital Signs - 24 hr 10/02/24 10:15 Temperature 97.2 F L Pulse Rate 77 Respiratory Rate 17 Blood Pressure 138/85 Pulse Oximetry 100 Oxygen Delivery Room Air Exam Const: General: cooperative and healthy appearing Resp: Effort & Inspection: normal respiratory effort and able to speak in complete sentences Auscultation: clear to auscultation bilaterally Cardio: Rate: regular rate Rhythm: regular rhythm GI: Inspection: normal to inspection GI Palp: No No hepatosplenomegaly present Auscultation: normal bowel sounds Rectal Exam: deferred Skin: General skin exam: normal color Psych: Appearance: grossly normal Mental Status: mental status grossly normal Assessment and Plan Assessment and plan (1) Diverticulitis: Onset Date: 05/2024 Code(s): K57.92 - Diverticulitis of intestine, part unspecified, without perforation or abscess without bleeding Status: Acute Assessment and Plan: The patient is deemed a good candidate for the procedure. Consent signed. Will proceed.
[2024-10-02] MEDS: LACTATED RINGERS 1,000 ML 150 ML IV CONT (12:08)
[2024-10-02 12:39] VITALS: BP 163/86; PULSE 77; RESP 16; O2SAT 100
[2024-10-02 12:49] VITALS: BP 152/89; PULSE 70; RESP 11; O2SAT 100
[2024-10-02 12:59] VITALS: BP 145/93; PULSE 70; RESP 18; O2SAT 100
== END 2024-10-02 13:24 | disposition home or self-care (01) ==
PROVIDERS: PCP Internal Medicine; Referring Provider Surgery; Visit Provider Internal Medicine Gastroenterology
PROC: 0DJD8ZZ Inspection of Lower Intestinal Tract, Via Natural or Artificial Opening Endoscopic (ICD-10-PCS; CPT 45378; principal; 2024-10-02 11:30)
DX: Z09 Encounter for follow-up examination after completed treatment for conditions other than malignant neoplasm (principal); K57.30 Diverticulosis of large intestine without perforation or abscess without bleeding; I10 Essential (primary) hypertension; F41.9 Anxiety disorder, unspecified; K21.9 Gastro-esophageal reflux disease without esophagitis; Z98.890 Other specified postprocedural states; Z80.49 Family history of malignant neoplasm of other genital organs; Z80.3 Family history of malignant neoplasm of breast; Z80.1 Family history of malignant neoplasm of trachea, bronchus and lung; Z82.49 Family history of ischemic heart disease and other diseases of the circulatory system
CPT/HCPCS: 45378; J2003; J2704; J7120

== ENCOUNTER 2024-10-27 14:39 | Outpatient (CLI) | payer MEDICARE, SELFPAY ==
--- NOTE | ~2024-10-27 | MM_ITS ---
EXAMINATION: MM screening trey BI w alyson HISTORY: Screening TECHNIQUE: Craniocaudal and mediolateral oblique 3-D tomosynthesis images were obtained and synthetic 2-D images were generated. CAD analysis was submitted and interpreted. COMPARISON: Comparison to multiple prior studies sequentially, with oldest reviewed study dated 06/10. BREAST PARENCHYMAL COMPOSITION: Not dense: There are scattered areas of fibroglandular density. FINDINGS: There is no evidence of suspicious mass, calcification, or architectural distortion to sugg est malignancy in either breast. There has been no suspicious interval change. IMPRESSION: 1. No mammographic evidence of malignancy. 2. Recommend routine screening mammography in one year. BI-RADS Category 1: Negative Reviewed, dictated and finalized at location B.
--- OUTSIDE RECORDS SUMMARY | 2024-10-27 14:43 | XMS_ITS | Continuity of Care Document ---
Author Name [facility] Organization [facility] Care Team Providers Care Nursing Services Manager Name Role Phone [facility] Unavailable Unavailable Immunizations Combined list of available immunizations from the Department of Defense and Veterans Affairs facilities. Immunization Series Date Given Administered By Site Reaction Lot Number CVX Code Drug Disposal Operator Status Comments Source COVID-19 (MODERNA), MRNA, LNP-S, PF, 100 MCG/0.5 ML DOSE 3 2020 207 complet ed MOD; [id number]; 2 [facility]
--- OUTSIDE RECORDS SUMMARY | 2024-10-27 14:44 | XMS_ITS | Continuity of Care Document ---
Author Organization [facility] Address [address] [place] [address] Phone Care Team Providers Care Fence Supervisor Name Role Phone Maryan HATCH FACS, Kasi Unavailable Unavailab le Procedures Procedure Date Eye Exam Established Pt Office/outpatient Visit, Est Eye Exam & Treatment Eye Exam Established Pt Advance Directives Directive Yes / No Effective Date File Name No Information Encounters Encounter Description Practice Location Reason(s) For Visit Diagnoses Date Provider Providers Copied on Encounter [facility], [address] [place] [address] [address], [place], [place], [id number], [place] tel:[phone] SEC Pat Abhishek Cox No Information [address] [employer] [facility], [address], [place], [place], [id number], [place]. tel:[phone] Office/outpat ient Visit, Est [facility], [address] [place] [address] [address], [place], [place], [id number], [place] tel:[phone] SEC [facility] No Information 0-[address] Delgado Vazquez. [address] [facility], [address], [place], [place], [id number], [place]. tel:[phone] [facility], [id number] [place] [address] [address], [place], [place], [id number], [place] tel:[phone] SEC [facility] No Information 6-[address] Del[address] Vazquez. [address], [address], [place], [place], [id number], [place]. tel:[phone] [facility], [address], [place], [place], [id number], [place] tel:[phone] SEC [facility] No Information [address] Vazquez. [address], [address], [place], [place], [address], [place]. tel:[phone] Family History Family Member Type Diagnosis Age [...]
--- OUTSIDE RECORDS SUMMARY | 2024-10-27 14:44 | XMS_ITS | Clinical Summary ---
Author Organization [facility] Address [address] [address] Phone Care Team Providers Care Trial Manager Name Role Phone Jacob Lr MD Primary Care Provider [phone] Allergies Active Allergy Reactions Criticality Noted Date [...] Comments Blood Pressure 145/86 03/24/2017 12:00 PM SCHOOL DIRECTOR Pulse 67 03/24/2017 10:53 AM SCHOOL DIRECTOR Temperature 36 C (96.8 F) 03/24/2017 12:00 PM SCHOOL DIRECTOR Respiratory Rate 16 03/24/2017 12:00 PM SCHOOL DIRECTOR Oxygen Saturation 100% 03/24/2017 12:00 PM SCHOOL DIRECTOR Inhaled Oxygen Concentration - - Weight 72.6 kg (160 lb) 03/24/2017 10:53 AM SCHOOL DIRECTOR Height 167.6 cm (5' 6) 03/24/2017 10:53 AM SCHOOL DIRECTOR Body Mass Index 25.82 03/24/2017 10:53 AM SCHOOL DIRECTOR Plan of Treatment Health Maintenance Due Date Last Done Comments Hepatitis C Virus (HCV) Screening 1955 TdaP Immunization 1955 Cologuard 2002 Colonoscopy 2002 Colorectal Cancer Screening 2002 Immunochemical Fecal Occult Blood 2002 Pneumococcal Immunization (5 0+ years) (1 of 1 - PCV) 2007 Zoster Immunization (1 of 2) 2007 SARS-COV-2 Immunization (1 - 2023-) 11/28/2023 Influenza Immunization (#1) 2024 Respiratory Syncytial Virus (RSV) Immunization (Adult) (1 - 1-dose 75+ series) 02/02/2032 Hepatitis B Immunization Aged Out No longer eligible based on patient's age to complete this topic Human Papillomavirus (HPV) Immunization Aged Out No longer eligible b ased on patient's age to complete this topic Meningococcal Immunization (ACWY) Aged Out No longer eligible based on patient's age to complete this topic Rotavirus Immunization Aged Out No lo nger eligible based on patient's age to complete this topic Care Teams Trial Manager Relationship Specialty Start Date End Date Jaocb Lr MD [address] [place], [place] [id number] PCP - General Internal Medicine 11/24/16
== END 2024-10-27 14:40 | disposition home or self-care (01) ==
LOC: ANHIMG 14:41
PROVIDERS: PCP Internal Medicine; Visit Provider Obstetrics & Gynecology Gynecology
DX: Z12.31 Encounter for screening mammogram for malignant neoplasm of breast (principal)
CPT/HCPCS: 77063; 77067